=== PATIENT | male | born 1940 | race Caucasian/White ===

== ENCOUNTER 2018-01-14 08:00 | Outpatient (RCR) | payer MEDICARE, SELFPAY ==
--- NOTE | 2017-11-18 14:40 | HMH.PTOPEV ---
Rehab Outpatient Evaluation Rehab OP Evaluation Start: 11/18/17 14:00 Freq: Status: Active Protocol: Document 11/18/17 14:00 ELIABINH (Rec: 11/18/17 14:39 ELIABINH [id number]) Electronically Signed By Rico Payan PT 11/18/17 14:00 Outpatient Therapy Subjective History Subjective History This is the initial Physical Therapy evaluation for Alen Luna. Pt is a 77 y/o male referred to PT for c/o Bilateral shoulder pain and paresthesia and pain in BUE. Pt reports insiidous onset ~ 2 years ago of paresthesia. Pt reports R shoulder pain began ! 2 years ago as he was lifting a bucket out of his chicken picker truck, L shoulder pt reports he was pushing up to get out of bathtub. Pt reports L shoulder was improving but fell ~ 3 months ago and re-aggravated it. 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 Chief Complaint Pain Stiff Paresthesia Weakness Symptom Type Ache Throb Dull Numbness Tingling Symptoms Relieved By Rest/Positioning Symptoms Aggravated By Lifting Prior Functional Limitations None Current Functional Limitations Lifting Housework Dressing Driving Recreation Activity Symptom Description Intermittent Level of pain today (0-10) 0 Pain scale - at its best (0-10) 0 Pain scale - at its worst (0-10) 4 Cervical Eval Palpation Cervical/Thoracic Palpation Findings Muscle Guarding Posture Head/C-Spine Posture Sitting Position Flexed Head/C-Spine Posture Standing Position Flexed Passive Joint Mobility Cervical PIVM Dec: R C2/3 L C2/3 R C3/4 L C3/4 R C4/5 L C4/5
== END 2018-01-14 08:01 | disposition home or self-care (01) ==
LOC: PT 08:00
PROVIDERS: PCP Internal Medicine; Visit Provider Internal Medicine
DX: M54.2 Cervicalgia (principal); M25.511 Pain in right shoulder; M25.512 Pain in left shoulder
CPT/HCPCS: 97010; 97012; 97014; 97110; 97164; G0283

== ENCOUNTER → 2018-08-04 15:58 | Outpatient (POV) | payer MEDICARE, SELFPAY | DX: Z00.00 Encounter for general adult medical examination without abnormal findings (principal) ==

== ENCOUNTER → 2018-11-22 15:12 | Outpatient (CLI) | payer MEDICARE, SELFPAY ==
[2018-11-22 15:48] LABS: Basophils # 0.1 K/mm3 (0-0.2); Basophils % 1.6 % (0.1-2.0); Eosinophils # 0.3 K/mm3 (0.0-0.4); Eosinophils % 4.3 % (0.1-12.0); Hematocrit 42.1 % (42.0-52.0); Hemoglobin 14.2 g/dL (14.1-18.0); Lymphocytes # 2.1 K/mm3 (0.7-4.5); Lymphocytes % 30.9 % (10-50); Mean Corpuscular HGB Conc 33.7 g/dL (31.8-35.4); Mean Corpuscular Hemoglobin 28.6 pg (27.0-31.2); Mean Corpuscular Volume 84.8 fl (80-94); Mean Platelet Volume 9.5 fl (7.4-10.4); Monocytes # 0.4 K/mm3 (0.1-1.0); Monocytes % 5.8 % (1.7-9.3); Neutrophils % 57.4 % (37.0-80.0); Platelet Count 175 K/mm3 (142-424); Red Blood Count 4.97 M/mm3 (4.60-6.20); Red Cell Distribution Width 13.9 % (11.5-17.5); White Blood Count 6.9 K/mm3 (4.8-10.8)
[2018-11-22 17:27] LABS: Anion Gap 11.8 mEq/L (5-15); Blood Urea Nitrogen 25 mg/dL (7-18); Calcium 9.5 mg/dL (8.5-10.1); Carbon Dioxide 30 mmol/L (21.0-32.0); Chloride 101 mmol/L (98-107); Creatinine,Serum 1.31 mg/dL (0.70-1.30); Estimated Glomerular Filt Rate 53 ml/min (>60); GFR (African American) 64 ML/MIN (>60); Glucose 122 mg/dL (74-106); Sodium 139 mmol/L (136-145)
[2018-11-22 17:30] LABS: Potassium 3.8 mmoL/L (3.5-5.1)
== END ==
PROVIDERS: PCP Internal Medicine; Visit Provider Internal Medicine
DX: Z01.818 Encounter for other preprocedural examination (principal)
CPT/HCPCS: 36415; 80048; 85025; 93005

== ENCOUNTER → 2019-02-09 13:12 | Outpatient (POV) | payer MEDICARE, SELFPAY | DX: Z00.00 Encounter for general adult medical examination without abnormal findings (principal) ==

== ENCOUNTER → 2019-03-30 13:23 | Outpatient (POV) | payer MEDICARE, SELFPAY | DX: Z00.00 Encounter for general adult medical examination without abnormal findings (principal) ==

== ENCOUNTER → 2019-04-13 14:56 | Outpatient (POV) | payer MEDICARE, SELFPAY | DX: Z00.00 Encounter for general adult medical examination without abnormal findings (principal) ==

== ENCOUNTER → 2019-05-10 10:22 | Outpatient (CLI) | payer MEDICARE, SELFPAY ==
[2019-05-10 10:39] LABS: Basophils # 0.1 K/mm3 (0-0.2); Basophils % 0.7 % (0.1-2.0); Eosinophils # 0.4 K/mm3 (0.0-0.4); Eosinophils % 4.2 % (0.1-12.0); Hematocrit 41.8 % (42.0-52.0); Hemoglobin 13.8 g/dL (14.1-18.0); Lymphocytes # 1.8 K/mm3 (0.7-4.5); Lymphocytes % 19.3 % (10-50); Mean Corpuscular HGB Conc 33.1 g/dL (31.8-35.4); Mean Corpuscular Hemoglobin 27.9 pg (27.0-31.2); Mean Corpuscular Volume 84.3 fl (80-94); Monocytes # 0.7 K/mm3 (0.1-1.0); Monocytes % 7.5 % (1.7-9.3); Neutrophils # 6.4 K/mm3 (1.8-7.8); Neutrophils % 68.2 % (37.0-80.0); Platelet Count 189 K/mm3 (142-424); Red Blood Count 4.96 M/mm3 (4.60-6.20); Red Cell Distribution Width 14.6 % (11.5-17.5); White Blood Count 9.3 K/mm3 (4.8-10.8)
--- NOTE | 2019-05-10 13:14 | CT_ITS ---
Procedure: CT ABDOMEN PELVIS WO CON CLINICAL INDICATION: LOWER ABD PAIN,RLQ TENDERNESS ORAL ONLY Right lower quadrant tenderness and pain, lower abdominal pain COMPARISON: No exams were available for comparison TECHNIQUE: Axial images obtained with sagittal and coronal reformats. All CT scans at the facility use one or more dose reduction, viz: automated exposure control, ma/kV adjustment per patient size (including targeted exams where dose is matched to indication, i.e. head), or iterative reconstruction technique. FINDINGS: The lung bases are clear. There is mild fatty liver. No calcified gallstones are evident. The spleen, and adrenal glands have an unremarkable appearance. There is some small coarse calcifications in the uncinate process of the pancreas and could be related to chronic pancreatitis or small calcifications in a lymph node. No evidence of acute pancreatitis. No renal or ureteral calculi. No hydronephrosis. No intestinal obstruction or free air. Oral contrast was given with contrast noted within the large bowel. No evidence of appendicitis. There is diverticulosis of the sigmoid colon with moderate thickening of the sigmoid colon with mild infiltration of the pericolic fat consistent with mild diverticulitis. There is a fairly long segment of thickening of the sigmoid colon which could be related to muscular hypertrophy or associated colitis. No abscess or pneumoperitoneum. Artifact is present from bilateral hip prosthesis. 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 The cleft is incomplete. IMPRESSION: Diverticulitis of the sigmoid colon. There is long segment thickening of the sigmoid colon which may be due to superimposed colitis or muscular hypertrophy from the extensive diverticulosis. No abscess or pneumoperitoneum. Strongly encourage follow-up after treatment to assure resolution of the thickening as neoplasm would be included in the differential diagnosis. No evidence of appendicitis or obstructing ureteral calculus. Possible chronic pancreatitis in the head of the pancreas Dictated by: Dio Rodriguez MD 05/10/2019 13:53 Signed by: <Electronically signed by Dio Rodriguez MD in [place]> 05/10/2019 13:53
== END ==
LOC: LAB.DROPOF 10:23 → RAD 10:58
PROVIDERS: PCP Internal Medicine; Visit Provider Internal Medicine
DX: R10.31 Right lower quadrant pain (principal)
CPT/HCPCS: 74176; 85025

== ENCOUNTER → 2021-03-20 13:31 | Outpatient (POV) | payer MEDICARE, SELFPAY | DX: Z00.00 Encounter for general adult medical examination without abnormal findings (principal) ==

== ENCOUNTER → 2021-10-29 09:21 | Outpatient (CLI) | payer MEDICARE, SELFPAY ==
[2021-10-30 08:33] LABS: Covid-19 Nasal PCR Sendout Lex NOT DETECTED
== END ==
PROVIDERS: Visit Provider Nurse Practitioner
DX: Z20.822 Contact with and (suspected) exposure to COVID-19 (principal)
CPT/HCPCS: C9803; U0004; U0005

== ENCOUNTER → 2021-12-17 08:37 | Outpatient (CLI) | payer MEDICARE, SELFPAY ==
[2021-12-17 08:56] LABS: Basophils # 0.1 K/mm3 (0-0.2); Basophils % 2.1 % (0.1-2.0); Eosinophils # 0.4 K/mm3 (0.0-0.4); Eosinophils % 6.9 % (0.1-12.0); Hematocrit 44.5 % (42.0-52.0); Hemoglobin 14.3 g/dL (14.1-18.0); Lymphocytes % 32.9 % (10-50); Mean Corpuscular HGB Conc 32.2 g/dL (31.8-35.4); Mean Corpuscular Hemoglobin 28.2 pg (27.0-31.2); Mean Corpuscular Volume 87.6 fl (80-94); Monocytes # 0.4 K/mm3 (0.1-1.0); Monocytes % 6.2 % (1.7-9.3); Neutrophils # 3.1 K/mm3 (1.8-7.8); Platelet Count 177 K/mm3 (142-424); Red Blood Count 5.07 M/mm3 (4.60-6.20); Red Cell Distribution Width 14.7 % (11.5-17.5)
[2021-12-17 09:25] LABS: Alanine Aminotransferase 25 U/L (12-78); Albumin Level 4.4 g/dl (3.5-5.0); Albumin/Globulin Ratio 1.8 (1.1-1.8); Alkaline Phosphatase 31 U/L (38-126); Anion Gap 9.9 mEq/L (5-15); Aspartate Amino Transferase 26 U/L (17-59); Bilirubin,Total 0.5 mg/dl (0.2-1.3); Blood Urea Nitrogen 25 mg/dl (9-20); Calcium 9.4 mg/dl (8.4-10.2); Carbon Dioxide 26 mmol/L (22.0-30.0); Chloride 106 mmol/L (98-107); Chol/HDL Ratio 3.7 (1-3.5); Cholesterol 136 mg/dl (140-200); Estimated Glomerular Filt Rate 58 ml/min (>60); GFR (African American) 71 ML/MIN (>60); Globulin 2.5 g/dL (1.3-3.2); Glucose 120 mg/dl (74-100); HDL Cholesterol 37 mg/dl (40-60); Potassium 3.9 mmoL/L (3.5-5.1); Sodium 138 mmol/L (136-145); Total Protein,Serum 6.9 g/dl (6.3-8.2); Triglycerides 189 mg/dl (30-150); VLDL Cholesterol 38 mg/dL (0-40)
[2021-12-17 09:35] LABS: Direct LDL Cholesterol 67.96 mg/dL (100-129)
[2021-12-17 09:53] LABS: Prostate Specific Ag, Diagnost 1.64 ng/ml (0.0-4.0)
[2021-12-17 10:11] LABS: Vitamin B12 267 pg/mL (239-931)
== END ==
PROVIDERS: Visit Provider Internal Medicine
DX: I25.10 Atherosclerotic heart disease of native coronary artery without angina pectoris (principal); I25.2 Old myocardial infarction; I10 Essential (primary) hypertension; R73.01 Impaired fasting glucose; E78.5 Hyperlipidemia, unspecified; E53.8 Deficiency of other specified B group vitamins; M47.817 Spondylosis without myelopathy or radiculopathy, lumbosacral region; G60.9 Hereditary and idiopathic neuropathy, unspecified; N40.1 Benign prostatic hyperplasia with lower urinary tract symptoms; Z12.5 Encounter for screening for malignant neoplasm of prostate
CPT/HCPCS: 36415; 80053; 80061; 82607; 84153; 85025

== ENCOUNTER 2022-04-25 16:33 | Emergency (ER) | payer MEDICARE, SELFPAY ==
[2022-04-25 16:50] VITALS: BP 144/72; PULSE 88; RESP 19; TEMP 38.1; O2SAT 96; BMI 29.4
--- NOTE | 2022-04-25 17:20 | HMH.EDUTC ---
[facility] Disposition Clinical Impression: Viral syndrome Disposition: Home, Self-Care Condition on Discharge: Good Instructions: DI for COVID-19 (Suspected or Confirmed ), Preventing the Spread of Coronavirus Discharge Instructions Additional Instructions: *Monitor Temp, Over the counter Motrin or Tylenol as directed/as needed Tylenol every 4 hours and Motrin every 6 hours (as long as your family doctor has told you that you can take it) for fever or pain. and straight to ER if unable to lower temp less than 101.0 after medication given *Warm salt water gargles may help to soothe the throat *Throat Lozenges *Warm fluids like tea with honey may help to soothe the throat *Sleep elevated *Humidifier/Vaporizer Follow up IMMEDIATELY for new or worsening symptoms or no Noticeable improvement over the next 48-72 hours. 911 for difficulty breathing or swallowing You were tested for today for COVID19 your test result should be back in the next 24-48 hours, you may check your results on the [facility] My Health Portal Make sure to take your Vitamins Vit. C Vit D and Zinc if you can take them Referrals: Trae Lujan MD [Primary Care Provider] - As needed Time of Disposition: 17:25 Medical Decision Making - Carlos Inquiry Pt receiving controlled substance: No Carlos was queried for this patient: No Vital Signs: 04/25/22 16:50 Temperature 100.6 F H Temperature Source Oral Pulse Rate [Left Brachial] 88 Respiratory Rate 19 Blood Pressure [Left Arm] 144/72 H Blood Pressure Mean [Left Arm] 96 Blood Pressure Source [Left Arm] Automatic Cuff Blood Pressure Position [Left Arm] Sitting 02 Sat by Pulse Oximetry 96 Oxygen Delivery Method Room Air Orders (Tests/Meds): ORDERS Category Date Time Status Covid-19 Nasal PCR ([facility]) Routine Lab 04/25/22 16:48 Received [facility] HPI - General Stated complaint: covid test,body aches, SOA Time Seen by Provider: 04/25/22 17:20 Mode of Arrival: Ambulatory Source of Information: Patient Limitations: No Limitations Description of Symptoms (Recalled from Triage Doc. by RN): PATIENT C/O COUGH, RUNNY NOSE AND CONGESTION SINCE THIS AFTERNOON HEENT Symptoms (Recalled from RN notes): Yes Resp Symptoms (Recalled from RN notes): Yes Skin Symptoms (Recalled from RN notes): No MS Symptoms (Recalled from RN notes): No Functional Status (Recalled from RN notes): WNL - History of Present Illness Provider Complaint: Patient states that he started having fever, chills, body aches and nasal congestion today State that he talked to his family doctor and they wanted him to come in and get tested for COVID so he did - Related Data Allergies Allergy/AdvReac Type Severity Reaction Status Date / Time No Known Allergies Allergy Verified 04/25/22 17:02 - Worker's Comp Is this a Worker's Comp case?: No [facility] History - Hepatitis A Screen Attestation statement:: This patient has been screened for Hepatitis A risk factors. I have reviewed the patient's past medical history: Yes - Social History Alcohol Intake: never Occupational Status: other ROS Obtained: Yes All systems reviewed & no additional complaints, Yes Systems reviewed as appropriate & no additional complaints - Constitutional Constitutional: Reports system reviewed and no additional complaints, except as docu, Reports body ache, Reports chills, Reports fever(s) - ENT Ears, Nose, Mouth, and Throat: Reports system reviewed and no additional complaints, except as docu, Reports nasal congestion - Cardiovascular Cardiovascular: Reports system reviewed and no additional complaints, except as docu - Respiratory Respiratory: Reports system reviewed and no additional complaints, except as docu - Gastrointestinal Gastrointestingal: Reports: system reviewed and no additional complaints, except as docu Physical Exam - General General appearance: alert, in no apparent distress - Expanded ENT Exam Nose exam: Absent: sinus tenderne
[2022-04-25 17:25] VITALS: BP 144/72; PULSE 88; RESP 19; TEMP 38.1; O2SAT 96
== END 2022-04-25 17:29 | disposition home or self-care (01) ==
PROVIDERS: Emergency Provider Nurse Practitioner; PCP Internal Medicine
DX: B34.9 Viral infection, unspecified (principal)
CPT/HCPCS: 99212; C9803; G0463; U0003; U0005

== ENCOUNTER 2022-05-06 09:25 | Emergency (ER) | payer MEDICARE, SELFPAY ==
[2022-05-06 10:26] VITALS: BP 0/0; PULSE 0; RESP 0; TEMP -17.7; TEMP 0
== END 2022-05-06 10:27 | disposition left against medical advice (07) ==
LOC: UTC 09:28
PROVIDERS: Emergency Provider Nurse Practitioner; PCP Internal Medicine
DX: Z53.21 Procedure and treatment not carried out due to patient leaving prior to being seen by health care provider (principal)

== ENCOUNTER → 2022-07-11 13:57 | Outpatient (CLI) | payer MEDICARE, SELFPAY ==
--- NOTE | 2022-07-11 14:01 | US_ITS ---
FINAL REPORT CLINICAL HISTORY: CLAUDICATION,HTN,EX SMOKER,CAD,REST PAIN FINDINGS: ANKLE-BRACHIAL PRESSURE INDICES Pressure indices are as follows: RIGHT LOWER EXTREMITY: Ankle-brachial pressure index: 1.1 Comments: Normal LEFT LOWER EXTREMITY: Ankle-brachial pressure index: 1.1 Comments: Normal IMPRESSION: No evidence of significant obstructive peripheral vascular disease of the lower extremities Reviewed, Interpreted and Dictated by Rai Maldonado III, MD Transcribed by Saida Bailey Authenticated and [facility]
== END ==
PROVIDERS: PCP Internal Medicine; Visit Provider Internal Medicine
DX: I70.213 Atherosclerosis of native arteries of extremities with intermittent claudication, bilateral legs (principal)
CPT/HCPCS: 93923

== ENCOUNTER → 2022-09-26 11:57 | Outpatient (CLI) | payer MEDICARE, SELFPAY ==
[2022-09-26 12:34] LABS: Basophils # 0.1 K/mm3 (0-0.2); Basophils % 1.3 % (0.1-2.0); Eosinophils # 0.4 K/mm3 (0.0-0.4); Eosinophils % 5.9 % (0.1-12.0); Hematocrit 42.5 % (42.0-52.0); Hemoglobin 13.8 g/dL (14.1-18.0); Lymphocytes # 1.5 K/mm3 (0.7-4.5); Lymphocytes % 25.5 % (10-50); Mean Corpuscular HGB Conc 32.5 g/dL (31.8-35.4); Mean Corpuscular Hemoglobin 27.6 pg (27.0-31.2); Mean Corpuscular Volume 85.2 fl (80-94); Monocytes # 0.4 K/mm3 (0.1-1.0); Neutrophils # 3.6 K/mm3 (1.8-7.8); Neutrophils % 60.3 % (37.0-80.0); Platelet Count 170 K/mm3 (142-424); Red Blood Count 4.99 M/mm3 (4.60-6.20); Red Cell Distribution Width 14.2 % (11.5-17.5); White Blood Count 5.9 K/mm3 (4.8-10.8)
[2022-09-26 15:34] LABS: Erythrocyte Sedimentation Rate 15 mm/hr (0-20)
== END ==
PROVIDERS: PCP Internal Medicine; Visit Provider Internal Medicine
DX: I10 Essential (primary) hypertension (principal); I73.9 Peripheral vascular disease, unspecified; G60.9 Hereditary and idiopathic neuropathy, unspecified; M48.062 Spinal stenosis, lumbar region with neurogenic claudication; M15.0 Primary generalized (osteo)arthritis
CPT/HCPCS: 85025; 85651

== ENCOUNTER 2022-11-13 09:00 | Outpatient (RCR) | payer MEDICARE, SELFPAY | END 2022-11-13 09:05 | disposition home or self-care (01) | LOC: PT 09:00 | PROVIDERS: PCP Internal Medicine; Visit Provider Internal Medicine | DX: M54.2 Cervicalgia (principal) | CPT/HCPCS: 97010; 97014; 97110; 97163; G0283 ==

== ENCOUNTER 2023-02-08 19:28 | Observation (INO) | payer MEDICARE, SELFPAY ==
[2023-02-08] VITALS (17 sets, daily range): BP systolic 99–162; BP diastolic 48–89; PULSE 42–131; RESP 14–22; TEMP 36.7–37; O2SAT 94–98; BMI 25.7
--- NOTE | 2023-02-08 19:32 | ECG_ITS ---
APPROVED REPORT Exam: Resting ECG HR:135 bpm ECG Measurements Heart Rate 135 AXES QRSd 109 QRS 54 QT 302 T 16 QTc 381 Conclusion ATRIAL FIBRILLATION WITH RAPID VENTRICULAR RESPONSE WITH ABERRANT CONDUCTION OR VENTRICULAR PREMATURE COMPLEXES NONSPECIFIC ST & T-WAVE ABNORMALITY ABNORMAL RHYTHM ECG UNCONFIRMED REPORT Electronically signed by : Catrachito Montana MD 02/09/2023 20:22:11
--- NOTE | 2023-02-08 19:46 | XR_ITS ---
PROCEDURE INFORMATION: Exam: XR Chest Exam date and time: 02/08/2023 7:57 PM Age: 82 years old Clinical indication: Pain; Chest pressure; Additional info: Chest discomfort TECHNIQUE: Imaging protocol: Radiologic exam of the chest. Views: 2 views. COMPARISON: CT ABDOMEN PELVIS WO CON 05/10/2019 1:16 PM FINDINGS: Lungs: Lungs are hypoinflated. No focal consolidation Pleural spaces: No pleural effusion. No pneumothorax. Heart/Mediastinum: No cardiomegaly. Bones/joints: Multilevel degenerative type changes of the spine. No acute osseous abnormality. IMPRESSION: No acute cardiopulmonary abnormality.
[2023-02-08 19:50] LABS: Basophils # 0.1 K/mm3 (0-0.2); Chloride 100 mmol/L (98-107); Eosinophils # 0.5 K/mm3 (0.0-0.4); Eosinophils % 8.4 % (0.1-12.0); Hematocrit 39.6 % (42.0-52.0); Hemoglobin 13.1 g/dL (14.1-18.0); Lymphocytes # 1.3 K/mm3 (0.7-4.5); Lymphocytes % 22.7 % (10-50); Mean Corpuscular HGB Conc 33.1 g/dL (31.8-35.4); Mean Corpuscular Hemoglobin 28.1 pg (27.0-31.2); Mean Corpuscular Volume 84.9 fl (80-94); Mean Platelet Volume 8.9 fl (7.4-10.4); Monocytes # 0.3 K/mm3 (0.1-1.0); Monocytes % 5.1 % (1.7-9.3); Neutrophils # 3.6 K/mm3 (1.8-7.8); Neutrophils % 62.8 % (37.0-80.0); Platelet Count 160 K/mm3 (142-424); Red Blood Count 4.66 M/mm3 (4.60-6.20); Red Cell Distribution Width 14.9 % (11.5-17.5); Sodium 137 mmol/L (136-145); White Blood Count 5.7 K/mm3 (4.8-10.8)
[2023-02-08 19:51] LABS: Potassium 3.7 mmoL/L (3.5-5.1)
[2023-02-08 19:53] LABS: Alanine Aminotransferase 26 U/L (12-78); Albumin Level 4.2 g/dl (3.5-5.0); Albumin/Globulin Ratio 1.3 (1.1-1.8); Alkaline Phosphatase 38 U/L (38-126); Anion Gap 11.7 mEq/L (5-15); Aspartate Amino Transferase 30 U/L (17-59); Bilirubin,Total 0.3 mg/dl (0.2-1.3); Blood Urea Nitrogen 38 mg/dl (9-20); Carbon Dioxide 29 mmol/L (22.0-30.0); Creatinine Clearance Estimated 34 mL/min (50-200); Estimated Glomerular Filt Rate 29 ml/min (>60); GFR (African American) 35 ML/MIN (>60); Globulin 3.3 g/dL (1.3-3.2); Total Protein,Serum 7.5 g/dl (6.3-8.2)
[2023-02-08 19:54] LABS: Calcium 9.9 mg/dl (8.4-10.2); Glucose 131 mg/dl (74-100)
[2023-02-08 20:03] LABS: NT Pro Brain Natriuretic Pep. 2590 pg/mL (0-450)
--- NOTE | 2023-02-08 20:05 | PC.NURSE ---
PATIENT TO RADIOLOGY
[2023-02-08 20:07] LABS: Troponin I < 0.01 ng/ml (0.00-0.034)
[2023-02-08 20:22] LABS: Magnesium 1.9 mg/dl (1.6-2.3)
--- NOTE | 2023-02-08 20:29 | HMH.EDCP ---
Discharge Plan Disposition Patient Disposition: Admitted As Inpatient Referrals Follow up/Referrals: Trae Lujan MD [Primary Care Provider] - See instructions Clinical Impressions Clinical Impression: Chest pain, Atrial fibrillation with rapid ventricular response, CHF (congestive heart failure), Renal insufficiency Discharge ED Provider: Avis (ED),Clarence Barnes Chest Pain HPI General Chief Complaint: Chest Pain Stated Complaint: CP Time Seen by Provider: 02/08/23 20:00 Mode of Arrival: Family Vehicle Source of Information: Patient, Spouse and Medical Record Limitations: No Limitations Description of Symptoms (Recalled from ER Triage Doc. by RN): 82 yo male with previous medical history of GERD and hypertension, presents with CC of chest pain that didn't stop despite normal maneuvers. States normally he drinks milk or water and it usually abates, but this time it didn't and he got worried. Significant other states he has also been overly tired throughout the past week. Mentions he had an episode of food poisoning a couple of weeks ago and doesn't feel like he's recovered from that. History of Present Illness HPI narrative: pt with onset of new type of chest pain has hx of gerd and cad and htn - pt has no hx of a fib MD complaint: chest pain indicative of cardiac Onset (ago): hour(s) Activity at onset: during rest Pain location: left chest Severity: moderate Quality: aching Risk Factors for CAD: Hypertension and Family Hx of CAD Treatments prior to or on arrival for Cardiac Chest Pain: none MARGE Score for Non-Stemi Age of Patient: 80-89 years old Heart Rate: 90-109 bpm Systolic Blood Pressure: 120-139 mmhg Serum Creatinine: 2.00-3.99 mg/dl CHF Killip Class: II-Pulmonary Rales or Jug Other Risk Factors: None Non-Stemi Risk Score: 181 Risk Stratification: [id number] = High Risk Related Data Prior Cardiac Testing/Procedures: Stenting Allergies Allergy/AdvReac Type Severity Reaction Status Date / Time No Known Allergies Allergy Verified 04/25/22 17:02 [facility] Disclaimer: The information contained in this section may have been updated after the patient was seen, as this information can be updated by other users. Social History Smoking Status: Former smoker alcohol intake: never current occupational status: other Travel in the last 8 weeks: None ROS Obtained: Yes All systems reviewed & no additional complaints except as documented Physical Exam General General appearance: alert Head Head exam: normocephalic Eye Eye exam: Present PERRL and EOMI ENT ENT exam: Present mucous membranes moist Neck Neck exam: Present trachea midline Respiratory Respiratory exam: Present other (dec bs bilat ); Absent respiratory distress Cardiovascular Cardiovascular exam: Present irregular rhythm, systolic murmur and +S4 Abdominal Exam Abdominal exam: Present soft Extremities Exam Extremities exam: Present full ROM Neurological Exam Neurological exam: Present alert, oriented X3 and CN II-XII intact; Absent motor sensory deficit Psychiatric Psychiatric exam: Present normal affect Skin Skin exam: Absent rash Medical Decision Making Medical Records Medical records reviewed: Yes I reviewed the patient's medical records. Carlos Inquiry Pt receiving controlled substance: No Vital Signs: 02/08/23 19:35 02/08/23 20:24 Temperature 98.2 F 98.1 F Temperature Source Oral Oral Pulse Rate 42 L Pulse Rate [Right Brachial] 131 H Respiratory Rate 22 16 Blood Pressure 117/63 Blood Pressure [Right Arm] 162/89 H Blood Pressure Mean [Right Arm] 113 Blood Pressure Source Automatic Cuff Blood Pressure Source [Right Arm] Automatic Cuff Blood Pressure Position Sitting Blood Pressure Position [Right Arm] Sitting 02 Sat by Pulse Oximetry 97 Oxygen Delivery Method Room Air Room Air Lab Data Lab results reviewed: Yes I reviewed the patient's lab results. Lab Results 02/08/23 19:34: WBC 5.7, RBC 4.66, Hgb 1
--- NOTE | 2023-02-08 20:32 | PC.NURSE ---
Hospitalist paged for possible admission
[2023-02-08 20:41] LABS: T4 (Thyroxine) 8.1 ug/dl (5.53-11.0)
[2023-02-08 20:54] LABS: Thyroid Stimulating Hormone 2.19 uIU/mL (0.465-4.68)
--- NOTE | 2023-02-08 21:00 | ECG_ITS ---
APPROVED REPORT Exam: Resting ECG HR:53 bpm ECG Measurements Heart Rate 53 AXES QRSd 104 QRS 55 QT 299 T -22 QTc 281 Conclusion SUPRAVENTRICULAR BRADYCARDIA MODERATE T-WAVE ABNORMALITY, CONSIDER INFERIOR ISCHEMIA [-0.1+ mV T-WAVE IN II/aVF] ABNORMAL ECG UNCONFIRMED REPORT Electronically signed by : Catrachito Montana MD 02/09/2023 20:21:31
--- NOTE | 2023-02-08 21:04 | EXP.HP ---
History of Present Illness *Admission Date: 02/08/23 *Reason for visit:: Palpitations *History of present illness: This is a very pleasant 82-year-old male with a past medical history of telemetry monitoring coronary artery disease status post 1 stent hypertension, BPH, GERD who presents emergency department today with complaints of palpitations. He reports having discomfort in the center of his chest earlier today and attributed it to his chronic acid reflux. He attempted to take his home medications but symptoms persisted. He then recalls feeling and hearing his heartbeat rapidly. This complaint associated with some chest discomfort brought him to the emergency department for treatment. He denies fever, cough, congestion currently but states that he had a GI bug approximately 3 weeks ago for which he ran a 3-day fever. He did endorse some nausea at that time but that has since subsided. He denies any other cardiac history other than CAD and hypertension. No history of A-fib. 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 He was medicated with 20 mg of IV diltiazem with decrease in heart rate into the 70s. He was subsequently put on a Cardizem drip at 5 mg but had further decrease in heart rate into the 50s with conversion to normal sinus rhythm. At the time of admission, bradycardic in the 50s but patient is stable and without symptoms. Given new onset A-fib with RVR, he will be admitted to the hospital service for further evaluation management. Other labs of note at a time admission is a BNP of 2590. CASTILLO with a creatinine of 2.2 which is increased from baseline of 1.1. No formal echo information available but patient does not appear volume overloaded on exam. [facility] Disclaimer: The information contained in this section may have been updated after the patient was seen, as this information can be updated by other users. Medical History (Updated 02/08/23 @ 23:27 by Lexi Melendez RN) Cataract SDH (subdural hematoma) Surgical History Hip joint replacement status Stented coronary artery Family History No significant family history Social History (Updated 02/08/23 @ 23:25 by Lexi Melendez RN) Smoking Status: Former smoker alcohol intake: never current occupational status: other Travel in the last 8 weeks: None Review of Systems Review of Systems Review of systems:: pertinent systems reviewed and negative unless documented below Review of systems (narrative): see HPI Meds Home Medications and Allergies Home Medications Medication Instructions Recorded Confirmed Type famotidine 20 mg tablet 20 mg PO BID Acid reflux 02/08/23 02/08/23 History gabapentin 100 mg capsule 100 mg PO BID Pain 02/08/23 02/08/23 History metoprolol tartrate 25 mg tablet 25 mg PO BID Heart rate 02/08/23 02/08/23 History rosuvastatin 10 mg tablet 10 mg PO HS Cholesterol 02/08/23 02/09/23 History tamsulosin 0.4 mg capsule 0.4 mg PO BID Prostate 02/08/23 02/09/23 History amiodarone 400 mg tablet 400 mg PO BID 30 days #60 tabs 02/09/23 Rx fenofibric acid (choline) 135 mg 135 mg PO DAILY Cholesterol 02/09/23 02/09/23 History capsule,delayed release lisinopril 20 2 tab PO DAILY High blood pressure 02/09/23 02/09/23 Rx mg-hydrochlorothiazide 12.5 mg 30 days #0 tabs tablet New Prescriptions to Start Prescriptions: amiodarone Jayson Lemus Allergies Allergy/AdvReac Type Severity Reaction Status Date / Time No Known Allergies Allergy Verified 04/25/22 17:02 Exam Data for Last 24 hours Vital signs and Labs for Last 24 Hours: Temp Pulse Resp BP Pulse Ox 98.1 F 89 16 113/55 L 97 02/08/23 20:24
[2023-02-08 21:28] LABS: Coronavirus 19, PCR Not Detected (NotDetected); Influenza A, PCR Not Detected (NotDetected); Influenza B, PCR Not Detected (NotDetected)
--- NOTE | 2023-02-08 21:40 | PC.NURSE ---
Cardizem gtt stopped 15 mins ago d/t pt converting to NSR and verbal order from Margie,Hospitalist to stop gtt.
--- NOTE | 2023-02-08 21:52 | PC.NURSE ---
Attempted to call report, was advised per receiving nurse that she was unable to take report because they were giving another nurses meds. State it would be at least 20-30 mins.
--- NOTE | 2023-02-08 21:55 | PC.NURSE ---
Received call from charge phone-[phone], nurse Marika who stated that they would not be taking any patients for the time being till other nurse returned to floor. House was notified.
--- NOTE | 2023-02-08 23:04 | PC.NURSE ---
pt arrived to floor at this time
[2023-02-08 23:15] LABS: Troponin I 0.02 ng/ml (0.00-0.034)
[2023-02-09] VITALS (8 sets, daily range): BP systolic 133–159; BP diastolic 42–76; PULSE 56–69; RESP 18–20; TEMP 36.6–36.8; O2SAT 95–99; BMI 28.0
[2023-02-09 02:40] LABS: Troponin I 0.04 ng/ml (0.00-0.034)
[2023-02-09 06:12] LABS: Basophils # 0.1 K/mm3 (0-0.2); Basophils % 0.9 % (0.1-2.0); Mean Corpuscular Volume 85.5 fl (80-94)
[2023-02-09 06:14] LABS: Cholesterol 111 mg/dl (140-200); HDL Cholesterol 28 mg/dl (40-60); Triglycerides 175 mg/dl (30-150); VLDL Cholesterol 35 mg/dL (0-40)
[2023-02-09 06:17] LABS: Anion Gap 12.8 mEq/L (5-15); Blood Urea Nitrogen 31 mg/dl (9-20); Calcium 8.9 mg/dl (8.4-10.2); Carbon Dioxide 25 mmol/L (22.0-30.0); Chloride 104 mmol/L (98-107); Creatinine Clearance Estimated 46 mL/min (50-200); Estimated Glomerular Filt Rate 36 ml/min (>60); GFR (African American) 44 ML/MIN (>60); Glucose 110 mg/dl (74-100); Magnesium 1.9 mg/dl (1.6-2.3); Potassium 3.8 mmoL/L (3.5-5.1); Sodium 138 mmol/L (136-145)
[2023-02-09 06:25] LABS: Direct LDL Cholesterol 69.16 mg/dL (100-129)
[2023-02-09 06:27] LABS: Eosinophils # 0.4 K/mm3 (0.0-0.4); Eosinophils % 7.8 % (0.1-12.0); Hematocrit 35.2 % (42.0-52.0); Lymphocytes # 1.1 K/mm3 (0.7-4.5); Lymphocytes % 19.5 % (10-50); Mean Corpuscular HGB Conc 32.8 g/dL (31.8-35.4); Mean Corpuscular Hemoglobin 28.1 pg (27.0-31.2); Mean Platelet Volume 9.1 fl (7.4-10.4); Monocytes # 0.3 K/mm3 (0.1-1.0); Monocytes % 5.7 % (1.7-9.3); Neutrophils # 3.7 K/mm3 (1.8-7.8); Neutrophils % 66.2 % (37.0-80.0); Platelet Count 143 K/mm3 (142-424); Red Blood Count 4.12 M/mm3 (4.60-6.20); Red Cell Distribution Width 15.2 % (11.5-17.5); White Blood Count 5.6 K/mm3 (4.8-10.8)
[2023-02-09 06:28] LABS: Hemoglobin 11.6 g/dL (14.1-18.0)
--- NOTE | 2023-02-09 07:14 | HMH.PHAINT1 ---
Pharmacy Intervention Comments: HOME MEDICATION LIST VERIFIED THROUGH LIST FROM OUTSIDE PHARMACY.
[2023-02-09 07:16] LABS: Troponin I 0.03 ng/ml (0.00-0.034)
--- NOTE | 2023-02-09 10:51 | EXP.DC.SUM ---
General Admission date:: 02/08/23 Discharge date: 02/09/23 HPI HPI HPI: This is a very pleasant 82-year-old male with a past medical history of telemetry monitoring coronary artery disease status post 1 stent hypertension, BPH, GERD who presents emergency department today with complaints of palpitations. He reports having discomfort in the center of his chest earlier today and attributed it to his chronic acid reflux. He attempted to take his home medications but symptoms persisted. He then recalls feeling and hearing his heartbeat rapidly. This complaint associated with some chest discomfort brought him to the emergency department for treatment. He denies fever, cough, congestion currently but states that he had a GI bug approximately 3 weeks ago for which he ran a 3-day fever. He did endorse some nausea at that time but that has since subsided. He denies any other cardiac history other than CAD and hypertension. No history of A-fib. 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 He was medicated with 20 mg of IV diltiazem with decrease in heart rate into the 70s. He was subsequently put on a Cardizem drip at 5 mg but had further decrease in heart rate into the 50s with conversion to normal sinus rhythm. At the time of admission, bradycardic in the 50s but patient is stable and without symptoms. Given new onset A-fib with RVR, he will be admitted to the hospital service for further evaluation management. Other labs of note at a time admission is a BNP of 2590. CASTILLO with a creatinine of 2.2 which is increased from baseline of 1.1. No formal echo information available but patient does not appear volume overloaded on exam. Hospital Course Hospital Course Hospital Course: Admitted for A-fib. Stabilized overnight. Converted to sinus rhythm. Cardiology consulted. Problems addressed as follows: Atrial fibrillation with RVR Patient given single dose of diltiazem in the ER, heart rate converted overnight to normal sinus rhythm. We will continue home metoprolol. Cardiology was consulted. Recommended initiating on amiodarone for rhythm control. Will defer on anticoagulation at this time given patient's history of concerning subdural hematoma. Monitored on telemetry with normal sinus rhythm after conversion. Troponins remain negative. Stable for discharge home with close outpatient follow-up with cardiology. CASTILLO Likely secondary to prerenal given recent GI illness in addition to FREDDIE inhibitor usage. Held FREDDIE inhibitor's at this time. Creatinine improved from 2.2 on admission to 1.7 on discharge. Baseline is 1.2. Continue oral rehydration. Okay to resume FREDDIE inhibitor tomorrow at decreased dose. Recommend lisinopril HCTZ 2 tablets once daily instead of twice daily. Recommend repeat BMP in 1 week to monitor kidney function. Hypertension Normotensive at this time. Continue lisinopril HCTZ 2 tablets once daily instead of twice daily, initiate tomorrow morning. Continue oral metoprolol per home regimen. BPH Continue Flomax Stable for discharge home. Spent 40 minutes in discharge counseling and direct care with patient. Exam Data for Last 24 hours Vital signs and Labs for Last 24 Hours: Temp Pulse Resp BP Pulse Ox 97.8 F 56 L 20 140/74 95 02/09/23 08:00 02/09/23 10:00 02/09/23 10:00 02/09/23 10:00 02/09/23 10:00 Laboratory Results - last 24 hr 02/08/23 19:34: WBC 5.7, RBC 4.66, Hgb 13.1 L, Hct 39.6 L, MCV 84.9, MCH 28.1, MCHC 33.1, RDW 14.9, Plt Count 160, MPV 8.9, Neut % (Auto) 62.8, Lymph % (Auto) 22.7, Maverick % (Auto) 5.1, Eos % (Auto) 8.4, Baso % (Auto) 1.0, Neut # (Auto) 3.6, Lymph # (Auto) 1.3, Maverick # (Auto) 0.3, Eos # (Auto) 0.5 H, Baso # (Auto) 0.1 02/08/23 19:34: Sodium 137, Potassium 3.7, Chloride 100, Carbon Dioxide 29, Anion Gap 11
--- NOTE | 2023-02-09 11:29 | EXP.CARD.CON ---
History of Present Illness History of Present Illness Consult date: 02/09/23 Requesting physician: Jayson Lemus Consult reason: atrial fibrillation Chief complaint: palpitations History of present illness: This is an 82-year-old white gentleman who presented to the emergency department with palpitations. The patient has a history of coronary artery disease with stenting approximately 10 years ago, hypertension, BPH and GERD. The patient states that he had been having a discomfort in his chest earlier in the day prior to admission that he thought was his acid reflux. He states that he can usually drink water and this goes away but it continued to persist. He states that he just remembers his heart beating really fast and feeling like he had a rapid heartbeat. He states that this lasted for about 2 hours and then he decided to come into the emergency department. The patient was found to be in atrial fibrillation with RVR, heart rate in the 130s. The patient was treated with IV diltiazem and his heart rate dropped to the 70s. He was subsequently started on a diltiazem drip and he further decreased to heart rate in the 50s and converted to sinus rhythm. The diltiazem drip was then stopped. He was restarted on his home dose of metoprolol. This morning he denies any chest pain or pressure. He denies any shortness of breath or edema. He denies any fever, chills, nausea, vomiting, diarrhea, PND or orthopnea. The patient does report that he has not followed with cardiology in several years but has felt well until he had this episode with racing of the heart. The patient's BNP was elevated at 2590 and his creatinine was elevated at 2.2 with a baseline creatinine of 1.1. The patient denies any shortness of breath or lower extremity edema. He has no JVD on exam. [facility] Disclaimer: The information contained in this section may have been updated after the patient was seen, as this information can be updated by other users. Medical History (Updated 02/09/23 @ 11:33 by Lizzeth Gómez APRN) CASTILLO (acute kidney injury) BPH (benign prostatic hyperplasia) Cataract CHF (congestive heart failure) Coronary artery disease Hyperlipidemia Hypertension Paroxysmal atrial fibrillation SDH (subdural hematoma) Surgical History (Updated 02/09/23 @ 11:33 by Lizzeth Gómez APRN) Hip joint replacement status Stented coronary artery Family History Other No significant family history Social History (Updated 02/08/23 @ 23:25 by Lexi Melendez, ALEJANDRA) Smoking Status: Former smoker alcohol intake: never current occupational status: other Travel in the last 8 weeks: None Exam Data for Last 24 hours Vital signs and Labs for Last 24 Hours: Temp Pulse Resp BP Pulse Ox 97.8 F 56 L 20 140/74 95 02/09/23 08:00 02/09/23 10:00 02/09/23 10:00 02/09/23 10:00 02/09/23 10:00 Laboratory Results - last 24 hr 02/08/23 19:34: WBC 5.7, RBC 4.66, Hgb 13.1 L, Hct 39.6 L, MCV 84.9, MCH 28.1, MCHC 33.1, RDW 14.9, Plt Count 160, MPV 8.9, Neut % (Auto) 62.8, Lymph % (Auto) 22.7, Taliaferro % (Auto) 5.1, Eos % (Auto) 8.4, Baso % (Auto) 1.0, Neut # (Auto) 3.6, Lymph # (Auto) 1.3, Taliaferro # (Auto) 0.3, Eos # (Auto) 0.5 H, Baso # (Auto) 0.1 02/08/23 19:34: Sodium 137, Potassium 3.7, Chloride 100, Carbon Dioxide 29, Anion Gap 11.7, BUN 38 H, Creatinine 2.20 H, Estimated Creat Clear 34, Estimated GFR 29 L, Est GFR ( Amer) 35 L, Glucose 131 H, Calcium 9.9, Total Bilirubin 0.3, AST 30, ALT 26, Alkaline Phosphatase 38, Troponin I < 0.01, NT-Pro-B Natriuret Pep 2590 H, Total Protein 7.5, Albumin 4.2, Globulin 3.3 H, Albumin/Globulin Ratio 1.3 02/08/23 19:34: Magnesium 1.9, TSH 2.19, Thyroxine (T4) 8.1 02/08/23 20:24: SARS-CoV-2 (PCR) Not detected, Influenza A Untype (PCR) Not detected, Influenza Type B (PCR) Not detected 02/08/23 22:45: Troponin I 0.02 02/09/23 02:00: Troponin I 0.04 H 02/09/23 05:30: WBC 5.6
[2023-02-09 14:15] LABS: Chloride 103 mmol/L (98-107); Potassium 3.8 mmoL/L (3.5-5.1); Sodium 136 mmol/L (136-145)
[2023-02-09 14:18] LABS: Anion Gap 9.8 mEq/L (5-15); Blood Urea Nitrogen 27 mg/dl (9-20); Carbon Dioxide 27 mmol/L (22.0-30.0); Creatinine Clearance Estimated 48 mL/min (50-200); Estimated Glomerular Filt Rate 39 ml/min (>60); GFR (African American) 47 ML/MIN (>60); Glucose 112 mg/dl (74-100)
--- NOTE | 2023-02-09 14:39 | HMH.PHAINT1 ---
Pharmacy Intervention Comments: Discharge medication counseling completed. Spoke to patient and his . Patient was starting amiodarone. I told him to take 1 tab twice daily and to watch for serious side effects such as abnormal heartbeat, difficulty breathing, or vision changes and to notify his doctor right away if any of this occurs. Stressed that this med could have many potential serious side effects and regular follow up with his doctor is necessary. Warned of less serious side effects such as stomach upset and told patient he could take it with food if this happened. Urged him to take it the same way every day (i.e. either with food or without). The directions on the patient's lisinopril had changed as well. Told him that instead of taking 2 pills twice daily he was now to take two pills once daily. Patient acted as though this had already been discussed with him and verbalized understanding. He had no further questions.
--- NOTE | 2023-02-10 14:18 | CARE MANAGER ---
Spoke with patient related to hospital discharge. He states he is exhausted but he is okay. He follows up with PCP tomorrow and is aware of follow up appointment with cardiology. He is also aware of medication changes. Denies questions or concerns. ALEJANDRA Burnett
== END 2023-02-09 15:00 | disposition home or self-care (01) ==
LOC: ER 20:25 → 2ND 21:18
PROVIDERS: Family Medicine; Nurse Practitioner Acute Care; Admitting Provider Internal Medicine Adolescent Medicine; Emergency Provider Emergency Medicine; PCP Internal Medicine; Visit Provider Internal Medicine Adolescent Medicine
DX: I11.0 Hypertensive heart disease with heart failure; N17.9 Acute kidney failure, unspecified; N40.0 Benign prostatic hyperplasia without lower urinary tract symptoms; I48.0 Paroxysmal atrial fibrillation; Z95.5 Presence of coronary angioplasty implant and graft; I25.10 Atherosclerotic heart disease of native coronary artery without angina pectoris; I49.5 Sick sinus syndrome; Z79.899 Other long term (current) drug therapy; I50.9 Heart failure, unspecified; E78.5 Hyperlipidemia, unspecified; Z20.822 Contact with and (suspected) exposure to COVID-19
CPT/HCPCS: G0378; 36415; 71046; 80048; 80053; 80061; 83735; 83880; 84436; 84443; 84484; 85025; 87636; 93005; 93306; 99285; C9803; U0003; U0005

== ENCOUNTER → 2023-02-11 10:36 | Outpatient (CLI) | payer MEDICARE, SELFPAY ==
--- NOTE | 2023-02-11 10:58 | ECG_ITS ---
APPROVED REPORT Exam: Resting ECG HR:41 bpm ECG Measurements Heart Rate 41 AXES QRSd 109 QRS 72 QT 522 T 64 QTc 460 Conclusion JUNCTIONAL BRADYCARDIA ABNORMAL RHYTHM ECG Electronically signed by : Trae Lujan MD 02/23/2023 09:01:55
[2023-02-11 11:11] LABS: Anion Gap 19.3 mEq/L (5-15); Blood Urea Nitrogen 41 mg/dl (9-20); Calcium 9.3 mg/dl (8.4-10.2); Carbon Dioxide 26 mmol/L (22.0-30.0); Chloride 95 mmol/L (98-107); Creatine Kinase 88 U/L (55-170); Estimated Glomerular Filt Rate 23 ml/min (>60); GFR (African American) 28 ML/MIN (>60); Glucose 120 mg/dl (74-100); Potassium 4.3 mmoL/L (3.5-5.1); Sodium 136 mmol/L (136-145)
== END ==
PROVIDERS: PCP Internal Medicine; Visit Provider Internal Medicine
DX: I48.0 Paroxysmal atrial fibrillation (principal); R00.1 Bradycardia, unspecified; M79.10 Myalgia, unspecified site; N17.1 Acute kidney failure with acute cortical necrosis
CPT/HCPCS: 36415; 80048; 82550; 93005

== ENCOUNTER 2023-02-16 12:07 | Emergency (ER) | payer MEDICARE, SELFPAY ==
--- NOTE | 2023-02-16 12:04 | ECG_ITS ---
APPROVED REPORT Exam: Resting ECG HR:69 bpm ECG Measurements Heart Rate 69 AXES OK 219 P 66 QRSd 113 QRS 52 QT 441 T 44 QTc 460 Conclusion SINUS RHYTHM WITH FIRST DEGREE AV BLOCK MODERATE INTRAVENTRICULAR CONDUCTION DELAY [110+ ms QRS DURATION] NONSPECIFIC T-WAVE ABNORMALITY ABNORMAL ECG UNCONFIRMED REPORT Electronically signed by : Catrachito Montana MD 02/17/2023 17:30:57
[2023-02-16 12:07] VITALS: BP 196/80; PULSE 78; RESP 17; TEMP 36.6; O2SAT 96; BMI 28.5
--- NOTE | 2023-02-16 12:56 | HMH.EDGENADL ---
Discharge Plan Disposition Patient Disposition: Home, Self-Care Condition: Good Prescriptions Prescriptions: No Action famotidine 20 mg tablet 20 mg PO BID Label Comments: TAKE ONE TABLET BY MOUTH TWICE DAILY tamsulosin 0.4 mg capsule 0.4 mg PO BID Label Comments: TAKE ONE CAPSULE BY MOUTH TWICE DAILY gabapentin 100 mg capsule 100 mg PO BID Label Comments: TAKE ONE CAPSULE BY MOUTH TWICE DAILY MAY CAUSE DROWSINESS rosuvastatin 10 mg tablet 10 mg PO HS Label Comments: TAKE ONE TABLET BY MOUTH EVERY DAY AT BEDTIME fenofibric acid (choline) 135 mg capsule,delayed release(DR/EC) 135 mg PO DAILY Label Comments: TAKE ONE CAPSULE BY MOUTH EVERY DAY amiodarone 200 mg tablet 200 mg PO DAILY Referrals Follow up/Referrals: Trae Lujan MD [Primary Care Provider] - See instructions Activity Restrictions/Add. Instructions Additional Instructions/Restrictions: Continue the amiodarone as prescribed 200 g once daily follow-up tomorrow with your sand cutter as scheduled. Clinical Impressions Clinical Impression: Hypertension Discharge ED Provider: Darius Chaney General Adult HPI General Stated complaint: hypertension Time Seen by Provider: 02/16/23 12:51 History of Present Illness HPI narrative: Patient presents with elevated blood pressure. He is otherwise asymptomatic and denies headache chest pain or neurological symptoms. He recently had one of his blood pressure medications discontinued because it was making his heart rate dropped too low. Now his only medication for blood pressure and atrial fibrillation his amiodarone at 2 mg once daily. He checked his pressure earlier that morning and found systolic to be in excess of 200 which is probably what prompted his ED visit today. Related Data Home Medications Medication Instructions Recorded Confirmed famotidine 20 mg tablet 20 mg PO BID Acid reflux 02/08/23 02/16/23 gabapentin 100 mg capsule 100 mg PO BID Pain 02/08/23 02/16/23 rosuvastatin 10 mg tablet 10 mg PO HS Cholesterol 02/08/23 02/16/23 tamsulosin 0.4 mg capsule 0.4 mg PO BID Prostate 02/08/23 02/16/23 fenofibric acid (choline) 135 mg 135 mg PO DAILY Cholesterol 02/09/23 02/16/23 capsule,delayed release amiodarone 200 mg tablet 200 mg PO DAILY afib 02/16/23 02/16/23 Allergies Allergy/AdvReac Type Severity Reaction Status Date / Time No Known Allergies Allergy Verified 02/13/23 13:30 [facility] Disclaimer: The information contained in this section may have been updated after the patient was seen, as this information can be updated by other users. Medical History Abnormal electrocardiogram [ECG] [EKG] CASTILLO (acute kidney injury) BPH (benign prostatic hyperplasia) Cataract CHF (congestive heart failure) Coronary artery disease Hyperlipidemia Hypertension Paroxysmal atrial fibrillation SDH (subdural hematoma) Surgical History Hip joint replacement status Stented coronary artery Family History Other No significant family history Social History Smoking Status: Former smoker alcohol intake: never current occupational status: other Travel in the last 8 weeks: None ROS Obtained: Yes All systems reviewed & no additional complaints except as documented Physical Exam General General appearance: alert and in no apparent distress Head Head exam: atraumatic, normocephalic and normal inspection Eye Eye exam: Present normal appearance, PERRL and EOMI ENT ENT exam: Present normal exam, normal oropharynx, mucous membranes moist, TM's normal bilaterally and normal external ear exam Neck Neck exam: Present normal inspection, full ROM and trachea midline; Absent meningismus or lymphadenopathy Chest Chest inspection: P
[2023-02-16 13:01] VITALS: BP 152/62; PULSE 68; O2SAT 98
--- NOTE | 2023-02-16 13:11 | PC.NURSE ---
AYDEN MAHER at
[2023-02-16 13:25] VITALS: BP 152/62; PULSE 62; RESP 17; TEMP 36.6; O2SAT 97
--- NOTE | 2023-02-16 14:09 | HMH.EDGENADL ---
Discharge Plan Disposition Patient Disposition: Home, Self-Care Condition: Good Prescriptions Prescriptions: No Action famotidine 20 mg tablet 20 mg PO BID Label Comments: TAKE ONE TABLET BY MOUTH TWICE DAILY tamsulosin 0.4 mg capsule 0.4 mg PO BID Label Comments: TAKE ONE CAPSULE BY MOUTH TWICE DAILY gabapentin 100 mg capsule 100 mg PO BID Label Comments: TAKE ONE CAPSULE BY MOUTH TWICE DAILY MAY CAUSE DROWSINESS rosuvastatin 10 mg tablet 10 mg PO HS Label Comments: TAKE ONE TABLET BY MOUTH EVERY DAY AT BEDTIME fenofibric acid (choline) 135 mg capsule,delayed release(DR/EC) 135 mg PO DAILY Label Comments: TAKE ONE CAPSULE BY MOUTH EVERY DAY amiodarone 200 mg tablet 200 mg PO DAILY Referrals Follow up/Referrals: Trae Lujan MD [Primary Care Provider] - See instructions Activity Restrictions/Add. Instructions Additional Instructions/Restrictions: Continue the amiodarone as prescribed 200 g once daily follow-up tomorrow with your electrician master as scheduled. Clinical Impressions Clinical Impression: Hypertension Discharge ED Provider: Darius Chaney General Adult HPI General Chief complaint: Recheck/Abnormal Lab/Rx Stated complaint: hypertension Time Seen by Provider: 02/16/23 12:51 Mode of Arrival: Ambulatory Source of Information: Patient Limitations: No Limitations Description of Symptoms (Recalled from ER Triage Doc. by RN): pt to the ED after an episode of hypertentionat home. pt reports he was recently taken off his BP medication due to a low heart rate in the office. pt denies any symptoms at this time. pt has an appointment with cardiology tomorrow History of Present Illness HPI narrative: Patient presents with elevated blood pressure. He checked his pressure earlier today and noted to be elevated. He denies any chest pain or shortness of breath. He denies any neurological symptoms. He does take amiodarone for his pressure as well as A-fib. Related Data Home Medications Medication Instructions Recorded Confirmed famotidine 20 mg tablet 20 mg PO BID Acid reflux 02/08/23 02/16/23 gabapentin 100 mg capsule 100 mg PO BID Pain 02/08/23 02/16/23 rosuvastatin 10 mg tablet 10 mg PO HS Cholesterol 02/08/23 02/16/23 tamsulosin 0.4 mg capsule 0.4 mg PO BID Prostate 02/08/23 02/16/23 fenofibric acid (choline) 135 mg 135 mg PO DAILY Cholesterol 02/09/23 02/16/23 capsule,delayed release amiodarone 200 mg tablet 200 mg PO DAILY afib 02/16/23 02/16/23 Allergies Allergy/AdvReac Type Severity Reaction Status Date / Time No Known Allergies Allergy Verified 02/13/23 13:30 [facility] Disclaimer: The information contained in this section may have been updated after the patient was seen, as this information can be updated by other users. Medical History Abnormal electrocardiogram [ECG] [EKG] CASTILLO (acute kidney injury) BPH (benign prostatic hyperplasia) Cataract CHF (congestive heart failure) Coronary artery disease Hyperlipidemia Hypertension Paroxysmal atrial fibrillation SDH (subdural hematoma) Surgical History Hip joint replacement status Stented coronary artery Family History Other No significant family history Social History Smoking Status: Never smoker alcohol intake: never current occupational status: other Travel in the last 8 weeks: None ROS Obtained: Yes All systems reviewed & no additional complaints except as documented Physical Exam General General appearance: alert and in no apparent distress Head Head exam: atraumatic, normocephalic and normal inspection Eye Eye exam: Present normal appearance, PERRL and EOMI ENT ENT exam: Present normal exam, normal oropharynx, mucous membranes moist, TM's n
== END 2023-02-16 13:30 | disposition home or self-care (01) ==
PROVIDERS: Emergency Provider Emergency Medicine; PCP Internal Medicine
DX: I11.0 Hypertensive heart disease with heart failure (principal); I50.9 Heart failure, unspecified; I25.10 Atherosclerotic heart disease of native coronary artery without angina pectoris
CPT/HCPCS: 93005; 99283; 99284

== ENCOUNTER 2023-02-17 12:48 | Day surgery (SDC) | payer MEDICARE, SELFPAY ==
[2023-02-17] VITALS (10 sets, daily range): BP systolic 90–149; BP diastolic 39–78; PULSE 80–89; RESP 15–18; O2SAT 97–99; BMI 27.4
--- NOTE | 2023-02-17 | IR_ITS ---
APPROVED REPORT Patient Location: Outpatient Diamond Saw Operator: LIZZY Alvarez RT (R) PROCEDURES 1. Pocket formation for Permanent Pacemaker Placement. 2. Placement of an atrial sensing and pacing coil into the right atrial appendage. 3. Placement of a ventricular sensing and pacing coil in the right ventricular apex. 4. Permanent Pacemaker Placement. INDICATION Paroxysmal Atrial Fibrilation, Tachy-Gen Syndrome, Sick Sinus Syndrome Informed consent was obtained prior to the procedure. COMPLICATIONS None Estimated Blood Loss: Less than 10 ml TECHNIQUE 1% Lidocaine with epinephrine used to anesthetized the left anterior aspect of the chest. Scalpel was used to make the initial cutaneous incision while electrocautery was used to dissect down tinto the fascia. The fascia was lifted off the pectoralis muscle and digitally manipulated creating a pocket for the pacemaker. The patient was then placed in Trendelenburg position and the subclavian vein was accessed twice via the Selinger technique, there are two wires in the vein. A 6 Scottish sheath was placed under fluoroscopic guidance into the subclavian vein over one of the wires while keeping the other wire in place within the subclavian vein. The dilator was removed from the sheath. Using fluoroscopic guidance, the ventricular lead was placed into the right ventricular apex, screwed and secured into place. Electronic interrogation proved acceptable thresholds and voltage within the lead. Using 3-0 silk, the ventricular lead was then secured into place. Lead was secured to the facia using the 3-0 silk. Following this, the sheath was pealed away. An additional 6 Scottish fresh sheath and dilator was placed over the existing wire. Using fluoroscopic guidance, the atrial lead was the placed into the right atrial appendage and screwed and secured in place. Electrical interrogation demonstrated acceptable thresholds and voltage number. The atrial lead was then secured into place using 3-0 silk. 1 gram of Ancef was used to flush the pocket. Following the pacemaker generator being secured to the fascia and in place, Monocryl was used to close the subcutaneous layers while mony were used to close the cutaneous layer. A pressure dressing was placed and the patient was transferred to the postop holding area in stable condition for postoperative care. INTERROGATION Generator Model number: [id number], Assurity Generator Serial number: [id number] Atrial lead model number: 2088TC/52, St neftali Atrial lead serial number: [id number] P-wave: A-FIB Impedence: 440 ohms Threshold: 1.0V@0.4ms Right Ventricular lead model number: 2088TC/58, St neftali Right Ventricular lead serial number: [id number] R-wave: 12.0mV Impedence: 690 ohms Threshold: 1.0V@0.4ms Pacing Parameters: Mode: DDDR Base/Max Track: 80 ppm / 130 ppm No diaphragmatic stimulation at 10 volts. IMPRESSION 1. Successful pocket formation for Permanent Pacemaker Placement. 2. Successful placement of an atrial sensing and pacing coil into the right atrial appendage. 3. Successful placement of a ventricular sensing and pacing coil in the right ventricular apex. 4. Successful permanent Pacemaker Placement. PLAN 1. Post Op Wound Care Electronically signed by : Ulysses Barcenas MD 02/18/2023 10:03:47
[2023-02-17 13:18] LABS: Basophils # 0.1 K/mm3 (0-0.2); Basophils % 0.7 % (0.1-2.0); Eosinophils # 0.2 K/mm3 (0.0-0.4); Hematocrit 39.7 % (42.0-52.0); Lymphocytes % 12.8 % (10-50); Mean Corpuscular HGB Conc 32.7 g/dL (31.8-35.4); Mean Corpuscular Hemoglobin 27.3 pg (27.0-31.2); Mean Corpuscular Volume 83.4 fl (80-94); Mean Platelet Volume 8.2 fl (7.4-10.4); Monocytes # 0.4 K/mm3 (0.1-1.0); Monocytes % 4.7 % (1.7-9.3); Neutrophils # 6.3 K/mm3 (1.8-7.8); Neutrophils % 78.8 % (37.0-80.0); Platelet Count 208 K/mm3 (142-424); Red Blood Count 4.76 M/mm3 (4.60-6.20); Red Cell Distribution Width 15.1 % (11.5-17.5)
[2023-02-17 13:26] LABS: Chloride 102 mmol/L (98-107)
[2023-02-17 13:27] LABS: Potassium 4.5 mmoL/L (3.5-5.1); Sodium 137 mmol/L (136-145)
[2023-02-17 13:29] LABS: Blood Urea Nitrogen 14 mg/dl (9-20); Creatinine Clearance Estimated 54 mL/min (50-200); Estimated Glomerular Filt Rate 45 ml/min (>60); GFR (African American) 54 ML/MIN (>60)
[2023-02-17 13:30] LABS: Anion Gap 14.5 mEq/L (5-15); Calcium 9.5 mg/dl (8.4-10.2); Carbon Dioxide 25 mmol/L (22.0-30.0); Glucose 106 mg/dl (74-100)
--- NOTE | 2023-02-17 14:37 | XR_ITS ---
FINAL REPORT CLINICAL HISTORY: PACEMAKER COMPARISON: 02/08/2023 FINDINGS: SINGLE-VIEW CHEST The heart size is normal. The mediastinum is normal. New left subclavian pacer is in proper position. Overlying skin mony are present. There are mild chronic changes in both lungs. There is no pneumothorax. IMPRESSION: New subclavian pacer in proper position. Reviewed, Interpreted and Dictated by Donald Wang MD Transcribed by Valeria Kerr Authenticated and [facility]
--- NOTE | 2023-02-17 14:53 | P.PN_ITS ---
[facility] Disclaimer: The information contained in this section may have been updated after the patient was seen, as this information can be updated by other users. Medical History Abnormal electrocardiogram [ECG] [EKG] CASTILLO (acute kidney injury) BPH (benign prostatic hyperplasia) Cataract CHF (congestive heart failure) Coronary artery disease Hyperlipidemia Hypertension Paroxysmal atrial fibrillation SDH (subdural hematoma) Sick sinus syndrome Tachy-kirit syndrome Surgical History Hip joint replacement status Stented coronary artery Family History Other No significant family history Social History (Updated 02/17/23 @ 13:15 by Tammi Del Castillo RN) Smoking Status: Never smoker alcohol intake: never substance use type: denies use current occupational status: other Travel in the last 8 weeks: None [facility] Anesthesia Checklist Patient Identification Patient Identification: Arm Band Structural Data Admitted From: Home Planned Operative Procedure/s: Dual Chamber Pacemaker/Cardioversion Consent for Planned Operative Procedure(s) Verified: Yes Verified Documents: Surgical Consent and History and Physical NPO Status Verified Time NPO: 00:00 Additional verifications Anesthesia Reactions: No Airway Assessment C-Spine Mobility Assessed: Yes TMJ Mobility Assessed: Yes Dentition: Good Dentition Neurological Assessment Level of Consciousness: Awake and Alert Anesthesia Plan Anesthesia Risk discussed: Yes Anesthesia Plan: Verified ASA Class: III Anesthesia Type: MAC
== END 2023-02-17 16:00 | disposition home or self-care (01) ==
PROVIDERS: PCP Internal Medicine; Visit Provider Internal Medicine
DX: I49.5 Sick sinus syndrome (principal); Z79.899 Other long term (current) drug therapy; I48.0 Paroxysmal atrial fibrillation; I25.10 Atherosclerotic heart disease of native coronary artery without angina pectoris; I11.0 Hypertensive heart disease with heart failure; I50.9 Heart failure, unspecified; Z95.5 Presence of coronary angioplasty implant and graft; E78.5 Hyperlipidemia, unspecified
CPT/HCPCS: 33208; 71045; 80048; 85025; C1785; C1898; J0282

== ENCOUNTER → 2023-02-24 06:54 | Outpatient (CLI) | payer MEDICARE, SELFPAY ==
--- NOTE | 2023-02-24 06:54 | NM_ITS ---
APPROVED REPORT Exam: Nuclear Stress Test Indication: CAD, SOB, Abnormal EKG, HTN, High cholesterol Patient Location: Outpatient Stress Tech: Tana Forbes [place] Tech:Anali Bynum, ARRT, RT (R)(N) Ht: 6 ft 2 in Wt: 210 lbs HR: 80 bpm BP: 170/93 mmHg BSA: 2.22 m2 Rhythm: NSR TID: 1.03 BMI: 26.9 History: CAD, SOB, Abnormal EKG, HTN, High cholesterol Procedure: Patient received 0.4 mg of intravenous Lexiscan, resting heart rate 80 bpm, resting blood pressure 170/93 mmHg, with Lexiscan maximum heart rate achieved was 80 bpm which is 57 % of the maximum predicted heart rate and blood pressure was 170/93 mmHg. With Lexiscan, patient denied any complaint of chest pain. The patient developed shortness of air during stress testing. No chest pain. Patient unable to lay in the prone position for those images. Prone stress imaging was not performed. Cardiac Stress and Resting SPECT Images: Cardiac Stress and Resting SPECT images were obtained using technetium 99m Myoview 32.1 mCi stress and 9.73 mCi at rest. This study is limited by inavailability of prone stress imaging. This may limit the study's diagnostic capacity. Resting and stress imaging in supine position demonstrate a large-sized, sever, fixed perfusion defect involving the entire inferior and inferoapical LV region. Gated imaging demonstrates mild global reduction in LV systolic function. There is near-akinesis of the inferior and inferoapical LV hoffman. LVEF is calculated at 43%. Conclusion: This study is limited by inavailability of prone stress imaging. This may limit the study's diagnostic capacity. Large-sized, sever, fixed perfusion defect involving the entire inferior and inferoapical LV region. No evidence of reversible ischemia. Gated imaging demonstrates mild global reduction in LV systolic function. There is near-akinesis of the inferior and inferoapical LV hoffman. LVEF is calculated at 43%. Electronically signed by : Sherie Jj, 02/25/2023 17:24:53
--- NOTE | 2023-02-24 08:36 | HMH.ITSHM ---
Current Home Medications as stated by this patient Alen Luna or customer care representative. []AMIODARONE METOPROLOL FAMOTIDINE ASA FENOFIBRIC GABAPENTIN TAMSULOSIN LISINOPRIL ROSUVASTATIN
--- NOTE | 2023-02-24 09:13 | CA_ITS ---
APPROVED REPORT Exam: Pharmacologic Technologist: Tana Forbes Ht: 6 ft 0 in Wt: 215 lbs BSA: 2.20 m2 HR: 80 bpm BP: 170/93 mmHg Rhythm: Atrial paced rhythm Medical History Medications: Amiodarone,,,,, Gabapentin,,,,, TAMSULOSIN,,,,, Famotidine,,,,, RoSUVASTATIN,,,,, CHOLine,,,,, Stress Test Details Test: LEXISCAN HR Resting HR: 80 bpm Max Heart Rate (APMHR): 140 bpm Max HR Achieved: 80 bpm Target HR (85% APMHR): 119 bpm % of APMHR: 57 Recovery HR: 80 bpm BP Resting BP: 170.0/93.0 mmHg Max BP: 170.0/93.0 mmHg Recovery BP: 153.0/82.0 mmHg ECG Resting ECG: Atrial paced rhythm, inferior and lateral ST-T abnormalities. Stress ECG: No change Arrhythmia: None Recovery ECG: No change Recovery Arrhythmia: None Clinical Exercise duration: 04:00 min Highest Stage Achieved: Exercise capacity: n/a METs Stress ECG Conclusion Symptoms; Shorntess of air. No chest pain. Arrhythmias/Ectopy: None ST-T Changes: No significant changes. Conclusion: Non-diagnostic Lexiscan stress due to baseline abnormalities. Myoview images reported separately. Test Summary REST . . . . . . . Resting REST 07:09 . . 80 . 170/ 93 . . Stage 1 01:00 . . 80 . . . . Stage 2 01:00 . . 80 . 141/ 66 . . Stage 3 01:00 . . 80 . 154/ 75 . . Stage 4 01:00 . . 80 . 152/ 76 . Stop exercise at 04:00 RECOVERY 01:00 . . 80 . . . . RECOVERY 02:00 . . 80 . . . . RECOVERY 03:00 . . 80 . 153/ 82 . . RECOVERY 04:00 . . 80 . 153/ 82 . . RECOVERY 04:03 . . 80 . 153/ 82 . . Electronically signed by : Sherie Jj, 02/25/2023 17:16:49
== END ==
PROVIDERS: PCP Internal Medicine; Visit Provider Nurse Practitioner Family
DX: E78.2 Mixed hyperlipidemia (principal); I25.10 Atherosclerotic heart disease of native coronary artery without angina pectoris; I48.0 Paroxysmal atrial fibrillation; I50.9 Heart failure, unspecified; N28.9 Disorder of kidney and ureter, unspecified; R94.31 Abnormal electrocardiogram [ECG] [EKG]; Z95.5 Presence of coronary angioplasty implant and graft; I11.0 Hypertensive heart disease with heart failure
CPT/HCPCS: 78452; 93017; A9502; J2785

== ENCOUNTER → 2023-03-04 14:47 | Outpatient (CLI) | payer MEDICARE, SELFPAY ==
[2023-03-04 15:31] LABS: Hematocrit 40.3 % (42.0-52.0)
[2023-03-04 15:46] LABS: Chloride 98 mmol/L (98-107); Potassium 4.5 mmoL/L (3.5-5.1); Sodium 137 mmol/L (136-145)
[2023-03-04 15:49] LABS: Anion Gap 15.5 mEq/L (5-15); Blood Urea Nitrogen 31 mg/dl (9-20); Carbon Dioxide 28 mmol/L (22.0-30.0); Estimated Glomerular Filt Rate 29 ml/min (>60); GFR (African American) 35 ML/MIN (>60)
[2023-03-04 15:50] LABS: Calcium 9.4 mg/dl (8.4-10.2); Glucose 85 mg/dl (74-100)
== END ==
PROVIDERS: PCP Internal Medicine; Visit Provider Internal Medicine
DX: I25.10 Atherosclerotic heart disease of native coronary artery without angina pectoris (principal); I10 Essential (primary) hypertension; I49.5 Sick sinus syndrome; I48.0 Paroxysmal atrial fibrillation; Z95.0 Presence of cardiac pacemaker
CPT/HCPCS: 80048; 85014

== ENCOUNTER → 2023-04-01 12:06 | Outpatient (CLI) | payer MEDICARE, SELFPAY ==
[2023-04-01 12:49] LABS: Basophils # 0.1 K/mm3 (0-0.2); Basophils % 0.9 % (0.1-2.0); Eosinophils # 0.3 K/mm3 (0.0-0.4); Eosinophils % 5.9 % (0.1-12.0); Hemoglobin 12.7 g/dL (14.1-18.0); Lymphocytes # 1.4 K/mm3 (0.7-4.5); Mean Corpuscular HGB Conc 32.5 g/dL (31.8-35.4); Mean Corpuscular Hemoglobin 27.5 pg (27.0-31.2); Mean Corpuscular Volume 84.8 fl (80-94); Mean Platelet Volume 9.1 fl (7.4-10.4); Monocytes # 0.4 K/mm3 (0.1-1.0); Monocytes % 7.6 % (1.7-9.3); Neutrophils # 3.5 K/mm3 (1.8-7.8); Neutrophils % 61.6 % (37.0-80.0); Platelet Count 178 K/mm3 (142-424); Red Cell Distribution Width 15.2 % (11.5-17.5); White Blood Count 5.7 K/mm3 (4.8-10.8)
[2023-04-01 13:23] LABS: Alanine Aminotransferase 23 U/L (12-78); Albumin Level 4.3 g/dl (3.5-5.0); Albumin/Globulin Ratio 1.7 (1.1-1.8); Alkaline Phosphatase 31 U/L (38-126); Anion Gap 13.3 mEq/L (5-15); Aspartate Amino Transferase 27 U/L (17-59); Bilirubin,Total 0.4 mg/dl (0.2-1.3); Blood Urea Nitrogen 31 mg/dl (9-20); Calcium 9.3 mg/dl (8.4-10.2); Carbon Dioxide 26 mmol/L (22.0-30.0); Chloride 103 mmol/L (98-107); Cholesterol 143 mg/dl (140-200); Estimated Glomerular Filt Rate 27 ml/min (>60); GFR (African American) 33 ML/MIN (>60); Globulin 2.6 g/dL (1.3-3.2); Glucose 91 mg/dl (74-100); HDL Cholesterol 48 mg/dl (40-60); Potassium 4.3 mmoL/L (3.5-5.1); Sodium 138 mmol/L (136-145); Total Protein,Serum 6.9 g/dl (6.3-8.2); Triglycerides 163 mg/dl (30-150); VLDL Cholesterol 33 mg/dL (0-40)
[2023-04-01 13:31] LABS: Erythrocyte Sedimentation Rate 14 mm/hr (0-20)
== END ==
PROVIDERS: PCP Internal Medicine; Visit Provider Internal Medicine
DX: I95.1 Orthostatic hypotension (principal); I25.10 Atherosclerotic heart disease of native coronary artery without angina pectoris; I48.91 Unspecified atrial fibrillation; E78.5 Hyperlipidemia, unspecified; G60.9 Hereditary and idiopathic neuropathy, unspecified; N17.1 Acute kidney failure with acute cortical necrosis
CPT/HCPCS: 80053; 80061; 85025; 85651

== ENCOUNTER → 2023-04-13 07:43 | Outpatient (CLI) | payer MEDICARE, SELFPAY ==
--- NOTE | 2023-04-13 07:49 | US_ITS ---
FINAL REPORT CLINICAL HISTORY: ELEVATED KIDNEY FUNCTION COMPARISON: None FINDINGS: RENAL ULTRASOUND Ultrasound images of the kidneys were obtained. There is incidental note made of fatty infiltration of the liver. The right kidney measures 12.3 cm in length. There is no hydronephrosis, cortical thinning, or mass. The left kidney measures 12.7 cm in length. There is no hydronephrosis, cortical thinning, or mass. IMPRESSION: Normal renal ultrasound. Fatty liver. Reviewed, Interpreted and Dictated by Juan C Gamez MD Transcribed by Billie Spann Authenticated and [facility]
--- NOTE | 2023-04-13 07:49 | US_ITS ---
FINAL REPORT CLINICAL HISTORY: ELEVATED KIDNEY FUNCTION COMPARISON: None FINDINGS: ULTRASOUND BLADDER WITH POST VOID RESIDUAL Bladder volumes were estimated based on 3 dimensional measurements, pre- and postvoid. Prevoid imaging demonstrates minimal distention. There is borderline elevation of postvoid residual of 30 mL. Lobulation indenting the bladder base is likely due to enlarged prostate. IMPRESSION: Borderline elevation postvoid residual. Enlarged prostate. Reviewed, Interpreted and Dictated by Juan C Gamez MD Transcribed by Billie Spann Authenticated and [facility]
== END ==
PROVIDERS: PCP Internal Medicine; Visit Provider Internal Medicine
DX: R94.4 Abnormal results of kidney function studies (principal)
CPT/HCPCS: 76770; 76857

== ENCOUNTER 2023-11-03 11:51 | Outpatient (POV) | payer MEDICARE, SELFPAY | END 2023-11-03 23:59 | disposition home or self-care (01) | LOC: SC 11:52 | PROVIDERS: PCP Internal Medicine; Visit Provider Dermatology | DX: Z00.00 Encounter for general adult medical examination without abnormal findings (principal) ==

== ENCOUNTER 2023-12-02 10:31 | Outpatient (CLI) | payer MEDICARE, SELFPAY ==
--- NOTE | 2023-12-02 10:48 | XR_ITS ---
FINAL REPORT CLINICAL HISTORY: on amio COMPARISON: 02/17/2023 FINDINGS: Two views of the chest were obtained. A left subclavian pacer is once again identified. The heart size and pulmonary vascularity are within normal limits. The mediastinum is normal. There is mild right base atelectasis versus scar. There is no pneumothorax. The bony thorax is intact. IMPRESSION: Mild right base atelectasis versus scar, otherwise no active chest disease. Reviewed, Interpreted and Dictated by Rai Maldonado III, MD Transcribed by Stephanie Munoz Authenticated and [facility]
[2023-12-02 10:54] LABS: Basophils # 0.1 K/mm3 (0-0.2); Basophils % 1.5 % (0.1-2.0); Eosinophils # 0.2 K/mm3 (0.0-0.4); Eosinophils % 3.5 % (0.1-12.0); Hemoglobin 10.1 g/dL (14.1-18.0); Lymphocytes # 1.2 K/mm3 (0.7-4.5); Lymphocytes % 22.6 % (10-50); Mean Corpuscular HGB Conc 31.5 g/dL (31.8-35.4); Mean Corpuscular Hemoglobin 25.8 pg (27.0-31.2); Mean Corpuscular Volume 81.8 fl (80-94); Mean Platelet Volume 9.4 fl (7.4-10.4); Monocytes # 0.5 K/mm3 (0.1-1.0); Monocytes % 8.5 % (1.7-9.3); Neutrophils # 3.4 K/mm3 (1.8-7.8); Neutrophils % 63.9 % (37.0-80.0); Platelet Count 214 K/mm3 (142-424); Red Blood Count 3.92 M/mm3 (4.60-6.20); Red Cell Distribution Width 15.7 % (11.5-17.5); White Blood Count 5.4 K/mm3 (4.8-10.8)
[2023-12-02 11:23] LABS: Chloride 106 mmol/L (98-107); Sodium 138 mmol/L (136-145)
[2023-12-02 11:25] LABS: Blood Urea Nitrogen 23 mg/dl (9-20); Estimated Glomerular Filt Rate 39 ml/min (>60); GFR (African American) 47 ML/MIN (>60)
[2023-12-02 11:26] LABS: Alanine Aminotransferase 35 U/L (12-78); Albumin Level 3.9 g/dl (3.5-5.0); Alkaline Phosphatase 42 U/L (38-126); Aspartate Amino Transferase 46 U/L (17-59); Bilirubin,Direct 0.4 mg/dl (0.0-0.4); Bilirubin,Total 0.4 mg/dl (0.2-1.3); Calcium 8.7 mg/dl (8.4-10.2); Carbon Dioxide 26 mmol/L (22.0-30.0); Cholesterol 150 mg/dl (140-200); Glucose 108 mg/dl (74-100); Total Protein,Serum 6.4 g/dl (6.3-8.2); Triglycerides 120 mg/dl (30-150); VLDL Cholesterol 24 mg/dL (0-40)
[2023-12-02 11:27] LABS: Chol/HDL Ratio 3.1 (1-3.5); HDL Cholesterol 48 mg/dl (40-60)
[2023-12-02 11:37] LABS: Direct LDL Cholesterol 77.47 mg/dL (100-129)
[2023-12-02 11:47] LABS: Triiodothryronine (T3) Uptake 36 % (23.5-40.5)
[2023-12-02 11:48] LABS: Free Thyroxine Index 3.5 ug/dL (5.93-13.13); T4 (Thyroxine) 9.6 ug/dl (5.53-11.0)
[2023-12-02 12:02] LABS: Thyroid Stimulating Hormone 1.75 uIU/mL (0.465-4.68)
== END 2023-12-02 23:59 ==
LOC: LAB 10:32
PROVIDERS: PCP Internal Medicine; Visit Provider Nurse Practitioner Family
DX: I50.9 Heart failure, unspecified; Z95.5 Presence of coronary angioplasty implant and graft; I25.10 Atherosclerotic heart disease of native coronary artery without angina pectoris; I48.0 Paroxysmal atrial fibrillation; Z79.899 Other long term (current) drug therapy; R94.31 Abnormal electrocardiogram [ECG] [EKG]
CPT/HCPCS: 36415; 71046; 80048; 80061; 80076; 84436; 84443; 84479; 85025

== ENCOUNTER 2023-12-28 12:23 | Outpatient (CLI) | payer MEDICARE, SELFPAY ==
[2023-12-28 13:45] LABS: Basophils # 0.1 K/mm3 (0-0.2); Basophils % 1.3 % (0.1-2.0); Eosinophils # 0.3 K/mm3 (0.0-0.4); Eosinophils % 5.1 % (0.1-12.0); Hemoglobin 7.6 g/dL (14.1-18.0); Lymphocytes # 1.1 K/mm3 (0.7-4.5); Mean Corpuscular HGB Conc 29.9 g/dL (31.8-35.4); Mean Corpuscular Hemoglobin 23.5 pg (27.0-31.2); Mean Corpuscular Volume 78.5 fl (80-94); Mean Platelet Volume 9.3 fl (7.4-10.4); Monocytes # 0.3 K/mm3 (0.1-1.0); Neutrophils # 3.7 K/mm3 (1.8-7.8); Neutrophils % 67.5 % (37.0-80.0); Platelet Count 222 K/mm3 (142-424); Red Blood Count 3.25 M/mm3 (4.60-6.20); White Blood Count 5.4 K/mm3 (4.8-10.8)
[2023-12-28 13:58] LABS: Hematocrit 25.6 % (42.0-52.0)
[2023-12-28 14:21] LABS: Anion Gap 10.9 mEq/L (5-15); Blood Urea Nitrogen 20 mg/dl (9-20); Calcium 8.8 mg/dl (8.4-10.2); Carbon Dioxide 25 mmol/L (22.0-30.0); Chloride 107 mmol/L (98-107); Estimated Glomerular Filt Rate 36 ml/min (>60); GFR (African American) 44 ML/MIN (>60); Glucose 97 mg/dl (74-100); Potassium 3.9 mmoL/L (3.5-5.1); Sodium 139 mmol/L (136-145)
[2023-12-28 14:37] LABS: Free T4 (Free Thyroxine) 1.62 ng/dl (0.78-2.19)
[2023-12-28 14:51] LABS: Thyroid Stimulating Hormone 1.67 uIU/mL (0.465-4.68)
[2023-12-28 17:29] LABS: Iron 29 ug/dL (49-181)
[2023-12-28 17:38] LABS: Total Iron Binding Capacity 457 ug/dL (261-462)
[2023-12-28 18:05] LABS: Ferritin 6.37 ng/ml (17.9-464)
== END 2023-12-28 23:59 ==
PROVIDERS: PCP Internal Medicine; Visit Provider Nurse Practitioner
DX: R53.83 Other fatigue (principal); D64.9 Anemia, unspecified
CPT/HCPCS: 36415; 80048; 82728; 83540; 83550; 84439; 84443; 85025

== ENCOUNTER 2023-12-28 15:38 | Observation (INO) | payer MEDICARE, SELFPAY ==
[2023-12-28 15:40] VITALS: BP 146/66; PULSE 73; RESP 18; TEMP 36.7; O2SAT 99; BMI 27.6
--- NOTE | 2023-12-28 15:51 | ECG_ITS ---
APPROVED REPORT Exam: Resting ECG HR:72 bpm ECG Measurements Heart Rate 72 AXES WV 255 P 162 QRSd 151 QRS 69 QT 500 T 42 QTc 524 Conclusion ELECTRONIC ATRIAL PACEMAKER RIGHT BUNDLE BRANCH BLOCK [120+ ms QRS DURATION, UPRIGHT V1, 40+ ms S IN I/aVL/V4/V5/V6] ABNORMAL ECG UNCONFIRMED REPORT Electronically signed by : Jayson Lambert, 12/28/2023 22:35:15
--- NOTE | 2023-12-28 15:54 | PC.NURSE ---
DR SEGURA AT BEDSIDE
--- NOTE | 2023-12-28 16:05 | XR_ITS ---
FINAL REPORT CLINICAL HISTORY: dyspnea COMPARISON: 12/02/2023 FINDINGS: A single portable view of the chest was obtained. There is cardiomegaly. A left subclavian pacemaker is present. There are worsening bibasilar opacities which may represent atelectasis or pneumonia. There is no pneumothorax. IMPRESSION: Worsening bibasilar opacities may represent atelectasis or pneumonia. Reviewed, Interpreted and Dictated by Rai Maldonado III, MD Transcribed by Lucila Diana Authenticated and [facility]
--- NOTE | 2023-12-28 16:08 | ED_ITS ---
Discharge Plan Disposition Patient Disposition: Admitted Clinical Impressions Clinical Impression: Acute anemia, GI bleed Discharge ED Provider: Jazlyn Lambert General Adult HPI General Chief complaint: Recheck/Abnormal Lab/Rx Stated complaint: arsen sent for blood work Time Seen by Provider: 12/28/23 15:42 Mode of Arrival: Ambulatory Source of Information: Patient Limitations: No Limitations Description of Symptoms (Recalled from ER Triage Doc. by RN): Patient states he is just following orders and came to the ER. States he was being seen in cardiology for increased shortness of air for 2-3 weeks now. No complaints at this time. Per cardiology they checked labs and he had a low h&h. History of Present Illness HPI narrative: Patient is an 83-year-old male presenting today with acute anemia. States that he has had dyspnea for several weeks is on Eliquis for atrial fibrillation and had outpatient labs today performed which showed low H&H with a hemoglobin of 7.6. This is significantly lower than his baseline. States he did have some dark-colored stool several weeks ago but has not had any melena definitively especially over the last several weeks. Denies any currently. Denies any pain in any location. No chest pain is asymptomatic at rest. No lower extremity swelling no history of heart failure or MIs. Denies any fevers night sweats weight loss etc. No history of ulcers or GI bleeds. Related Data Home Medications Medication Instructions Recorded Confirmed famotidine 20 mg tablet 20 mg PO BID Acid reflux 02/08/23 12/28/23 gabapentin 100 mg capsule 100 mg PO BID Pain 02/08/23 12/28/23 rosuvastatin 10 mg tablet 10 mg PO HS Cholesterol 02/08/23 12/28/23 tamsulosin 0.4 mg capsule 0.4 mg PO BID Prostate 02/08/23 12/28/23 fenofibric acid (choline) 135 mg 135 mg PO DAILY Cholesterol 02/09/23 12/28/23 capsule,delayed release apixaban 5 mg tablet (Eliquis) 5 mg PO BID 12/28/23 12/28/23 Previous Rx's Medication Instructions Recorded lisinopril 20 1 tab PO DAILY #90 tabs 08/26/23 mg-hydrochlorothiazide 12.5 mg tablet metoprolol succinate 100 mg 100 mg PO HS #90 tabs 09/08/23 tablet,extended release 24 hr amiodarone 200 mg tablet 200 mg PO DAILY #30 tabs 12/01/23 Allergies Allergy/AdvReac Type Severity Reaction Status Date / Time No Known Allergies Allergy Verified 12/28/23 11:41 [facility] Disclaimer: The information contained in this section may have been updated after the patient was seen, as this information can be updated by other users. Medical History Anemia Tinnitus Hearing loss Sick sinus syndrome Tachy-kirit syndrome Abnormal electrocardiogram [ECG] [EKG] Hyperlipidemia Coronary artery disease Paroxysmal atrial fibrillation SDH (subdural hematoma) Cataract BPH (benign prostatic hyperplasia) Hypertension [place]O (acute kidney injury) CHF (congestive heart failure) Surgical History Hip joint replacement status Stented coronary artery Family History Other No significant family history Social History Smoking Status: Unknown if ever smoked alcohol intake: never substance use type: denies use current occupational status: retired and other Travel in the last 8 weeks: None ROS Obtained: Yes All systems reviewed & no additional complaints except as documented Physical Exam General General appearance: alert and in no apparent distress Respiratory Respiratory exam: Present normal lung sounds bilaterally; Absent respiratory distress Cardiovascular Cardiovascular exam: Present regular rate and normal rhythm Abdominal Exam Abdominal exam: Present soft; Absent distention or tenderness Rectal Exam Rectal exam: Present other (Brown stool sent to be developed to the lab for heme no definitive melena) Extremities Exam Extremities exam: Present normal inspection and full ROM Neurological Exam Neurological exam: Present alert and oriented X3 Medical Decision Making Carlos Inquiry Pt receiving controlled substance: No Vital Signs: 12/28/23 15:40 Temperature 98.0 F Temperature Source Oral Pulse Rate [Radial] 73 Respiratory Rate 18 Blood Pressure [Right Arm] 146/66 H Blood Pressure Mean [Right Arm] 92 Blood Pressure Source [Right Arm] Automatic Cuff Blood Pressure Position [Right Arm] Sitting 02 Sat by Pulse Oximetry 99 Oxygen Delivery Method Room Air Lab Data Lab results reviewed: Yes I reviewed the patient's lab results. Lab Results 12/28/23 15:45: WBC 6.6, RBC 3.22 L, Hgb 7.8 L, Hct 25.0 L, MCV 77.6 L, MCH 24.2 L, MCHC 31.2 L, RDW 15.9, Plt Count 230, MPV 9.5, Neut % (Auto) 64.8, Lymph % (Auto) 21.7, [place] % (Auto) 7.1, Eos % (Auto) 5.5, Baso % (Auto) 0.8, Neut # (Auto) 4.3, Lymph # (Auto) 1.4, [place] # (Auto) 0.5, Eos # (Auto) 0.4, Baso # (Auto) 0.1, PT 12.0, INR 1.12 H, APTT 25.1, D-Dimer 0.30, Sodium 139, Potassium 3.7, Chloride 107, Carbon Dioxide 26, Anion Gap 9.7, BUN 20, Creatinine 2.00 H, Estimated Creat Clear 40, Estimated GFR 32 L, Est GFR ( Amer) 39 L, G lucose 122 H D, Calcium 8.8, Total Bilirubin 0.4, AST 39, ALT 29, Alkaline Phosphatase 43, Troponin I < 0.01, NT-Pro-B Natriuret Pep 1880 H, Total Protein 6.6, Albumin 4.1, Globulin 2.5, Albumin/Globulin Ratio 1.6 12/28/23 15:55: Stool Occult Blood Positive A 12/28/23 15:45 12/28/23 15:45 Orders (Tests/Meds): ORDERS Category Date Time Status Type and Screen Stat BBK 12/28/23 16:08 Received CXR --portable [XR chest portable] Stat Exams 12/28/23 16:05 Taken BNP [NT Pro Brain Natriuretic Pep.] Stat Lab 12/28/23 15:45 Completed CBC w/Auto Diff [Complete Blood Count Auto Diff] Stat Lab 12/28/23 15:45 Completed CMP [Comprehensive Metabolic Panel] Stat Lab 12/28/23 15:45 Completed D-Dimer Stat Lab 12/28/23 15:45 Completed Occult Blood,Stool Stat Lab 12/28/23 15:55 Completed PT/PTT Stat Lab 12/28/23 15:45 Completed Trop I [Troponin I] Stat Lab 12/28/23 15:45 Completed Troponin I Q3H Lab 12/28/23 19:15 Ordered Troponin I Q3H Lab 12/28/23 22:15 Ordered ECG Data Tracing #1: I reviewed this ECG and interpreted as documented below: Ventricular rate of 72 electronic atrial pacemaker there is a right bundle branch block no acute ischemic changes noted no ventricular pacing normal axis Medical Decision Narrative: 83-year-old male presenting today with acute anemia. Rectal exam demonstrated brown stool was sent for heme development. Sounds as if it is possible that he had a recent GI bleed several weeks ago. He is on Eliquis for atrial fibrillation. Differential is broad in the setting of acute anemia. He has no other signs or symptoms of blood loss. Will reassess after his initial workup is complete. Reassessment 454 patient remains very stable his heme from his stool was in fact positive. This suggest that this is a gastrointestinal source. He did have dark stool but never had melena and certainly does not have any melena at this point so this is most likely an upper gastrointestinal bleed but cannot rule out an insidious lower gastrointestinal bleed such as in the case of malignancy. Given the fact that this has happened relatively quickly over the last several weeks I favor slow bleeding upper gastrointestinal bleed. No emergent indication for intervention at this exact moment but given the fact that he is on Eliquis and has a significant drop in his hemoglobin we will keep him for evaluation and consultation tomorrow with her surgeon. I spoke with Dr. Peterson he is agreeable to this plan patient was admitted in stable condition. His hemoglobin is above 7 will not transfuse at the moment. Type and screen has been sent however. Critical Care Critical Care Time Critical Care Time: Yes Attestation: On 12/28/23, the high probability of a clinically significant, sudden or life threatening deterioration of the following system(s) required my full and direct attention, intervention and personal management. The time I documented below is in addition to time spent performing reported procedures but includes the following listed in this critical care notation. Total Time Total Critical Care Time: 35
[2023-12-28 16:17] LABS: Basophils # 0.1 K/mm3 (0-0.2); Basophils % 0.8 % (0.1-2.0); Eosinophils # 0.4 K/mm3 (0.0-0.4); Eosinophils % 5.5 % (0.1-12.0); Hemoglobin 7.8 g/dL (14.1-18.0); Lymphocytes # 1.4 K/mm3 (0.7-4.5); Lymphocytes % 21.7 % (10-50); Mean Corpuscular HGB Conc 31.2 g/dL (31.8-35.4); Mean Corpuscular Hemoglobin 24.2 pg (27.0-31.2); Mean Corpuscular Volume 77.6 fl (80-94); Mean Platelet Volume 9.5 fl (7.4-10.4); Monocytes # 0.5 K/mm3 (0.1-1.0); Monocytes % 7.1 % (1.7-9.3); Neutrophils # 4.3 K/mm3 (1.8-7.8); Neutrophils % 64.8 % (37.0-80.0); Platelet Count 230 K/mm3 (142-424); Red Blood Count 3.22 M/mm3 (4.60-6.20); Red Cell Distribution Width 15.9 % (11.5-17.5); White Blood Count 6.6 K/mm3 (4.8-10.8)
[2023-12-28 16:18] LABS: Occult Blood,Stool Positive (Negative)
[2023-12-28 16:22] LABS: Chloride 107 mmol/L (98-107); Sodium 139 mmol/L (136-145)
[2023-12-28 16:23] LABS: Potassium 3.7 mmoL/L (3.5-5.1)
[2023-12-28 16:24] LABS: Activated Partial Thrombo Time 25.1 seconds (22.8-30.6); INR 1.12 (0.9-1.1)
[2023-12-28 16:25] LABS: Alanine Aminotransferase 29 U/L (12-78); Albumin Level 4.1 g/dl (3.5-5.0); Alkaline Phosphatase 43 U/L (38-126); Anion Gap 9.7 mEq/L (5-15); Aspartate Amino Transferase 39 U/L (17-59); Bilirubin,Total 0.4 mg/dl (0.2-1.3); Blood Urea Nitrogen 20 mg/dl (9-20); Carbon Dioxide 26 mmol/L (22.0-30.0); Creatinine Clearance Estimated 40 mL/min (50-200); Estimated Glomerular Filt Rate 32 ml/min (>60); GFR (African American) 39 ML/MIN (>60)
[2023-12-28 16:26] LABS: Albumin/Globulin Ratio 1.6 (1.1-1.8); Calcium 8.8 mg/dl (8.4-10.2); Globulin 2.5 g/dL (1.3-3.2); Glucose 122 mg/dl (74-100); Total Protein,Serum 6.6 g/dl (6.3-8.2)
[2023-12-28 16:36] LABS: NT Pro Brain Natriuretic Pep. 1880 pg/mL (0-450)
[2023-12-28 16:41] LABS: Troponin I < 0.01 ng/ml (0.00-0.034)
--- NOTE | 2023-12-28 16:43 | PC.NURSE ---
DR SEGURA SPEAKING WITH HOSPITALIST
--- NOTE | 2023-12-28 16:46 | PC.NURSE ---
P[facility]ER NOTIFIED OF ADMISSION
--- NOTE | 2023-12-28 16:46 | PC.NURSE ---
called for admission, assigned to room 202.
--- NOTE | 2023-12-28 16:56 | PC.NURSE ---
REPORT CALLED TO ALEJANDRA DESAI
[2023-12-28 17:03] VITALS: BP 146/66; PULSE 73; RESP 18; TEMP 36.7; O2SAT 99
--- NOTE | 2023-12-28 17:05 | PC.NURSE ---
arrived by w/c from ED
[2023-12-28 17:20] VITALS: BP 160/79; PULSE 72; RESP 20; TEMP 36.8; O2SAT 96; BMI 27.5
--- NOTE | 2023-12-28 17:26 | EXP.SURG.CON ---
History of Present Illness *Admission Date: 12/28/23 *Reason for visit:: Anemia *History of present illness: Patient is an 83-year-old male with history of hypertension, renal insufficiency, sick sinus syndrome, pacemaker placement, congestive heart failure, coronary artery disease with stenting, history of paroxysmal atrial fibrillation. He was recently placed on Eliquis by cardiology in [place]. Patient has recently been diagnosed with anemia and has a pending consultation with Dr. Contreras. He was being seen in cardiology clinic today for progressive shortness of air. He states that this has been ongoing for at least weeks if not months. Underwent blood work which revealed a hemoglobin of 7.6. He was sent to the emergency department. Patient states that several weeks ago he had some dark stools but has not had any symptoms consistent with hematochezia or melena recently. Patient was evaluated in the emergency department and plan was for admission with surgical consultation tomorrow. Surgical consultation was ordered for this evening. [facility] Disclaimer: The information contained in this section may have been updated after the patient was seen, as this information can be updated by other users. Medical History (Updated 12/28/23 @ 17:04 by Sue Murillo RN) GERD (gastroesophageal reflux disease) Anemia Tinnitus Hearing loss Sick sinus syndrome Tachy-kirit syndrome Abnormal electrocardiogram [ECG] [EKG] Hyperlipidemia Coronary artery disease Paroxysmal atrial fibrillation SDH (subdural hematoma) Cataract BPH (benign prostatic hyperplasia) Hypertension [place] (acute kidney injury) CHF (congestive heart failure) Surgical History Hip joint replacement status Stented coronary artery Family History Other No significant family history Social History (Updated 12/28/23 @ 16:55 by Katerina Quevedo RN) Smoking Status: Unknown if ever smoked alcohol intake: never substance use type: denies use current occupational status: retired and other Travel in the last 8 weeks: None Meds Home Medications and Allergies Home Medications Medication Instructions Recorded Confirmed Type famotidine 20 mg tablet 20 mg PO BID Acid reflux 02/08/23 12/28/23 History gabapentin 100 mg capsule 100 mg PO BID Pain 02/08/23 12/28/23 History rosuvastatin 10 mg tablet 10 mg PO HS Cholesterol 02/08/23 12/28/23 History tamsulosin 0.4 mg capsule 0.4 mg PO BID Prostate 02/08/23 12/28/23 History fenofibric acid (choline) 135 mg 135 mg PO DAILY Cholesterol 02/09/23 12/28/23 History capsule,delayed release amiodarone 200 mg tablet 200 mg PO DAILY #30 tabs 12/01/23 12/28/23 Rx apixaban 5 mg tablet (Eliquis) 5 mg PO BID 12/28/23 12/28/23 History lisinopril 20 0.5 tab PO DAILY bp 12/28/23 12/28/23 History mg-hydrochlorothiazide 12.5 mg tablet metoprolol succinate 100 mg 100 mg PO HS hr 12/28/23 12/28/23 History tablet,extended release 24 hr New Prescriptions to Start Prescriptions: Allergies Allergy/AdvReac Type Severity Reaction Status Date / Time No Known Allergies Allergy Verified 12/28/23 11:41 Exam (Inpt) Vital signs and Labs for Last 24 Hours: Temp Pulse Resp BP Pulse Ox O2 Del Method 98.2 F 72 20 160/79 H 96 Room Air 12/28/23 17:20 12/28/23 17:20 12/28/23 17:20 12/28/23 17:20 12/28/23 17:20 12/28/23 17:20 Laboratory Results - last 24 hr 12/28/23 15:45: WBC 6.6, RBC 3.22 L, Hgb 7.8 L, Hct 25.0 L, MCV 77.6 L, MCH 24.2 L, MCHC 31.2 L, RDW 15.9, Plt Count 230, MPV 9.5, Neut % (Auto) 64.8, Lymph % (Auto) 21.7, [place] % (Auto) 7.1, Eos % (Auto) 5.5, Baso % (Auto) 0.8, Neut # (Auto) 4.3, Lymph # (Auto) 1.4, [place] # (Auto) 0.5, Eos # (Auto) 0.4, Baso # (Auto) 0.1, PT 12.0, INR 1.12 H, APTT 25.1, D-Dimer 0.30, Sodium 139, Potassium 3.7, Chloride 107, Carbon Dioxide 26, Anion Gap 9.7, BUN 20, Creatinine 2.00 H, Estimated Creat Clear 40, Estimated GFR 32 L, Est GFR ( Amer) 39 L, Glucose 122 H D, Calcium 8.8, Total Bilirubin 0.4, AST 39, ALT 29, Alkaline Phosphatase 43, Troponin I < 0.01, NT-Pro-B Natriuret Pep 1880 H, Total Protein 6.6, Albumin 4.1, Globulin 2.5, Albumin/Globulin Ratio 1.6 12/28/23 15:55: Stool Occult Blood Positive A 12/28/23 16:08: Blood Type A Positive, Antibody Screen Negative I & O for Labs for Last 24 Hours: Intake & Output 12/26/23 12/27/23 12/28/23 12/29/23 11:59 11:59 11:59 11:59 Weight 214 lb 5 oz Constitutional: no acute distress Head: Present normocephalic Respiratory: Present CTA bilaterally Results Labs 12/28/23 15:45 12/28/23 15:45 Labs: Laboratory Results - last 24 hr 12/28/23 15:45: WBC 6.6, RBC 3.22 L, Hgb 7.8 L, Hct 25.0 L, MCV 77.6 L, MCH 24.2 L, MCHC 31.2 L, RDW 15.9, Plt Count 230, MPV 9.5, Neut % (Auto) 64.8, Lymph % (Auto) 21.7, [place] % (Auto) 7.1, Eos % (Auto) 5.5, Baso % (Auto) 0.8, Neut # (Auto) 4.3, Lymph # (Auto) 1.4, [place] # (Auto) 0.5, Eos # (Auto) 0.4, Baso # (Auto) 0.1, PT 12.0, INR 1.12 H, APTT 25.1, D-Dimer 0.30, Sodium 139, Potassium 3.7, Chloride 107, Carbon Dioxide 26, Anion Gap 9.7, BUN 20, Creatinine 2.00 H, Estimated Creat Clear 40, Estimated GFR 32 L, Est GFR ( Amer) 39 L, Glucose 122 H D, Calcium 8.8, Total Bilirubin 0.4, AST 39, ALT 29, Alkaline Phosphatase 43, Troponin I < 0.01, NT-Pro-B Natriuret Pep 1880 H, Total Protein 6.6, Albumin 4.1, Globulin 2.5, Albumin/Globulin Ratio 1.6 12/28/23 15:55: Stool Occult Blood Positive A 12/28/23 16:08: Blood Type A Positive, Antibody Screen Negative Assessment and Plan *Assessment and plan (1) Acute anemia: Status: Acute Category: Medical Code(s): D64.9 - Anemia, unspecified Plan Possible EGD tomorrow
[2023-12-28] MEDS: LACTATED RINGERS 1000ML 1,000 ML 50 ML IV (17:38)
--- NOTE | 2023-12-28 17:50 | P.HP_ITS ---
History of Present Illness *Admission Date: 12/28/23 *Reason for visit:: GIB *History of present illness: Patient is a 83-year-old male with past medical history of paroxysmal atrial fibrillation on Eliquis, CAD, CHF, hyperlipidemia, hypertension, CKD stage IV, iron deficiency who presents to the hospital due to abnormal blood work performed by PCP. According the patient he has been feeling fatigued tired having exertional shortness of breath. Patient mentions he has noticed black ta rry stools for past few days, he has been on Eliquis for his atrial fibrillation. Patient was sent to the hospital for further evaluation. Patient denied bright bleeding per rectum. Patient denied chest pain shortness of breath nausea vomiting diarrhea constipation dysuria fevers and chills. [facility] Disclaimer: The information contained in this section may have been updated after the patient was seen, as this information can be updated by other users. Medical History (Updated 12/28/23 @ 17:04 by Sue Murillo RN) GERD (gastroesophageal reflux disease) Anemia Tinnitus Hearing loss Sick sinus syndrome Tachy-kirit syndrome Abnormal electrocardiogram [ECG] [EKG] Hyperlipidemia Coronary artery disease Paroxysmal atrial fibrillation SDH (subdural hematoma) Cataract BPH (benign prostatic hyperplasia) Hypertension [place] (acute kidney injury) CHF (congestive heart failure) Surgical History Hip joint replacement status Stented coronary artery Family History Other No significant family history Social History (Updated 12/28/23 @ 16:55 by Katerina Quevedo RN) Smoking Status: Unknown if ever smoked alcohol intake: never substance use type: denies use current occupational status: retired and other Travel in the last 8 weeks: None Review of Systems Review of Systems Review of systems:: pertinent systems reviewed and negative unless documented below Meds Home Medications and Allergies Home Medications Medication Instructions Recorded Confirmed Type famotidine 20 mg tablet 20 mg PO BID Acid reflux 02/08/23 12/28/23 History gabapentin 100 mg capsule 100 mg PO BID Pain 02/08/23 12/28/23 History rosuvastatin 10 mg tablet 10 mg PO HS Cholesterol 02/08/23 12/28/23 History tamsulosin 0.4 mg capsule 0.4 mg PO BID Prostate 02/08/23 12/28/23 History fenofibric acid (choline) 135 mg 135 mg PO DAILY Cholesterol 02/09/23 12/28/23 History capsule,delayed release amiodarone 200 mg tablet 200 mg PO DAILY #30 tabs 12/01/23 12/28/23 Rx apixaban 5 mg tablet (Eliquis) 5 mg PO BID 12/28/23 12/28/23 History lisinopril 20 0.5 tab PO DAILY bp 12/28/23 12/28/23 History mg-hydrochlorothiazide 12.5 mg tablet metoprolol succinate 100 mg 100 mg PO HS hr 12/28/23 12/28/23 History tablet,extended release 24 hr New Prescriptions to Start Prescriptions: Allergies Allergy/AdvReac Type Severity Reaction Status Date / Time No Known Allergies Allergy Verified 12/28/23 11:41 Exam Data for Last 24 hours Vital signs and Labs for Last 24 Hours: Temp Pulse Resp BP Pulse Ox O2 Del Method 98.2 F 72 20 160/79 H 96 Room Air 12/28/23 17:20 12/28/23 17:20 12/28/23 17:20 12/28/23 17:20 12/28/23 17:20 12/28/23 17:20 Laboratory Results - last 24 hr 12/28/23 15:45: WBC 6.6, RBC 3.22 L, Hgb 7.8 L, Hct 25.0 L, MCV 77.6 L, MCH 24.2 L, MCHC 31.2 L, RDW 15.9, Plt Count 230, MPV 9.5, Neut % (Auto) 64.8, Lymph % (Auto) 21.7, [place] % (Auto) 7.1, Eos % (Auto) 5.5, Baso % (Auto) 0.8, Neut # (Auto) 4.3, Lymph # (Auto) 1.4, [place] # (Auto) 0.5, Eos # (Auto) 0.4, Baso # (Auto) 0.1, PT 12.0, INR 1.12 H, APTT 25.1, D-Dimer 0.30, Sodium 139, Potassium 3.7, Chloride 107, Carbon Dioxide 26, Anion Gap 9.7, BUN 20, Creatinine 2.00 H, Estimated Creat Clear 40, Estimated GFR 32 L, Est GFR ( Amer) 39 L, Glucose 122 H D, Calcium 8.8, Total Bilirubin 0.4, AST 39, ALT 29, Alkaline Phosphatase 43, Troponin I < 0.01, NT-Pro-B Natriuret Pep 1880 H, Total Protein 6.6, Albumin 4.1, Globulin 2.5, Albumin/Globulin Ratio 1.6 12/28/23 15:55: Stool Occult Blood Positive A 12/28/23 16:08: Blood Type A Positive, Antibody Screen Negative I & O for Last 24 hours: Intake & Output 12/25/23 12/26/23 12/27/23 12/28/23 23:59 23:59 23:59 23:59 Weight 97.211 kg Constitutional Constitutional: no acute distress *Routine HEENT Exam Head: Present normocephalic Eye: Present EOMI and PERRL ENT: Present mucous membranes moist *Routine Neck Exam Neck: Present supple; Absent lymphadenopathy *Routine Respiratory Exam Respiratory: Present CTA bilaterally *Routine Cardiovascular Exam Cardiovascular: Present RRR *Routine Abdominal Exam Abdominal: Present soft and normoactive bowel sounds; Absent tenderness *Routine Rectal Exam Rectal:: deferred *Routine Genitalia Exam Genitalia:: deferred *Routine Extremities Exam Extremities: Absent cyanosis, clubbing or edema *Routine Skin Exam Skin: Present warm; Absent rash *Routine Neurological Exam Neurological: Present alert and oriented X3 Assessment and Plan *Assessment and plan (1) GI bleed: Status: Acute Category: Medical Code(s): K92.2 - Gastrointestinal hemorrhage, unspecified (2) Acute anemia: Status: Acute Category: Medical Code(s): D64.9 - Anemia, unspecified (3) Hypertension: Status: Acute Qualifiers: Hypertension type: unspecified Qualified Code(s): I10 - Essential (prim trish) hypertension Category: Medical Code(s): I10 - Essential (primary) hypertension (4) Renal insufficiency: Status: Acute Category: Medical Code(s): N28.9 - Disorder of kidney and ureter, unspecified (5) Anemia: Status: Acute Category: Medical Code(s): D64.9 - Anemia, unspecified (6) CHF (congestive heart failure): Status: Acute Qualifiers: Heart failure chronicity: unspecified Heart failure type: unspecified Qualified Code(s): I50.9 - Heart failure, unspecified Category: Medical Code(s): I50.9 - Heart failure, unspecified (7) Hypertension: Status: Acute Qualifiers: Hypertension type: primary hypertension Qualified Code(s): I10 - E ssential (primary) hypertension Category: Medical Code(s): I10 - Essential (primary) hypertension (8) Coronary artery disease: Status: Acute Qualifiers: Associated angina: without angina Coronary Disease-Associated Artery/Lesion type: [place] artery [place] vs. transplanted heart: [place] heart Qualified Code(s): I25.10 - Atherosclerotic heart disease of [place] coronary artery without angina pectoris Category: Medical Code(s): I25.10 - Atherosclerotic heart disease of [place] coronary artery without angina pectoris (9) Paroxysmal atrial fibrillation: Status: Acute Category: Medical Code(s): I48.0 - Paroxysmal atrial fibrillation Plan Patient is a 83-year-old male with past medical history of paroxysmal atrial fibrillation on Eliquis, CAD, CHF, hyperlipidemia, hypertension, CKD stage IV, iron deficiency who presents to the hospital due to abnormal blood work performed by PCP. According the patient he has been feeling fatigued tired having exertional shortness of breath. Patient mentions he has noticed black tarry stools for past few days, he has been on Eliquis for his atrial fibrillation. Patient was sent to the hospital for further evaluation. Patient denied bright bleeding per rectum. Patient denied chest pain shortness of breath nausea vomiting diarrhea constipation dysuria fevers and chills. Assessment and plan Acute anemia likely anemia of blood loss Iron deficiency anemia Melena, stool occult positive-suspect upper GI bleed Start IV Protonix Monitor H&H Consult general surgery Clear liquid diet for now n.p.o., Gentle IV fluid therapy Monitor and replace hemoglobin low iron and iron saturation - will order venofer Baseline hemoglobin greater than 10, hemoglobin on arrival 7.8 Chronic medical conditions Hypertension Hyperlipidemia History of sick sinus syndrome s/p pacemaker implantation Paroxysmal atrial fibrillation CAD CKD Resume home amiodarone 200 Mg daily, Neurontin 100 twice daily, HCTZ, lisinopril, metoprolol, rosuvastatin, ex, Pepcid Hold antiplatelets anticoagulants including Eliquis DVT prophylaxis-SCDs only, holding Eliquis
[2023-12-28 20:00] VITALS: BP 178/85; PULSE 70; RESP 16; TEMP 36.5; O2SAT 98
[2023-12-28 20:20] LABS: Troponin I < 0.01 ng/ml (0.00-0.034)
[2023-12-28] MEDS: TAMSULOSIN 0.4MG CAPSULE 0.400000000000000022 MG PO (20:50)
[2023-12-28] MEDS: METOPROLOL SUCCINATE XL 100MG TABLET 100 MG PO (20:50)
[2023-12-28] MEDS: GABAPENTIN 100MG CAPSULE 100 MG PO (20:50)
[2023-12-28] MEDS: FAMOTIDINE 20MG TABLET 20 MG PO (20:51)
[2023-12-28] MEDS: PANTOPRAZOLE 40MG VIAL 40 MG IV (20:51)
[2023-12-28 21:25] LABS: Hematocrit 25.4 % (42.0-52.0); Hemoglobin 7.8 g/dL (14.1-18.0)
[2023-12-28 23:13] LABS: Troponin I < 0.01 ng/ml (0.00-0.034)
[2023-12-29] VITALS (18 sets, daily range): BP systolic 107–165; BP diastolic 53–81; PULSE 70–76; RESP 16–18; TEMP 36.4–36.7; O2SAT 93–99; BMI 27.1
[2023-12-29 06:30] LABS: Chloride 107 mmol/L (98-107); Sodium 137 mmol/L (136-145)
[2023-12-29 06:31] LABS: Potassium 3.6 mmoL/L (3.5-5.1)
[2023-12-29 06:33] LABS: Blood Urea Nitrogen 20 mg/dl (9-20); Creatinine Clearance Estimated 49 mL/min (50-200); Estimated Glomerular Filt Rate 42 ml/min (>60); GFR (African American) 50 ML/MIN (>60)
[2023-12-29 06:34] LABS: Anion Gap 4.6 mEq/L (5-15); Calcium 8.3 mg/dl (8.4-10.2); Carbon Dioxide 29 mmol/L (22.0-30.0); Glucose 98 mg/dl (74-100)
[2023-12-29 06:40] LABS: Basophils # 0.1 K/mm3 (0-0.2); Basophils % 1.1 % (0.1-2.0); Eosinophils # 0.3 K/mm3 (0.0-0.4); Eosinophils % 6.7 % (0.1-12.0); Hematocrit 23.4 % (42.0-52.0); Hemoglobin 7.1 g/dL (14.1-18.0); Lymphocytes # 1.3 K/mm3 (0.7-4.5); Lymphocytes % 26.3 % (10-50); Mean Corpuscular HGB Conc 30.2 g/dL (31.8-35.4); Mean Corpuscular Hemoglobin 23.3 pg (27.0-31.2); Mean Corpuscular Volume 77.1 fl (80-94); Mean Platelet Volume 9.2 fl (7.4-10.4); Monocytes # 0.3 K/mm3 (0.1-1.0); Monocytes % 6.4 % (1.7-9.3); Neutrophils # 2.9 K/mm3 (1.8-7.8); Neutrophils % 59.6 % (37.0-80.0); Platelet Count 197 K/mm3 (142-424); Red Blood Count 3.03 M/mm3 (4.60-6.20); Red Cell Distribution Width 15.8 % (11.5-17.5); White Blood Count 4.9 K/mm3 (4.8-10.8)
--- NOTE | 2023-12-29 07:33 | EXP.ACUTE.PN ---
Subjective *Date: 12/29/23 *Time: 17:48 Interval history: Patient feeling better this morning. No active signs of bleeding. Hemodynamically stable. On room air. N.p.o. pending scope. Denies any chest pain or shortness of breath. No nausea or vomiting. Medical Exam Vital signs and Labs for Last 24 Hours: Vital Signs Temp Pulse Pulse Resp BP BP Pulse Ox 12/29/23 07:25 12/29/23 06:56 12/29/23 05:00 12/29/23 04:00 98.1 F 70 16 150/76 H 98 12/29/23 03:00 12/29/23 01:00 12/28/23 23:00 12/28/23 21:00 12/28/23 20:00 12/28/23 20:00 97.7 F 70 16 178/85 H 98 12/28/23 18:37 12/28/23 18:00 12/28/23 17:20 98.2 F 72 20 160/79 H 96 12/28/23 17:03 98.0 F 73 18 146/66 H 12/28/23 15:40 98.0 F 73 18 146/66 H 99 O2 Del Method 12/29/23 07:25 Room Air 12/29/23 06:56 Room Air 12/29/23 05:00 Room Air 12/29/23 04:00 Room Air 12/29/23 03:00 Room Air 12/29/23 01:00 Room Air 12/28/23 23:00 Room Air 12/28/23 21:00 Room Air 12/28/23 20:00 Room Air 12/28/23 20:00 Room Air 12/28/23 18:37 Room Air 12/28/23 18:00 Room Air 12/28/23 17:20 Room Air 12/28/23 17:03 Room Air 12/28/23 15:40 Room Air Intake and Output 12/28/23 12/28/23 12/29/23 15:59 23:59 07:59 Output Total 0 / 0 0 / 0 Balance 0 / 0 0 / 0 Output: Output, Urine Amount 0 / 0 0 / 0 Other: Number of Unmeasured Voids 1 1 Weight 97.522 kg 97.211 kg 95.935 kg Patient Weight 12/29/23 23:59 Weight 95.935 kg Laboratory Results - last 24 hr 12/28/23 15:45: WBC 6.6, RBC 3.22 L, Hgb 7.8 L, Hct 25.0 L, MCV 77.6 L, MCH 24.2 L, MCHC 31.2 L, RDW 15.9, Plt Count 230, MPV 9.5, Neut % (Auto) 64.8, Lymph % (Auto) 21.7, [place] % (Auto) 7.1, Eos % (Auto) 5.5, Baso % (Auto) 0.8, Neut # (Auto) 4.3, Lymph # (Auto) 1.4, [place] # (Auto) 0.5, Eos # (Auto) 0.4, Baso # (Auto) 0.1, PT 12.0, INR 1.12 H, APTT 25.1, D-Dimer 0.30, Sodium 139, Potassium 3.7, Chloride 107, Carbon Dioxide 26, Anion Gap 9.7, BUN 20, Creatinine 2.00 H, Estimated Creat Clear 40, Estimated GFR 32 L, Est GFR ( Amer) 39 L, Glucose 122 H D, Calcium 8.8, Total Bilirubin 0.4, AST 39, ALT 29, Alkaline Phosphatase 43, Troponin I < 0.01, NT-Pro-B Natriuret Pep 1880 H, Total Protein 6.6, Albumin 4.1, Globulin 2.5, Albumin/Globulin Ratio 1.6 12/28/23 15:55: Stool Occult Blood Positive A 12/28/23 16:08: Blood Type A Positive, Antibody Screen Negative 12/28/23 19:22: Troponin I < 0.01 12/28/23 21:10: Hgb 7.8 L, Hct 25.4 L 12/28/23 22:22: Troponin I < 0.01 12/29/23 06:08: WBC 4.9 D, RBC 3.03 L, Hgb 7.1 L, Hct 23.4 L, MCV 77.1 L, MCH 23.3 L, MCHC 30.2 L, RDW 15.8, Plt Count 197, MPV 9.2, Neut % (Auto) 59.6, Lymph % (Auto) 26.3, [place] % (Auto) 6.4, Eos % (Auto) 6.7, Baso % (Auto) 1.1, Neut # (Auto) 2.9, Lymph # (Auto) 1.3, [place] # (Auto) 0.3, Eos # (Auto) 0.3, Baso # (Auto) 0.1, Sodium 137, Potassium 3.6, Chloride 107, Carbon Dioxide 29, Anion Gap 4.6 L, BUN 20, Creatinine 1.60 H, Estimated Creat Clear 49, Estimated GFR 42 L, Est GFR ( Amer) 50 L D, Glucose 98, Calcium 8.3 L I & O for Labs for Last 24 Hours: Intake & Output 12/26/23 12/27/23 12/28/23 12/29/23 23:59 23:59 23:59 23:59 Output Total 0 / 0 0 / 0 Balance 0 / 0 0 / 0 Weight 97.211 kg 95.935 kg Constitutional: Present no acute distress, average body habitus and cooperative Head: Present atraumatic and normocephalic ENT: Present normal exam Neck: Present normal inspection Respiratory: Present normal respiratory effort; Absent rhonchi, wheezes or crackles Cardiac: Present Reg Rate and Rhythm GI: Present soft and normal bowel sounds; Absent distention or tenderness Rectal (male): Present deferred Extremities: Present normal inspection and full ROM Skin: Present intact; Absent erythema Neuro: Present Grossly Intact, alert, awake, oriented x 3 and moves all extremities Assessment and Plan *Assessment and plan (1) GI bleed: Status: Acute Qualifiers: GI bleed type/associated pathology: unspecified gastrointestinal hemorrhage type Qualified Code(s): K92.2 - Gastrointestinal hemorrhage, unspecified Category: Medical Code(s): K92.2 - Gastrointestinal hemorrhage, unspecified (2) Acute anemia: Status: Acute Category: Medical Code(s): D64.9 - Anemia, unspecified (3) Hypertension: Status: Acute Qualifiers: Hypertension type: unspecified Qualified Code(s): I10 - Essential (primary) hypertension Category: Medical Code(s): I10 - Essential (primary) hypertension (4) Pacemaker: Status: Acute Category: Medical Code(s): Z95.0 - Presence of cardiac pacemaker (5) On amiodarone therapy: Status: Acute Category: Medical Code(s): Z79.899 - Other [facility] (current) drug therapy (6) Sick sinus syndrome: Status: Acute Category: Medical Code(s): I49.5 - Sick sinus syndrome (7) Coronary artery disease: Status: Acute Qualifiers: Associated angina: without angina Coronary Disease-Associated Artery/Lesion type: [place] artery [place] vs. transplanted heart: [place] heart Qualified Code(s): I25.10 - Atherosclerotic heart disease of [place] coronary artery without angina pectoris Category: Medical Code(s): I25.10 - Atherosclerotic heart disease of [place] coronary artery without angina pectoris (8) Paroxysmal atrial fibrillation: Status: Acute Category: Medical Code(s): I48.0 - Paroxysmal atrial fibrillation (9) CHF (congestive heart failure): Status: Acute Qualifiers: Heart failure chronicity: unspecified Heart failure type: unspecified Qualified Code(s): I50.9 - Heart failure, unspecified Category: Medical Code(s): I50.9 - Heart failure, unspecified (10) Chronic Kidney Disease: Status: Chronic Qualifiers: Chronic kidney disease stage: stage 4 (severe) Qualified Code(s): N18.4 - Chronic kidney disease, stage 4 (severe) Category: Medical Code(s): N18.9 - Chronic kidney disease, unspecified (11) Hyperlipidemia: Status: Acute Qualifiers: Hyperlipidemia type: mixed hyperlipidemia Qualified Code(s): E78.2 - Mixed hyperlipidemia Category: Medical Code(s): E78.5 - Hyperlipidemia, unspecified Plan Patient is a 83-year-old male with past medical history of paroxysmal atrial fibrillation on Eliquis, CAD, CHF, hyperlipidemia, hypertension, CKD stage IV, iron deficiency who presents to the hospital due to abnormal blood work performed by PCP. According the patient he has been feeling fatigued tired having exertional shortness of breath. Patient mentions he has noticed black tarry stools for past few days, he has been on Eliquis for his paroxysmal atrial fibrillation. Patient was sent to the hospital for further evaluation. Patient denied bright bleeding per rectum. Patient denied chest pain shortness of breath nausea vomiting diarrhea constipation dysuria fevers and chills. Overall feeling well this morning. Still weak. Hemoglobin 7.1 on morning labs. Going for EGD with surgery. Given his questionable need for anticoagulation, cardiology consulted to assist with medication management and further recommendations. Problems addressed as follows: Acute anemia likely anemia of blood loss Iron deficiency anemia GI bleed - Hemoglobin 7.1 this morning, repeat H/H this afternoon -Hemoglobin transfusion threshold of less than 7. -Taken for scope this morning, no active signs of bleeding. Identified mild nonerosive gastritis. Discussed surgery can been continuing PPI therapy. Continue to hold anticoagulation. Will advance diet today. -If hemoglobin stable tomorrow, anticipate discharge tomorrow with pantoprazole 40 mg twice daily for 2 weeks followed by 40 daily thereafter. -Status post 1 dose of Venofer 200 mg. Iron studies show significant deficiency. Iron level of 29, ferritin 6, iron saturation 6.9. Consistent with iron deficiency anemia. -Holding Eliquis Hypertension Hyperlipidemia History of sick sinus syndrome s/p pacemaker implantation Paroxysmal atrial fibrillation CAD -Continue home amiodarone 200 mg daily, gabapentin 100 mg twice daily. Resume home HCTZ, lisinopril, metoprolol, Crestor. -Discussed case with cardiology, recommend holding Eliquis at this time. Interrogation of patient's pacemaker shows 0% A. tach or A-fib burden. No episodes of A-fib on current regimen. Would recommend consideration for Watchman device as an outpatient once he has recovered from his anemia. -Obtaining echocardiogram to evaluate heart failure given history of heart failure preserved ejection fraction. CKD: Creatinine 1.6 today. This appears to be his baseline. Improved from 2.0 at admission. Repeat CBC, CMP, magnesium ordered for the morning. Full code Regular diet DVT prophylaxis-SCDs only, holding Eliquis
--- NOTE | 2023-12-29 07:43 | HMH.PHAINT1 ---
Pharmacy Intervention Comments: HOME MEDICATION LIST VERIFIED VIA OUTSIDE PHARMACY AND PATIENT
--- NOTE | 2023-12-29 08:12 | P.PN_ITS ---
Subjective Patient reports: no new complaints Exam Data for Last 24 hours Vital signs and Labs for Last 24 Hours: Temp Pulse Resp BP Pulse Ox O2 Del Method 97.9 F 70 17 165/80 H 99 Room Air 12/29/23 07:55 12/29/23 07:55 12/29/23 07:55 12/29/23 07:55 12/29/23 07:55 12/29/23 07:55 Laboratory Results - last 24 hr 12/28/23 15:45: WBC 6.6, RBC 3.22 L, Hgb 7.8 L, Hct 25.0 L, MCV 77.6 L, MCH 24.2 L, MCHC 31.2 L, RDW 15.9, Plt Count 230, MPV 9.5, Neut % (Auto) 64.8, Lymph % (Auto) 21.7, [place] % (Auto) 7.1, Eos % (Auto) 5.5, Baso % (Auto) 0.8, Neut # (Auto) 4.3, Lymph # (Auto) 1.4, [place] # (Auto) 0.5, Eos # (Auto) 0.4, Baso # (Auto) 0.1, PT 12.0, INR 1.12 H, APTT 25.1, D-Dimer 0.30, Sodium 139, Potassium 3.7, Chloride 107, Carbon Dioxide 26, Anion Gap 9.7, BUN 20, Creatinine 2.00 H, Estimated Creat Clear 40, Estimated GFR 32 L, Est GFR ( Amer) 39 L, Glucose 122 H D, Calcium 8.8, Total Bilirubin 0.4, AST 39, ALT 29, Alkaline Phosphatase 43, Troponin I < 0.01, NT-Pro-B Natriuret Pep 1880 H, Total Protein 6.6, Albumin 4.1, Globulin 2.5, Albumin/Globulin Ratio 1.6 12/28/23 15:55: Stool Occult Blood Positive A 12/28/23 16:08: Blood Type A Positive, Antibody Screen Negative 12/28/23 19:22: Troponin I < 0.01 12/28/23 21:10: Hgb 7.8 L, Hct 25.4 L 12/28/23 22:22: Troponin I < 0.01 12/29/23 06:08: WBC 4.9 D, RBC 3.03 L, Hgb 7.1 L, Hct 23.4 L, MCV 77.1 L, MCH 23.3 L, MCHC 30.2 L, RDW 15.8, Plt Count 197, MPV 9.2, Neut % (Auto) 59.6, Lymph % (Auto) 26.3, [place] % (Auto) 6.4, Eos % (Auto) 6.7, Baso % (Auto) 1.1, Neut # (Auto) 2.9, Lymph # (Auto) 1.3, [place] # (Auto) 0.3, Eos # (Auto) 0.3, Baso # (Auto) 0.1, Sodium 137, Potassium 3.6, Chloride 107, Carbon Dioxide 29, Anion Gap 4.6 L, BUN 20, Creatinine 1.60 H, Estimated Creat Clear 49, Estimated GFR 42 L, Est GFR ( Amer) 50 L D, Glucose 98, Calcium 8.3 L I & O for Last 24 hours: Intake & Output 12/26/23 12/27/23 12/28/23 12/29/23 11:59 11:59 11:59 11:59 Output Total 0 / 0 Balance 0 / 0 Weight 211 lb 8 oz Constitutional Constitutional: no acute distress Progress Note: A&P Assessment and plan (1) GI bleed: Status: Acute Assessment and plan: EGD today to investigate potential GI source of anemia (2) Acute anemia: Status: Acute (3) Hypertension: Status: Acute (4) Renal insufficiency: Status: Acute (5) Anemia: Status: Acute (6) CHF (congestive heart failure): Status: Acute (7) Coronary artery disease: Status: Acute (8) Paroxysmal atrial fibrillation: Status: Acute
[2023-12-29] MEDS: IRON SUCROSE COMPLEX 200 MG in 0.9 % SODIUM CHLORIDE 100 ML 220 MG IV (08:18)
[2023-12-29] MEDS: LISINOPRIL/HCTZ 10-12.5MG TABLET 1 EACH PO (08:19)
[2023-12-29] MEDS: PANTOPRAZOLE 40MG VIAL 40 MG IV ×2 (08:19→20:29)
[2023-12-29] MEDS: SODIUM CHLORIDE 0.9% 10ML VIAL 10 ML IV (08:19)
[2023-12-29] MEDS: TAMSULOSIN 0.4MG CAPSULE 0.400000000000000022 MG PO ×2 (08:20→20:29)
[2023-12-29] MEDS: AMIODARONE 200MG TABLET 200 MG PO (08:20)
[2023-12-29] MEDS: GABAPENTIN 100MG CAPSULE 100 MG PO ×2 (08:20→20:29)
[2023-12-29] MEDS: FAMOTIDINE 20MG TABLET 20 MG PO (08:20)
[2023-12-29 09:11] LABS: Hematocrit 23.1 % (42.0-52.0); Hemoglobin 7.2 g/dL (14.1-18.0)
--- NOTE | 2023-12-29 11:07 | EXP.CARD.CON ---
History of Present Illness History of Present Illness Consult date: 12/29/23 Requesting physician: Jayson Lemus Consult reason: atrial fibrillation and known to you Chief complaint: SOA, fatigue History of present illness: This is an 83-year-old white gentleman who presented to the emergency department with complaints of shortness of breath, fatigue and a GI bleed. The patient was seen in cardiology clinic yesterday and stated that he was profoundly short of breath. He states that this had significantly worsened within the last several weeks but he has noticed quite a bit of shortness of breath since September. He states that now he is unable to walk from the bed to the door without having to stop due to profound shortness of breath which is associated with fatigue. He denies any chest pain or pressure. He denies any lower extremity edema. The patient states that he is normally very active and over the last several weeks his shortness of breath has significantly limited him. He came in the cardiology clinic yesterday he had some blood work obtained and he had a hemoglobin of 7.6. The patient was then sent to the emergency department for further evaluation of his significant anemia. The patient did report in the emergency department that he did have some black tarry stools. He states that approximately 7 to 10 days ago he had 2 days of black tarry stools. He states that he really did not think much about this and did not report having the stools. The patient went to see a Dr. Hrarell who is a surgical services assistant in [facility]. He states that his family decided that he needed to see this surgical services assistant therefore a second opinion. He reports that the surgical services assistant there started him on Eliquis due to his history of paroxysmal atrial fibrillation on October 07, 2023. He states since that time he has noted that he has been more progressively short of breath. Although the patient does have a history of paroxysmal atrial fibrillation, he had not been started on anticoagulation before then due to his history of a spontaneous subdural bleed. He states that his family forced him to see this surgical services assistant for second opinion but he had decided that he was going to continue his cardiology care here at [facility]. The patient denies any chest pain or pressure. He denies any lower extremity edema. He denies any fever, chills, nausea, vomiting, diarrhea, PND or orthopnea. [facility] Disclaimer: The information contained in this section may have been updated after the patient was seen, as this information can be updated by other users. Medical History (Updated 12/29/23 @ 11:13 by Lizzeth Gómez APRN) Chronic Kidney Disease GERD (gastroesophageal reflux disease) Anemia Tinnitus Hearing loss Sick sinus syndrome Tachy-kirit syndrome Abnormal electrocardiogram [ECG] [EKG] Hyperlipidemia Coronary artery disease Paroxysmal atrial fibrillation SDH (subdural hematoma) Cataract BPH (benign prostatic hyperplasia) Hypertension CAST[place]O (acute kidney injury) CHF (congestive heart failure) Surgical History Hip joint replacement status Stented coronary artery Family History Other No significant family history Social History (Updated 12/28/23 @ 16:55 by Katerina Quevedo, RN) Smoking Status: Unknown if ever smoked alcohol intake: never substance use type: denies use current occupational status: retired and other Travel in the last 8 weeks: None Review of Systems Review of Systems Review of systems:: pertinent systems reviewed and negative unless documented below Constitutional Constitutional: Reports system reviewed and no additional complaints, except as documented, Reports fatigue, Reports lethargy and Reports weakness Eyes Eyes: Reports system reviewed and no additional complaints, except as documented ENT Ears, Nose, Mouth, and Throat: Reports system reviewed and no additional complaints, except as documented *Cardiovascular Cardiovascular: Reports system reviewed and no additional complaints, except as documented, Denies chest pain, Reports dyspnea and Reports dyspnea on exertion *Respiratory Respiratory: Reports system reviewed and no additional complaints, except as documented, Denies cough, Reports dyspnea and Reports dyspnea on exertion *Gastrointestinal Gastrointestinal: Reports system reviewed and no additional complaints, except as documented *Genitourinary Genitourinary: Reports system reviewed and no additional complaints, except as documented *Musculoskeletal Musculoskeletal: Reports system reviewed and no additional complaints, except as documented Integumentary/Breasts Skin/Breast: Reports system reviewed and no additional complaints, except as documented *Neurologic Neurologic: Reports system reviewed and no additional complaints, except as documented and Reports weakness Psychiatric Psychiatric: Reports system reviewed and no additional complaints, except as documented Endocrine Endocrine: Reports system reviewed and no additional complaints, except as documented and Reports fatigue Hematologic/Lymphatic Hematologic/Lymphatic: Reports system reviewed and no additional complaints, except as documented Allergic/Immunologic Allergic/Immunologic: Reports system reviewed and no additional complaints, except as documented Exam Data for Last 24 hours Vital signs and Labs for Last 24 Hours: Temp Pulse Resp BP Pulse Ox O2 Del Method 97.9 F 70 17 165/80 H 99 Room Air 12/29/23 07:55 12/29/23 07:55 12/29/23 07:55 12/29/23 07:55 12/29/23 07:55 12/29/23 10:50 Laboratory Results - last 24 hr 12/28/23 15:45: WBC 6.6, RBC 3.22 L, Hgb 7.8 L, Hct 25.0 L, MCV 77.6 L, MCH 24.2 L, MCHC 31.2 L, RDW 15.9, Plt Count 230, MPV 9.5, Neut % (Auto) 64.8, Lymph % (Auto) 21.7, Republic % (Auto) 7.1, Eos % (Auto) 5.5, Baso % (Auto) 0.8, Neut # (Auto) 4.3, Lymph # (Auto) 1.4, Republic # (Auto) 0.5, Eos # (Auto) 0.4, Baso # (Auto) 0.1, PT 12.0, INR 1.12 H, APTT 25.1, D-Dimer 0.30, Sodium 139, Potassium 3.7, Chloride 107, Carbon Dioxide 26, Anion Gap 9.7, BUN 20, Creatinine 2.00 H, Estimated Creat Clear 40, Estimated GFR 32 L, Est GFR ( Amer) 39 L, Glucose 122 H D, Calcium 8.8, Total Bilirubin 0.4, AST 39, ALT 29, Alkaline Phosphatase 43, Troponin I < 0.01, NT-Pro-B Natriuret Pep 1880 H, Total Protein 6.6, Albumin 4.1, Globulin 2.5, Albumin/Globulin Ratio 1.6 12/28/23 15:55: Stool Occult Blood Positive A 12/28/23 16:08: Blood Type A Positive, Antibody Screen Negative 12/28/23 19:22: Troponin I < 0.01 12/28/23 21:10: Hgb 7.8 L, Hct 25.4 L 12/28/23 22:22: Troponin I < 0.01 12/29/23 06:08: WBC 4.9 D, RBC 3.03 L, Hgb 7.1 L, Hct 23.4 L, MCV 77.1 L, MCH 23.3 L, MCHC 30.2 L, RDW 15.8, Plt Count 197, MPV 9.2, Neut % (Auto) 59.6, Lymph % (Auto) 26.3, Republic % (Auto) 6.4, Eos % (Auto) 6.7, Baso % (Auto) 1.1, Neut # (Auto) 2.9, Lymph # (Auto) 1.3, Republic # (Auto) 0.3, Eos # (Auto) 0.3, Baso # (Auto) 0.1, Sodium 137, Potassium 3.6, Chloride 107, Carbon Dioxide 29, Anion Gap 4.6 L, BUN 20, Creatinine 1.60 H, Estimated Creat Clear 49, Estimated GFR 42 L, Est GFR ( Amer) 50 L D, Glucose 98, Calcium 8.3 L 12/29/23 09:03: Hgb 7.2 L, Hct 23.1 L I & O for Last 24 hours: Intake & Output 12/26/23 12/27/23 12/28/23 12/29/23 23:59 23:59 23:59 23:59 Output Total 0 / 0 0 / 0 Balance 0 / 0 0 / 0 Weight 214 lb 5 oz 211 lb 8 oz Constitutional Constitutional: no acute distress and average body habitus *Routine HEENT Exam Head: Present normocephalic and atraumatic ENT: Present mucous membranes moist *Routine Neck Exam Neck: Present supple, full ROM and normal carotid upstroke; Absent JVD, carotid bruit or lymphadenopathy *Routine Respiratory Exam Respiratory: Present CTA bilaterally, normal respiratory effort, able to speak in complete sentences and symmetric chest movement *Routine Cardiovascular Exam Cardiovascular: Present RRR, Normal S1 and Normal S2; Absent murmur or gallop *Routine Abdominal Exam Abdominal: Present soft and normoactive bowel sounds; Absent tenderness, distended or organomegaly *Routine Extremities Exam Extremities: Present full ROM, pulses intact and normal capillary refill; Absent cyanosis, clubbing or edema *Routine Skin Exam Skin: Present intact and warm; Absent erythema *Routine Neurological Exam Neurological: Present alert, oriented X3 and CN II-XII intact; Absent sensory deficit or motor deficit Routine Psychiatric Exam Psychiatric: Present normal affect Meds Home Medications and Allergies Home Medications Medication Instructions Recorded Confirmed Type famotidine 20 mg tablet 20 mg PO BID 02/08/23 12/28/23 History gabapentin 100 mg capsule 100 mg PO BID 02/08/23 12/28/23 History rosuvastatin 10 mg tablet 10 mg PO HS 02/08/23 12/28/23 History tamsulosin 0.4 mg capsule 0.4 mg PO BID 02/08/23 12/28/23 History fenofibric acid (choline) 135 mg 135 mg PO DAILY 02/09/23 12/28/23 History capsule,delayed release amiodarone 200 mg tablet 200 mg PO DAILY #30 tabs 12/01/23 12/29/23 Rx apixaban 5 mg tablet (Eliquis) 5 mg PO BID 12/28/23 12/28/23 History lisinopril 20 0.5 tab PO DAILY 12/28/23 12/29/23 History mg-hydrochlorothiazide 12.5 mg tablet metoprolol succinate 100 mg 100 mg PO HS 12/28/23 12/28/23 History tablet,extended release 24 hr New Prescriptions to Start Prescriptions: Allergies Allergy/AdvReac Type Severity Reaction Status Date / Time No Known Allergies Allergy Verified 12/28/23 11:41 Assessment and Plan *Assessment and plan (1) GI bleed: Status: Acute Qualifiers: GI bleed type/associated pathology: unspecified gastrointestinal hemorrhage type Qualified Code(s): K92.2 - Gastrointestinal hemorrhage, unspecified Category: Medical Code(s): K92.2 - Gastrointestinal hemorrhage, unspecified (2) Acute anemia: Status: Acute Category: Medical Code(s): D64.9 - Anemia, unspecified (3) Dyspnea: Status: Acute Qualifiers: Dyspnea type: shortness of breath Qualified Code(s): R06.02 - Shortness of breath Category: Medical Code(s): R06.00 - Dyspnea, unspecified (4) Pacemaker: Status: Acute Category: Medical Code(s): Z95.0 - Presence of cardiac pacemaker (5) On amiodarone therapy: Status: Acute Category: Medical Code(s): Z79.899 - Other alf (current) drug therapy (6) Hypertension: Status: Acute Qualifiers: Hypertension type: unspecified Qualified Code(s): I10 - Essential (primary) hypertension Category: Medical Code(s): I10 - Essential (primary) hypertension (7) Sick sinus syndrome: Status: Acute Category: Medical Code(s): I49.5 - Sick sinus syndrome (8) Coronary artery disease: Status: Acute Qualifiers: Associated angina: without angina Coronary Disease-Associated Artery/Lesion type: beaver artery [place] vs. transplanted heart: beaver heart Qualified Code(s): I25.10 - Atherosclerotic heart disease of beaver coronary artery without angina pectoris Category: Medical Code(s): I25.10 - Atherosclerotic heart disease of beaver coronary artery without angina pectoris (9) Paroxysmal atrial fibrillation: Status: Acute Category: Medical Code(s): I48.0 - Paroxysmal atrial fibrillation (10) Hypertension: Status: Acute Qualifiers: Hypertension type: primary hypertension Qualified Code(s): I10 - Essential (primary) hypertension Category: Medical Code(s): I10 - Essential (primary) hypertension (11) CHF (congestive heart failure): Status: Acute Qualifiers: Heart failure chronicity: unspecified Heart failure type: unspecified Qualified Code(s): I50.9 - Heart failure, unspecified Category: Medical Code(s): I50.9 - Heart failure, unspecified (12) Chronic Kidney Disease: Status: Acute Qualifiers: Chronic kidney disease stage: stage 4 (severe) Qualified Code(s): N18.4 - Chronic kidney disease, stage 4 (severe) Category: Medical Code(s): N18.9 - Chronic kidney disease, unspecified (13) Hyperlipidemia: Status: Acute Qualifiers: Hyperlipidemia type: mixed hyperlipidemia Qualified Code(s): E78.2 - Mixed hyperlipidemia Category: Medical Code(s): E78.5 - Hyperlipidemia, unspecified Plan Plan: 1. The patient was admitted to the hospital due to acute anemia and a GI bleed. The patient has been consulted by surgery and is scheduled to undergo EGD today. 2. The patient was recently started on Eliquis by Dr. James in [facility]. The patient reports that he went to see this doctor for a second opinion due to his family wanting him to be seen by this doctor. He started him on the Eliquis due to a history of paroxysmal atrial fibrillation and since that time he has had progressively worsening shortness of breath and fatigue. Stop Eliquis at this time. 3. The patient does have a history of paroxysmal atrial fibrillation. I have went back and reviewed his most recent pacemaker interrogations which show 0% AT/AF burden. He is currently not had any episodes of atrial fibrillation and remains on amiodarone for atrial fibrillation suppression. We will hold his Eliquis at this time due to his GI bleed. 4. Will refer the patient for consideration of a watchman's device on an outpatient basis once he has recovered from his anemia since he is not going to be able to take anticoagulation due to a GI bleed on it. He also has a history of a spontaneous subdural bleed so that is why he has historically not been on oral anticoagulation. 5. Coronary artery disease is present. He denies any chest pain or pressure. No plans for invasive left cardiac catheterization at this time. 6. His blood pressure is acceptable. 7. His LDL goal is less than 55. His LDL is 77. He is on a statin. 8. The patient is status post permanent pacemaker placement secondary to sick sinus syndrome. 9. Will obtain an echocardiogram to evaluate his LV function. The patient does have a history of HFpEF. 10. The patient's chronic kidney disease is stable. His creatinine is 1.6 today 11. Further recommendations will be made pending the patient's response to treatment and the results of his EGD and echocardiogram today. Thank you for the opportunity to help participate in the care of this patient. All recommendations and orders are per Dr. Jj.
--- NOTE | 2023-12-29 11:42 | P.PCN_ITS ---
Procedure: Date: 12/29/23 Patient Date of :: 1940 Procedure Performed:: Esophagogastroduodenoscopy Indications:: Patient is an 83-year-old male with history of hypertension, renal insufficiency, sick sinus syndrome, pacemaker placement, congestive heart failure, coronary artery disease with stenting, history of paroxysmal atrial fibrillation. He was recently placed on Eliquis by cardiology in [place]. Subsequently the patient has developed some shortness of air. Patient has recently been diagnosed with anemia and has a pending consultation with Dr. Contreras. He was being seen in cardiology clinic yesterday for progressive shortness of air. He states that this has been ongoing for at least weeks if not months. Underwent blood work which revealed a hemoglobin of 7.6. He has a baseline hemoglobin of approximately 13. He was sent to the emergency department. Patient states that several weeks ago he had some dark stools but has not had any symptoms consistent with hematochezia or melena recently. Patient was evaluated in the emergency department and plan was for admission with surgical consultation. Surgical consultation was ordered for the evening of 12/28/2023. He had no issues overnight. His hemoglobin decreased to 7.1 but he had no clinical bleeding. Plan was made to proceed with upper endoscopy. Performing Provider:: Rai Dai MD Referring Provider:: Trae Lujan MD Sedation:: MAC sedation Procedure:: Patient history was obtained and appropriate physical examination was performed. Patient's medications and allergies were reviewed. Informed consent was obtained after explaining the benefits, alternatives, and risks of the procedure including, but not limited to, bleeding, perforation, missed lesions, and adverse reaction to anesthesia medications. Patient was transported to endoscopy procedure room. Patient was connected to monitoring devices. Throughout the procedure the patient's blood pressure, pulse, and oxygen saturations were monitored continuously. Patient identification and planned procedure were verified by the staff. Patient was positioned in lateral decubitus position. Olympus endoscope was inserted via the oropharynx. Esophagus was cannulated. There was some minor tortuosity to the esophagus consistent with mild esophageal dysmotility. Gastroesophageal junction was encountered at 45 cm. Stomach was cannulated and insufflated. Retroflexion revealed no evidence of any appreciable hiatal hernia. There was moderate nonerosive patchy antral gastritis. There was no evidence of any erosions or ulcerations. No evidence of any recent bleeding. Pylorus was traversed. Careful inspection was carried out of the duodenal bulb which appeared relatively unremarkable. Duodenal sweep was unremarkable. Endoscope was withdrawn. . Findings:: Mild esophageal dysmotility Gastroesophageal junction at 45 cm Moderate nonerosive antral gastritis Recommendations:: No evidence of any source of acute blood loss on upper endoscopy. Possible patient had more significant blood loss weeks ago and this has now shown improvement and resolution. Would recommend holding anticoagulants possible and monitor hemoglobin for stability and transfuse if needed. May need colonoscopy for completeness in the early outpatient setting Complications:: None immediately apparent Estimated blood obtained (mL): 0 Colonoscopy Component Colonoscopy Component Was a colonoscopy performed during today's procedure?: No
[2023-12-29 13:31] LABS: Hematocrit 23.1 % (42.0-52.0); Hemoglobin 7.3 g/dL (14.1-18.0)
--- NOTE | 2023-12-29 17:25 | PC.NURSE ---
PT IS RESTING IN BED. ALERT AND ORIENTED X4. EATING AND DRINKING WELL. PT HAS BEEN AMBULATING TO THE BATHROOM. NO COMPLAINTS OF CP OR SOA. LUNG SOUNDS CLEAR. ABDOMEN SOFT/NON TENDER WITH ACTIVE BOWEL SOUNDS. NO SWELLING NOTED TO BLE. WILL CONTINUE TO MONITOR.
[2023-12-29] MEDS: METOPROLOL SUCCINATE XL 100MG TABLET 100 MG PO (20:29)
[2023-12-29] MEDS: ATORVASTATIN 40MG TABLET 40 MG PO (20:29)
--- NOTE | 2023-12-29 22:11 | PC.NURSE ---
PATIENT DENIES PAIN. REPORTS BM EARLIER TODAY, DENIES BLACK OR RED STOOLS. VITALS STABLE. AFEBRILE. PLEASANT AND COOPERATIVE. PERFORMS 2500 ML ON INCENTIVE SPIROMETER. POSSIBLE HOME TOMORROW IF H&H STABLE.
[2023-12-30] VITALS: BP 110/70; PULSE 70; RESP 16; TEMP 36.6; O2SAT 94
[2023-12-30 04:00] VITALS: BP 163/80; PULSE 73; RESP 16; TEMP 36.6; O2SAT 98; BMI 27.1
[2023-12-30 06:06] LABS: Chloride 108 mmol/L (98-107); Potassium 3.3 mmoL/L (3.5-5.1); Sodium 138 mmol/L (136-145)
[2023-12-30 06:09] LABS: Anion Gap 4.3 mEq/L (5-15); Blood Urea Nitrogen 17 mg/dl (9-20); Calcium 8.7 mg/dl (8.4-10.2); Carbon Dioxide 29 mmol/L (22.0-30.0); Creatinine Clearance Estimated 44 mL/min (50-200); Estimated Glomerular Filt Rate 36 ml/min (>60); GFR (African American) 44 ML/MIN (>60); Glucose 110 mg/dl (74-100)
[2023-12-30 06:55] LABS: Basophils # 0.1 K/mm3 (0-0.2); Basophils % 1.2 % (0.1-2.0); Eosinophils # 0.3 K/mm3 (0.0-0.4); Eosinophils % 5.1 % (0.1-12.0); Hematocrit 26.2 % (42.0-52.0); Hemoglobin 7.9 g/dL (14.1-18.0); Lymphocytes # 1.2 K/mm3 (0.7-4.5); Lymphocytes % 22.4 % (10-50); Mean Corpuscular HGB Conc 30.2 g/dL (31.8-35.4); Mean Corpuscular Hemoglobin 23.5 pg (27.0-31.2); Mean Corpuscular Volume 77.7 fl (80-94); Mean Platelet Volume 9.9 fl (7.4-10.4); Monocytes # 0.4 K/mm3 (0.1-1.0); Monocytes % 7.7 % (1.7-9.3); Neutrophils # 3.5 K/mm3 (1.8-7.8); Neutrophils % 63.6 % (37.0-80.0); Platelet Count 220 K/mm3 (142-424); Red Blood Count 3.37 M/mm3 (4.60-6.20); Red Cell Distribution Width 16.4 % (11.5-17.5); White Blood Count 5.5 K/mm3 (4.8-10.8)
--- NOTE | 2023-12-30 06:56 | EXP.SURG.PN ---
Subjective Narrative: The patient is currently resting. No issues overnight per nursing. Exam Data for Last 24 hours Vital signs and Labs for Last 24 Hours: Temp Pulse Resp BP Pulse Ox O2 Del Method O2 Flow Rate 97.9 F 73 16 163/80 H 98 Room Air 5 12/30/23 04:00 12/30/23 04:00 12/30/23 04:00 12/30/23 04:00 12/30/23 04:00 12/30/23 06:26 12/29/23 11:28 Laboratory Results - last 24 hr 12/29/23 09:03: Hgb 7.2 L, Hct 23.1 L 12/29/23 12:55: Hgb 7.3 L, Hct 23.1 L 12/30/23 05:47: WBC 5.5, RBC 3.37 L, Hgb 7.9 L, Hct 26.2 L, MCV 77.7 L, MCH 23.5 L, MCHC 30.2 L, RDW 16.4, Plt Count 220, MPV 9.9, Neut % (Auto) 63.6, Lymph % (Auto) 22.4, Roberts % (Auto) 7.7, Eos % (Auto) 5.1, Baso % (Auto) 1.2, Neut # (Auto) 3.5, Lymph # (Auto) 1.2, Roberts # (Auto) 0.4, Eos # (Auto) 0.3, Baso # (Auto) 0.1, Sodium 138, Potassium 3.3 L, Chloride 108 H, Carbon Dioxide 29, Anion Gap 4.3 L, BUN 17, Creatinine 1.80 H, Estimated Creat Clear 44, Estimated GFR 36 L, Est GFR ( Amer) 44 L, Glucose 110 H, Calcium 8.7 I & O for Last 24 hours: Intake & Output 12/27/23 12/28/23 12/29/23 12/30/23 11:59 11:59 11:59 11:59 Intake Total 1340 / 1340 Output Total 0 / 0 Balance 0 / 0 1339 / 1339 Weight 211 lb 8 oz 211 lb 9.6 oz Constitutional Constitutional: no acute distress *Routine Respiratory Exam Respiratory: Absent respiratory distress Progress Note: A&P Assessment and plan (1) Acute anemia: Status: Acute Assessment and plan: Hemoglobin up to 7.9 today (2) GI bleed: Status: Acute Assessment and plan: No definitive evidence of ongoing gastrointestinal hemorrhage (3) Gastritis: Status: Acute Assessment and plan: Equivocal in terms of causative etiology for anemia. Continue proton pump inhibition Assessment and Plan Assessment and Plan for All Diagnoses:: Forwarded from Dr. Dai's recommendations status post EGD: No evidence of any source of acute blood loss on upper endoscopy. Possible patient had more significant blood loss weeks ago and this has now shown improvement and resolution. Would recommend holding anticoagulants possible and monitor hemoglobin for stability and transfuse if needed. May need colonoscopy for completeness in the early outpatient setting
[2023-12-30 07:24] VITALS: BP 112/62; PULSE 79; RESP 18; TEMP 36.4; O2SAT 95
--- NOTE | 2023-12-30 07:42 | EXP.DC.SUM ---
General Admission date:: 12/28/23 Discharge date: 12/30/23 HPI HPI HPI: Patient is a 83-year-old male with past medical history of paroxysmal atrial fibrillation on Eliquis, CAD, CHF, hyperlipidemia, hypertension, CKD stage IV, iron deficiency who presents to the hospital due to abnormal blood work performed by PCP. According the patient he has been feeling fatigued tired having exertional shortness of breath. Patient mentions he has noticed black tarry stools for past few days, he has been on Eliquis for his atrial fibrillation. Patient was sent to the hospital for further evaluation. Patient denied bright bleeding per rectum. Patient denied chest pain shortness of breath nausea vomiting diarrhea constipation dysuria fevers and chills. Hospital Course Hospital Course Hospital Course: Patient is a 83-year-old male with past medical history of paroxysmal atrial fibrillation on Eliquis, CAD, CHF, hyperlipidemia, hypertension, CKD stage IV, iron deficiency who presents to the hospital due to abnormal blood work performed by PCP. According the patient he has been feeling fatigued tired having exertional shortness of breath. Patient mentions he has noticed black tarry stools for past few days, he has been on Eliquis for his paroxysmal atrial fibrillation. Patient was sent to the hospital for further evaluation. Patient denied bright bleeding per rectum. Patient denied chest pain shortness of breath nausea vomiting diarrhea constipation dysuria fevers and chills. Patient has been clinically stable during admission. Hemoglobin improved from below 7.1-7.9 by day of discharge without transfusion. Stable to discharge home with further medical management as an outpatient. Problems addressed as follows: Acute anemia likely anemia of blood loss Iron deficiency anemia GI bleed -Hemoglobin 7.7 on admission, dropped to 7.1 but improved to 7.9 by morning of discharge. Did not receive any blood transfusion during admission. Did receive 1 dose of Venofer 200 mg IV iron. Will continue IV iron as an outpatient with 4 more doses. Order sent to infusion for further treatment. Iron levels during admission low at 29, ferritin 6, saturation 6.9%. Findings consistent with iron deficiency anemia. Will discontinue his Eliquis at this time as it is likely the culprit for slow GI loss. Holding on aspirin as well until he is outside of the acute phase of his illness. Surgery was consulted, he was taken for a scope on 12/28. No active signs of bleeding. Identified mild nonerosive gastritis. Discussed surgery can been continuing PPI therapy. Will continue pantoprazole 40 mg p.o. twice daily for 2 weeks and decrease to once daily thereafter. Follow-up with surgery in the coming weeks for reevaluation. Hypertension Hyperlipidemia History of sick sinus syndrome s/p pacemaker implantation Paroxysmal atrial fibrillation CAD -Continue home amiodarone 200 mg daily, gabapentin 100 mg twice daily. Resume home HCTZ, lisinopril, metoprolol, Crestor. -Discussed case with cardiology, recommend holding Eliquis at this time. Interrogation of patient's pacemaker shows 0% A. tach or A-fib burden. No episodes of A-fib on current regimen. Would recommend consideration for Watchman device as an outpatient once he has recovered from his anemia. -Obtaining echocardiogram to evaluate heart failure given history of heart failure preserved ejection fraction. Pending formal read at discharge. CKD: Creatinine 1.6-1.8 during admission. This appears to be his baseline. Improved from 2.0 at admission. Exam Data for Last 24 hours Vital signs and Labs for Last 24 Hours: Temp Pulse Resp BP Pulse Ox O2 Del Method O2 Flow Rate 97.6 F 79 18 112/62 95 Room Air 5 12/30/23 07:24 12/30/23 07:24 12/30/23 07:24 12/30/23 07:24 12/30/23 07:24 12/30/23 07:24 12/29/23 11:28 Laboratory Results - last 24 hr 12/29/23 09:03: Hgb 7.2 L, Hct 23.1 L 12/29/23 12:55: Hgb 7.3 L, Hct 23.1 L 12/30/23 05:47: WBC 5.5, RBC 3.37 L, Hgb 7.9 L, Hct 26.2 L, MCV 77.7 L, MCH 23.5 L, MCHC 30.2 L, RDW 16.4, Plt Count 220, MPV 9.9, Neut % (Auto) 63.6, Lymph % (Auto) 22.4, [place] % (Auto) 7.7, Eos % (Auto) 5.1, Baso % (Auto) 1.2, Neut # (Auto) 3.5, Lymph # (Auto) 1.2, [place] # (Auto) 0.4, Eos # (Auto) 0.3, Baso # (Auto) 0.1, Sodium 138, Potassium 3.3 L, Chloride 108 H, Carbon Dioxide 29, Anion Gap 4.3 L, BUN 17, Creatinine 1.80 H, Estimated Creat Clear 44, Estimated GFR 36 L, Est GFR ( Amer) 44 L, Glucose 110 H, Calcium 8.7 I & O for Last 24 hours: Intake & Output 12/27/23 12/28/23 12/29/23 12/30/23 23:59 23:59 23:59 23:59 Intake Total 1100 / 1100 460 / 460 Output Total 0 / 0 0 / 0 Balance 0 / 0 1100 / 1100 459 / 459 Weight 97.211 kg 95.935 kg 95.98 kg Constitutional Constitutional: no acute distress, average body habitus and cooperative *Routine HEENT Exam Head: Present normocephalic Eye: Present EOMI and PERRL ENT: Present mucous membranes moist *Routine Neck Exam Neck: Present supple; Absent lymphadenopathy *Routine Respiratory Exam Respiratory: Present CTA bilaterally; Absent rhonchi, wheezes or crackles *Routine Cardiovascular Exam Cardiovascular: Present RRR *Routine Abdominal Exam Abdominal: Present soft and normoactive bowel sounds; Absent tenderness *Routine Rectal Exam Patient deferred: visual exam *Routine Exam Patient deferred: penile exam *Routine Extremities Exam Extremities: Absent cyanosis, clubbing or edema *Routine Skin Exam Skin: Present warm; Absent rash *Routine Neurological Exam Neurological: Present alert, oriented X3 and moving all extremities; Absent altered mental status Results Data Completed and Pending Labs on day of discharge: Labs from last 24 hours 12/30/23 12/29/23 12/29/23 05:47 12:55 09:03 WBC 5.5 RBC 3.37 L Hgb 7.9 L 7.3 L 7.2 L Hct 26.2 L 23.1 L 23.1 L MCV 77.7 L MCH 23.5 L MCHC 30.2 L RDW 16.4 Plt Count 220 MPV 9.9 Neut % (Auto) 63.6 Lymph % (Auto) 22.4 [place] % (Auto) 7.7 Eos % (Auto) 5.1 Baso % (Auto) 1.2 Neut # (Auto) 3.5 Lymph # (Auto) 1.2 [place] # (Auto) 0.4 Eos # (Auto) 0.3 Baso # (Auto) 0.1 Sodium 138 Potassium 3.3 L Chloride 108 H Carbon Dioxide 29 Anion Gap 4.3 L BUN 17 Creatinine 1.80 H Estimated Creat Clear 44 Estimated GFR 36 L Est GFR ( Amer) 44 L Glucose 110 H Calcium 8.7 DS: Diagnosis Discharge Diagnosis (1) Acute anemia: Status: Acute Code(s): D64.9 - Anemia, unspecified (2) GI bleed: Status: Acute Code(s): K92.2 - Gastrointestinal hemorrhage, unspecified Qualifiers: GI bleed type/associated pathology: unspecified gastrointestinal hemorrhage type Qualified Code(s): K92.2 - Gastrointestinal hemorrhage, unspecified (3) Gastritis: Status: Acute Code(s): K29.70 - Gastritis, unspecified, without bleeding Meds Home Medications and Allergies Home Medications Medication Instructions Recorded Confirmed Type famotidine 20 mg tablet 20 mg PO BID 02/08/23 12/28/23 History gabapentin 100 mg capsule 100 mg PO BID 02/08/23 12/28/23 History rosuvastatin 10 mg tablet 10 mg PO HS 02/08/23 12/28/23 History tamsulosin 0.4 mg capsule 0.4 mg PO BID 02/08/23 12/28/23 History fenofibric acid (choline) 135 mg 135 mg PO DAILY 02/09/23 12/28/23 History capsule,delayed release amiodarone 200 mg tablet 200 mg PO DAILY #30 tabs 12/01/23 12/29/23 Rx lisinopril 20 0.5 tab PO DAILY 12/28/23 12/29/23 History mg-hydrochlorothiazide 12.5 mg tablet metoprolol succinate 100 mg 100 mg PO HS 12/28/23 12/28/23 History tablet,extended release 24 hr pantoprazole 40 mg tablet,delayed See Rx Instructions .Route 12/30/23 Rx release .COMPLEX #45 tabs New Prescriptions to Start Prescriptions: pantoprazole Jayson Lemus Allergies Allergy/AdvReac Type Severity Reaction Status Date / Time No Known Allergies Allergy Verified 12/28/23 11:41 Discharge Plan Disposition Patient Disposition: Home, Self-Care Condition: Good Follow up Plan Follow up with: Rai Dai MD [Staff Physician] - 01/12/24 9:15 am Trae Lujan MD [Staff Physician] - 01/06/24 10:30 am Oral Jj MD [Staff Physician] - 01/07/24 1:00 pm Prescriptions/Medication Reconciliation: New pantoprazole 40 mg tablet,delayed release (DR/EC) See Rx Instructions .ROUTE .COMPLEX Qty: 45 0RF Rx Instructions: 40 mg orally twice daily for 2 weeks followed by once daily thereafter. Continued amiodarone 200 mg tablet 200 mg PO DAILY Qty: 30 3RF famotidine 20 mg tablet 20 mg PO BID Patient Comments: TAKE ONE TABLET BY MOUTH TWICE DAILY tamsulosin 0.4 mg capsule 0.4 mg PO BID Patient Comments: TAKE ONE CAPSULE BY MOUTH TWICE DAILY gabapentin 100 mg capsule 100 mg PO BID Patient Comments: TAKE ONE CAPSULE BY MOUTH TWICE DAILY MAY CAUSE DROWSINESS rosuvastatin 10 mg tablet 10 mg PO HS Patient Comments: TAKE ONE TABLET BY MOUTH EVERY DAY AT BEDTIME fenofibric acid (choline) 135 mg capsule,delayed release(DR/EC) 135 mg PO DAILY Patient Comments: TAKE ONE CAPSULE BY MOUTH EVERY DAY lisinopril-hydrochlorothiazide 20-12.5 mg tablet 0.5 tab PO DAILY metoprolol succinate 100 mg tablet extended release 24 hr 100 mg PO HS Discontinued Eliquis 5 mg tablet 5 mg PO BID Problem Reconciliation Problems Reviewed?: Yes Patient Discharge Instructions ACTIVITY: Continue current activity DIET: continue same diet Patient Instructions: Anemia, Gastrointestinal Bleeding Providers Primary Care Provider: Provider,Referral Admit Provider: Lee Peterson Attending Provider: Lee Peterson
[2023-12-30 07:48] VITALS: O2SAT 95
[2023-12-30] MEDS: GABAPENTIN 100MG CAPSULE 100 MG PO (08:38)
[2023-12-30] MEDS: FAMOTIDINE 20MG TABLET 20 MG PO (08:38)
[2023-12-30] MEDS: AMIODARONE 200MG TABLET 200 MG PO (08:38)
[2023-12-30] MEDS: LISINOPRIL/HCTZ 10-12.5MG TABLET 1 EACH PO (08:38)
[2023-12-30] MEDS: TAMSULOSIN 0.4MG CAPSULE 0.400000000000000022 MG PO (08:38)
[2023-12-30] MEDS: PANTOPRAZOLE 40MG VIAL 40 MG IV (08:39)
[2023-12-30] MEDS: SODIUM CHLORIDE 0.9% 10ML VIAL 10 ML IV (08:39)
--- NOTE | 2023-12-30 09:08 | HMH.PHAINT1 ---
Pharmacy Intervention Comments: DISCHARGE MEDICATION COUNSELING WAS PROVIDED TO PATIENT FOR PANTOPRAZOLE ON INDICATION, DOSE, AND POSSIBLE SIDE EFFECTS; WELL STOPPING THE ELIQUIS. THE PRESCRIPTION IS BEING FILL AT CLINIC PHARMACY. THE PATIENT VERBALIZED UNDERSTANDING AND HAD NO FURTHER QUESTIONS.
--- NOTE | 2023-12-30 10:55 | EXP.CARD.PN ---
Subjective Subjective Date: 12/30/23 Time: 08:30 Principal diagnosis: acute anemia, GIB Interval history: The patient states that he is feeling better this morning. He states that he has not really done much to be too short of breath at all. He states that his fatigue has improved significantly. He denies any chest pain or pressure. He denies any fever, chills, nausea, vomiting, diarrhea, PND or orthopnea. The patient did undergo EGD yesterday which showed no source of bleeding. They will consider proceeding with a colonoscopy at his follow-up. The patient's anticoagulation with Eliquis has been stopped. Will also hold off on aspirin at this time as well. Exam Data for Last 24 hours Vital signs and Labs for Last 24 Hours: Temp Pulse Resp BP Pulse Ox O2 Del Method O2 Flow Rate 97.6 F 79 18 112/62 95 Room Air 5 12/30/23 07:24 12/30/23 07:24 12/30/23 07:24 12/30/23 07:24 12/30/23 07:48 12/30/23 09:00 12/29/23 11:28 Laboratory Results - last 24 hr 12/29/23 12:55: Hgb 7.3 L, Hct 23.1 L 12/30/23 05:47: WBC 5.5, RBC 3.37 L, Hgb 7.9 L, Hct 26.2 L, MCV 77.7 L, MCH 23.5 L, MCHC 30.2 L, RDW 16.4, Plt Count 220, MPV 9.9, Neut % (Auto) 63.6, Lymph % (Auto) 22.4, [place] % (Auto) 7.7, Eos % (Auto) 5.1, Baso % (Auto) 1.2, Neut # (Auto) 3.5, Lymph # (Auto) 1.2, [place] # (Auto) 0.4, Eos # (Auto) 0.3, Baso # (Auto) 0.1, Sodium 138, Potassium 3.3 L, Chloride 108 H, Carbon Dioxide 29, Anion Gap 4.3 L, BUN 17, Creatinine 1.80 H, Estimated Creat Clear 44, Estimated GFR 36 L, Est GFR ( Amer) 44 L, Glucose 110 H, Calcium 8.7 I & O for Last 24 hours: Intake & Output 12/27/23 12/28/23 12/29/23 12/30/23 23:59 23:59 23:59 23:59 Intake Total 1100 / 1100 460 / 460 Output Total 0 / 0 0 / 0 Balance 0 / 0 1099 1100 459 / 459 Weight 214 lb 5 oz 211 lb 8 oz 211 lb 9.6 oz Constitutional Constitutional: no acute distress and average body habitus *Routine HEENT Exam Head: Present normocephalic and atraumatic ENT: Present mucous membranes moist *Routine Neck Exam Neck: Present supple, full ROM and normal carotid upstroke; Absent JVD, carotid bruit or lymphadenopathy *Routine Respiratory Exam Respiratory: Present CTA bilaterally, normal respiratory effort, able to speak in complete sentences and symmetric chest movement *Routine Cardiovascular Exam Cardiovascular: Present RRR, Normal S1 and Normal S2; Absent murmur or gallop *Routine Abdominal Exam Abdominal: Present soft and normoactive bowel sounds; Absent tenderness, distended or organomegaly *Routine Extremities Exam Extremities: Present full ROM, pulses intact and normal capillary refill; Absent cyanosis, clubbing or edema *Routine Skin Exam Skin: Present intact and warm; Absent erythema *Routine Neurological Exam Neurological: Present alert, oriented X3 and CN II-XII intact; Absent sensory deficit or motor deficit Routine Psychiatric Exam Psychiatric: Present normal affect Progress Note: A&P Assessment and plan (1) Acute anemia: Status: Acute (2) GI bleed: Status: Acute (3) Gastritis: Status: Acute (4) Chronic Kidney Disease: Status: Chronic (5) Pacemaker: Status: Acute (6) On amiodarone therapy: Status: Acute (7) Hypertension: Status: Acute (8) Sick sinus syndrome: Status: Acute (9) Hyperlipidemia: Status: Acute (10) CHF (congestive heart failure): Status: Acute (11) Stented coronary artery: Status: Acute (12) Coronary artery disease: Status: Acute (13) Paroxysmal atrial fibrillation: Status: Acute Assessment and Plan Assessment and Plan for All Diagnoses:: Plan: 1. The patient was admitted to the hospital due to acute anemia and a GI bleed. Patient underwent EGD yesterday. No active signs of bleeding noted. He does have gastritis. They will consider a colonoscopy on an outpatient basis once he is discharged from the hospital. Will defer. 2. The patient does have paroxysmal atrial fibrillation. He has had no evidence of atrial fibrillation on his last several pacemaker interrogations. Will continue to hold Eliquis at this time due to his recent GI bleed. 3. We will also continue to hold aspirin at this time due to his acute bleed. Once he has recovered from his acute bleed and his anemia has improved then we can restart aspirin 81 mg daily at that time which she has tolerated well in the past. 4. The patient does have a history of paroxysmal atrial fibrillation. Continue amiodarone for atrial fibrillation suppression at this time. 5. Will refer the patient for consideration of a watchman's device on an outpatient basis once he has recovered from his anemia since he is not going to be able to take anticoagulation due to a GI bleed on it. He also has a history of a spontaneous subdural bleed so that is why he has historically not been on oral anticoagulation. 6. Coronary artery disease is present. He denies any chest pain or pressure. No plans for invasive left cardiac catheterization at this time. 7. His blood pressure is acceptable. 8. His LDL goal is less than 55. His LDL is 77. He is on a statin. 9. The patient is status post permanent pacemaker placement secondary to sick sinus syndrome. 10. The patient's chronic kidney disease is stable. His creatinine is 1.6 today 11. No further recommendations at this time from a cardiac standpoint. The patient is stable for discharge home today from a cardiac standpoint. The patient will need to follow-up in 1 week on an outpatient basis in cardiology clinic. Thank you for the opportunity to help participate in the care of this patient. All recommendations and orders are per Dr. Jj.
--- NOTE | 2023-12-31 14:11 | CARE MANAGER ---
Called and spoke with patient regarding recent discharge. Patient stated that he is doing well, has made changes to medications prescribed at discharge, and aware of scheduled f/u appts.
== END 2023-12-30 10:35 | disposition home or self-care (01) ==
LOC: ER 16:13 → 2ND 16:50
PROVIDERS: Surgery; Admitting Provider Internal Medicine; Emergency Provider Student in an Organized Health Care Education/Training Program; Visit Provider Internal Medicine
PROC: 0DJ08ZZ Inspection of Upper Intestinal Tract, Via Natural or Artificial Opening Endoscopic (ICD-10-PCS; CPT 43235; principal; 2023-12-29 11:30)
DX: D50.8 Other iron deficiency anemias (principal); K92.2 Gastrointestinal hemorrhage, unspecified; N28.9 Disorder of kidney and ureter, unspecified; I50.9 Heart failure, unspecified; I25.10 Atherosclerotic heart disease of native coronary artery without angina pectoris; I48.0 Paroxysmal atrial fibrillation; Z95.0 Presence of cardiac pacemaker; Z79.899 Other long term (current) drug therapy; I49.5 Sick sinus syndrome; N18.4 Chronic kidney disease, stage 4 (severe); E78.2 Mixed hyperlipidemia; R06.02 Shortness of breath; K29.70 Gastritis, unspecified, without bleeding; Z95.5 Presence of coronary angioplasty implant and graft; I13.0 Hypertensive heart and chronic kidney disease with heart failure and stage 1 through stage 4 chronic kidney disease, or unspecified chronic kidney disease; K22.4 Dyskinesia of esophagus; K29.50 Unspecified chronic gastritis without bleeding; K92.1 Melena
CPT/HCPCS: 43235; 36415; 71045; 80048; 80053; 82272; 82728; 83540; 83550; 83880; 84439; 84443; 84484; 85014; 85018; 85025; 85378; 85610; 85730; 86850; 93005; 99291; G0328; G0378; J1756

== ENCOUNTER 2024-01-06 10:56 | Outpatient (CLI) | payer MEDICARE, SELFPAY ==
[2024-01-06 11:10] VITALS: BP 119/68; PULSE 72; RESP 18; O2SAT 96
[2024-01-06] MEDS: IRON SUCROSE COMPLEX 200 MG in 0.9 % SODIUM CHLORIDE 100 ML 220 MG IV (11:10)
[2024-01-06] MEDS: SODIUM CHLORIDE 0.9% 10ML FLUSH SYRINGE 10 ML IV (11:10)
[2024-01-06] MEDS: SODIUM CHLORIDE 0.9% 50ML BAG 50 ML IV (11:10)
[2024-01-06 11:40] VITALS: BP 121/72; PULSE 69; O2SAT 98
== END 2024-01-06 11:45 | disposition home or self-care (01) ==
LOC: INF 10:57
PROVIDERS: PCP Internal Medicine; Visit Provider Internal Medicine Medical Oncology
DX: D50.9 Iron deficiency anemia, unspecified (principal)
CPT/HCPCS: 96365; J1756

== ENCOUNTER 2024-01-07 13:54 | Outpatient (CLI) | payer MEDICARE, SELFPAY ==
[2024-01-07 14:56] LABS: Basophils # 0.1 K/mm3 (0-0.2); Basophils % 1.1 % (0.1-2.0); Eosinophils # 0.2 K/mm3 (0.0-0.4); Eosinophils % 3.7 % (0.1-12.0); Hemoglobin 8.4 g/dL (14.1-18.0); Lymphocytes # 1.3 K/mm3 (0.7-4.5); Lymphocytes % 21.9 % (10-50); Mean Corpuscular HGB Conc 31.2 g/dL (31.8-35.4); Mean Corpuscular Hemoglobin 24.1 pg (27.0-31.2); Mean Corpuscular Volume 77.5 fl (80-94); Mean Platelet Volume 9.8 fl (7.4-10.4); Monocytes # 0.5 K/mm3 (0.1-1.0); Monocytes % 8.5 % (1.7-9.3); Neutrophils # 3.8 K/mm3 (1.8-7.8); Neutrophils % 64.8 % (37.0-80.0); Platelet Count 220 K/mm3 (142-424); Red Blood Count 3.48 M/mm3 (4.60-6.20); Red Cell Distribution Width 17.5 % (11.5-17.5); White Blood Count 5.8 K/mm3 (4.8-10.8)
[2024-01-07 15:05] LABS: Chloride 106 mmol/L (98-107); Potassium 3.6 mmoL/L (3.5-5.1); Sodium 139 mmol/L (136-145)
[2024-01-07 15:08] LABS: Anion Gap 9.6 mEq/L (5-15); Blood Urea Nitrogen 23 mg/dl (9-20); Calcium 8.9 mg/dl (8.4-10.2); Carbon Dioxide 27 mmol/L (22.0-30.0); Estimated Glomerular Filt Rate 26 ml/min (>60); GFR (African American) 32 ML/MIN (>60); Glucose 109 mg/dl (74-100)
== END 2024-01-07 23:59 | disposition home or self-care (01) ==
LOC: LAB 13:55
PROVIDERS: PCP Internal Medicine; Visit Provider Internal Medicine
DX: K92.2 Gastrointestinal hemorrhage, unspecified (principal); D64.9 Anemia, unspecified; K21.9 Gastro-esophageal reflux disease without esophagitis
CPT/HCPCS: 36415; 80048; 85025

== ENCOUNTER 2024-01-12 10:22 | Outpatient (CLI) | payer MEDICARE, SELFPAY ==
[2024-01-12 10:50] VITALS: BP 151/80; PULSE 71; RESP 16; TEMP 36.8; O2SAT 100
[2024-01-12] MEDS: IRON SUCROSE COMPLEX 200 MG in 0.9 % SODIUM CHLORIDE 100 ML 220 MG IV (10:50)
[2024-01-12] MEDS: SODIUM CHLORIDE 0.9% 10ML FLUSH SYRINGE 10 ML IV (10:50)
[2024-01-12] MEDS: SODIUM CHLORIDE 0.9% 50ML BAG 50 ML IV (10:50)
[2024-01-12 11:35] VITALS: BP 163/77; PULSE 71; RESP 16; TEMP 36.8; O2SAT 99
== END 2024-01-12 11:40 | disposition home or self-care (01) ==
PROVIDERS: PCP Internal Medicine; Visit Provider Internal Medicine Medical Oncology
DX: D50.0 Iron deficiency anemia secondary to blood loss (chronic) (principal)
CPT/HCPCS: 96365; J1756

== ENCOUNTER 2024-01-19 10:03 | Outpatient (CLI) | payer MEDICARE, SELFPAY ==
[2024-01-19] MEDS: IRON SUCROSE COMPLEX 200 MG in 0.9 % SODIUM CHLORIDE 100 ML 220 MG IV (10:23)
[2024-01-19] MEDS: SODIUM CHLORIDE 0.9% 50ML BAG 50 ML IV (10:23)
[2024-01-19] MEDS: SODIUM CHLORIDE 0.9% 10ML FLUSH SYRINGE 10 ML IV (10:24)
[2024-01-19 10:30] VITALS: BP 120/64; PULSE 72; RESP 18; TEMP 36.8; O2SAT 99
[2024-01-19 11:10] VITALS: BP 115/60; PULSE 71; RESP 18; O2SAT 99
== END 2024-01-19 11:15 | disposition home or self-care (01) ==
LOC: INF 10:03
PROVIDERS: PCP Internal Medicine; Visit Provider Internal Medicine Medical Oncology
DX: D50.0 Iron deficiency anemia secondary to blood loss (chronic) (principal)
CPT/HCPCS: 96365; J1756

== ENCOUNTER 2024-01-26 10:11 | Outpatient (CLI) | payer MEDICARE, SELFPAY ==
[2024-01-26 10:33] VITALS: BP 122/64; PULSE 72; RESP 18; O2SAT 100
[2024-01-26] MEDS: SODIUM CHLORIDE 0.9% 50ML BAG 50 ML IV (10:33)
[2024-01-26] MEDS: IRON SUCROSE COMPLEX 200 MG in 0.9 % SODIUM CHLORIDE 100 ML 220 MG IV (10:33)
[2024-01-26 11:09] VITALS: BP 146/71; PULSE 70; RESP 18; O2SAT 100
== END 2024-01-26 11:09 | disposition home or self-care (01) ==
LOC: INF 10:12
PROVIDERS: PCP Internal Medicine; Visit Provider Internal Medicine Medical Oncology
DX: D50.0 Iron deficiency anemia secondary to blood loss (chronic) (principal)
CPT/HCPCS: 96365; J1756

== ENCOUNTER 2024-02-04 06:47 | Day surgery (SDC) | payer MEDICARE, SELFPAY ==
[2024-02-04 07:05] VITALS: BP 129/61; PULSE 69; RESP 18; TEMP 36.3; O2SAT 98; BMI 26.9
[2024-02-04] MEDS: LACTATED RINGERS 1000ML 1,000 ML 25 ML IV (07:05)
--- NOTE | 2024-02-04 07:11 | P.PNANES_ITS ---
[facility] Disclaimer: The information contained in this section may have been updated after the patient was seen, as this information can be updated by other users. Medical History Chronic Kidney Disease GERD (gastroesophageal reflux disease) Anemia Tinnitus Hearing loss Sick sinus syndrome Tachy-kirit syndrome Abnormal electrocardiogram [ECG] [EKG] Hyperlipidemia Coronary artery disease Paroxysmal atrial fibrillation SDH (subdural hematoma) Cataract BPH (benign prostatic hyperplasia) Hypertension [place] (acute kidney injury) CHF (congestive heart failure) Surgical History Hip joint replacement status Stented coronary artery Family History Other No significant family history Social History (Updated 02/04/24 @ 07:02 by Tran White RN) Smoking Status: Former smoker alcohol intake: never substance use type: denies use current occupational status: retired and other Travel in the last 8 weeks: None [facility] Anesthesia Checklist Patient Identification Patient Identification: Arm Band Structural Data Admitted From: Home Planned Operative Procedure/s: Colonoscopy Consent for Planned Operative Procedure(s) Verified: Yes Verified Documents: Surgical Consent and History and Physical NPO Status Verified Time NPO: 00:00 Additional verifications Anesthesia Reactions: No Airway Assessment Mallampati Score:: Class II C-Spine Mobility Assessed: Yes TMJ Mobility Assessed: Yes Dentition: Good Dentition Neurological Assessment Level of Consciousness: Awake, Alert and Appropriate Anesthesia Plan Anesthesia Risk discussed: Yes Anesthesia Plan: Verified ASA Class: III Anesthesia Type: MAC
[2024-02-04 07:30] VITALS: O2SAT 98
--- NOTE | 2024-02-04 08:30 | HMH.SCOPE ---
Procedure: Date: 02/04/24 Patient Date of :: 1940 Procedure Performed:: Total colonoscopy to terminal ileum with multiple polypectomy Indications:: Patient presents for colonoscopy. Patient is an 83-year-old male with history of hypertension, renal insufficiency, sick sinus syndrome, pacemaker placement, congestive heart failure, coronary artery disease with stenting, history of paroxysmal atrial fibrillation, stage IV chronic kidney disease. He has a history of previous subdural hematoma. He had been placed on Eliquis by cardiology in [place] several months ago. He had been diagnosed with anemia subsequently. He had developed progressive shortness of air and he was found to have a hemoglobin of 7.6 after evaluation by outpatient cardiology and he was sent to the emergency department at which time he was admitted on 12/28/2023. Baseline hemoglobin approximately 13. He underwent upper endoscopy on 12/29/2023 which revealed mild esophageal dysmotility, gastroesophageal junction at 45 cm, moderate nonerosive antral gastritis. He did not require any blood transfusion but did have iron infusion. He has followed up with cardiology who is considering watchman's device. Patient has an appointment with Dr. Sexton today on 01/12/2024. He did have CBC checked on 01/07/2024 which revealed a hemoglobin of 8.4. He feels better. His energy is better. He has never had prior colonoscopy. Of note, Dr. iMller Griffith is his 's cousin. . Performing Provider:: Rai Dai MD Referring Provider:: . Sedation:: MAC sedation . Procedure:: Patient history was obtained and appropriate physical examination was performed. Patient's medications and allergies were reviewed. Informed consent was obtained after explaining the benefits, alternatives, and risks of the procedure including, but not limited to, bleeding, perforation, missed lesions, and adverse reaction to anesthesia medications. Patient was transported to endoscopy procedure room. Patient was connected to monitoring devices. Throughout the procedure the patient's blood pressure, pulse, and oxygen saturations were monitored continuously. Patient identification and planned procedure were verified by the staff. Patient was positioned in lateral decubitus position. Digital anorectal exam was performed. Variable stiffness Olympus colonoscope was inserted and advanced under direct visualization to the cecum. Adequacy of the colonic preparation was noted. The colonoscope was advanced a short distance into the terminal ileum. The colonoscope was then slowly withdrawn while carefully examining the color, texture, anatomy, and integrity of the mucosoa circumferentially. Within the rectum retroflexion was performed. Colonoscope was then withdrawn. Impression: Colonic preparation was good although there was some liquid and occasionally particulate stool throughout the colon. This was able to be cleared. In the ascending colon distal to the ileocecal valve there was a moderate sessile elongated polyp removed with hot snare. In near the hepatic flexure there was a sessile polyp partially removed with hot snare. Residual polypoid tissue was removed with cold snare and biopsy forceps. At the splenic flexure there was a tiny diminutive polyp removed with biopsy forceps. In the descending colon there was a polyp removed with cold snare. Sigmoid colon there was a polyp removed with cold snare. In the sigmoid colon he had moderate diverticulosis. . Findings:: Polyps as noted above, several sessile polyps Sigmoid diverticulosis . Recommendations:: No evidence on colonoscopy that would explain his anemia. This could be multifactorial. Possibly related to stage IV kidney disease. Recommend repeat colonoscopy likely 2 years pending pathology. Complications:: None immediately apparent Estimated blood obtained (mL): 2 Colonoscopy Component Colonoscopy Component Was a colonoscopy performed during today's procedure?: Yes Recommended follow up colonoscopy of at least 10 years?: No If no, follow up colonoscopy recommended in ___ years?: 2 Reason for not recommending >/= 10 yr follow-up interval?: See above
[2024-02-04 08:32] VITALS: BP 80/54; PULSE 72; RESP 18; TEMP 36.5; O2SAT 98
[2024-02-04 08:42] VITALS: BP 83/46; PULSE 72; RESP 18; TEMP 36.5; O2SAT 98
[2024-02-04 08:52] VITALS: BP 92/52; PULSE 70; RESP 18; O2SAT 95
[2024-02-04 09:02] VITALS: BP 122/51; PULSE 72; RESP 18; O2SAT 99
== END 2024-02-04 09:02 | disposition home or self-care (01) ==
PROVIDERS: PCP Internal Medicine; Visit Provider Surgery
PROC: 0DJD8ZZ Inspection of Lower Intestinal Tract, Via Natural or Artificial Opening Endoscopic (ICD-10-PCS; CPT 45378; principal; 2024-02-04 07:30)
DX: Z12.11 Encounter for screening for malignant neoplasm of colon (principal); K57.90 Diverticulosis of intestine, part unspecified, without perforation or abscess without bleeding; D12.2 Benign neoplasm of ascending colon; D12.3 Benign neoplasm of transverse colon; D12.4 Benign neoplasm of descending colon; D12.5 Benign neoplasm of sigmoid colon; D64.9 Anemia, unspecified
CPT/HCPCS: 45380; 45385; 88305; J2704

== ENCOUNTER 2024-02-09 09:11 | Outpatient (CLI) | payer MEDICARE, SELFPAY ==
[2024-02-09 09:15] VITALS: BMI 28.2
--- NOTE | 2024-02-09 09:25 | PC.NURSE ---
0925-collected labs via venipuncture stick in right hand with butterfly needle.
[2024-02-09 09:35] LABS: Basophils # 0.1 K/mm3 (0-0.2); Basophils % 1.7 % (0.1-2.0); Eosinophils # 0.2 K/mm3 (0.0-0.4); Hemoglobin 10.7 g/dL (14.1-18.0); Lymphocytes # 0.9 K/mm3 (0.7-4.5); Lymphocytes % 15.8 % (10-50); Mean Corpuscular HGB Conc 30.6 g/dL (31.8-35.4); Mean Corpuscular Hemoglobin 25.4 pg (27.0-31.2); Monocytes # 0.3 K/mm3 (0.1-1.0); Monocytes % 5.7 % (1.7-9.3); Neutrophils % 72.8 % (37.0-80.0); Platelet Count 177 K/mm3 (142-424); Red Blood Count 4.22 M/mm3 (4.60-6.20); Red Cell Distribution Width 21.5 % (11.5-17.5); White Blood Count 5.5 K/mm3 (4.8-10.8)
== END 2024-02-09 09:26 | disposition home or self-care (01) ==
LOC: INF 09:12
PROVIDERS: PCP Internal Medicine; Visit Provider Internal Medicine Medical Oncology
DX: D50.0 Iron deficiency anemia secondary to blood loss (chronic) (principal)
CPT/HCPCS: 36415; 85025

== ENCOUNTER 2024-03-22 09:06 | Outpatient (CLI) | payer MEDICARE, SELFPAY ==
[2024-03-22 09:10] VITALS: BMI 23.3
--- NOTE | 2024-03-22 09:16 | PC.NURSE ---
0916-collected labs via venipuncture stick in right hand with butterfly needle;pt to appointment.
[2024-03-22 09:35] LABS: Basophils # 0.1 K/mm3 (0-0.2); Basophils % 1.6 % (0.1-2.0); Eosinophils # 0.2 K/mm3 (0.0-0.4); Eosinophils % 2.8 % (0.1-12.0); Hematocrit 38.2 % (42.0-52.0); Hemoglobin 12.3 g/dL (14.1-18.0); Lymphocytes # 1.9 K/mm3 (0.7-4.5); Lymphocytes % 31.1 % (10-50); Mean Corpuscular Volume 84.2 fl (80-94); Mean Platelet Volume 8.6 fl (7.4-10.4); Monocytes # 0.3 K/mm3 (0.1-1.0); Monocytes % 4.6 % (1.7-9.3); Neutrophils # 3.6 K/mm3 (1.8-7.8); Neutrophils % 59.8 % (37.0-80.0); Platelet Count 216 K/mm3 (142-424); Red Blood Count 4.54 M/mm3 (4.60-6.20); Red Cell Distribution Width 20.9 % (11.5-17.5)
[2024-03-22 09:41] LABS: Iron 92 ug/dL (49-181)
[2024-03-22 09:51] LABS: Total Iron Binding Capacity 313 ug/dL (261-462)
[2024-03-22 10:19] LABS: Ferritin 57.1 ng/ml (17.9-464)
== END 2024-03-22 09:17 | disposition home or self-care (01) ==
LOC: INF 09:07
PROVIDERS: PCP Internal Medicine; Visit Provider Internal Medicine Medical Oncology
DX: D50.9 Iron deficiency anemia, unspecified (principal)
CPT/HCPCS: 36415; 82728; 83540; 83550; 85025

== ENCOUNTER 2024-04-01 08:04 | Outpatient (CLI) | payer MEDICARE, SELFPAY ==
--- NOTE | 2024-04-01 08:10 | FL_ITS ---
FINAL REPORT CLINICAL HISTORY: anemia 1.05 min DAP 2246.70 FINDINGS: SMALL BOWEL FOLLOW THROUGH HISTORY: Anemia. PROCEDURE: The patient ingested barium. Spot and overhead films were obtained. A total of 17 images were saved. FINDINGS: The cooky packer film is unremarkable . The transit time to the colon is normal . Contrast reaches the colon at 1.5 hours. The mucosal fold pattern is normal . Spot images of the terminal ileum are unremarkable . Radiation exposure in DAP: 2246.70 uGy.m2 Fluoroscopy time: 1 minute 5 seconds IMPRESSION: Normal small bowel follow-through . Reviewed, Interpreted and Dictated by Rai Maldonado III, MD Transcribed by Leola Ramos PA-C Authenticated and [facility]
[2024-04-01] MEDS: DIATRIZOATE MEG 66% & DIATRIZOATE NA 10% 30ML UDC 15 ML PO (08:33)
[2024-04-01] MEDS: BARIUM SULFATE(LIQUID E-Z-PAQUE);355ML BOTTLE 355 ML PO (08:33)
== END 2024-04-01 23:59 | disposition home or self-care (01) ==
LOC: RAD 08:05
PROVIDERS: PCP Internal Medicine; Visit Provider Internal Medicine Medical Oncology
DX: D50.9 Iron deficiency anemia, unspecified (principal)
CPT/HCPCS: 74250; Q9963

== ENCOUNTER 2024-06-07 11:25 | Outpatient (CLI) | payer MEDICARE, SELFPAY ==
[2024-06-07 11:28] VITALS: BMI 26.9
--- NOTE | 2024-06-07 11:30 | PC.NURSE ---
STUCK PT WITH A BUTTERFLY NEEDLE IN THE LAC. BLOOD RETURN NOTED. COLLECTED PURPLE TOP, GOLD TOP, GREEN TOP, AND RED TOP AND SENT TO LAB. ORDERS PLACED. PT TOLERATED WELL. 2X2S AND COBAN APPLIED. BLEEDING CONTROLLED. NO QUESTIONS OR CONCERNS VOICED BY PT.
[2024-06-07 11:39] LABS: Basophils # 0.1 K/mm3 (0-0.2); Basophils % 1.3 % (0.1-2.0); Eosinophils # 0.2 K/mm3 (0.0-0.4); Eosinophils % 3.5 % (0.1-12.0); Hematocrit 40.5 % (42.0-52.0); Hemoglobin 12.7 g/dL (14.1-18.0); Lymphocytes # 1.5 K/mm3 (0.7-4.5); Lymphocytes % 24.2 % (10-50); Mean Corpuscular HGB Conc 31.4 g/dL (31.8-35.4); Mean Corpuscular Hemoglobin 29.1 pg (27.0-31.2); Mean Corpuscular Volume 92.5 fl (80-94); Mean Platelet Volume 8.5 fl (7.4-10.4); Monocytes # 0.4 K/mm3 (0.1-1.0); Monocytes % 6.4 % (1.7-9.3); Neutrophils # 3.9 K/mm3 (1.8-7.8); Neutrophils % 64.6 % (37.0-80.0); Platelet Count 188 K/mm3 (142-424); Red Blood Count 4.37 M/mm3 (4.60-6.20); Red Cell Distribution Width 15.6 % (11.5-17.5)
[2024-06-07 11:53] LABS: Iron 85 ug/dL (49-181)
[2024-06-07 12:02] LABS: Total Iron Binding Capacity 380 ug/dL (261-462)
[2024-06-07 12:30] LABS: Ferritin 37.2 ng/ml (17.9-464)
== END 2024-06-07 11:32 | disposition home or self-care (01) ==
LOC: INF 11:27
PROVIDERS: PCP Internal Medicine; Visit Provider Internal Medicine Medical Oncology
DX: D64.9 Anemia, unspecified (principal)
CPT/HCPCS: 36415; 82728; 83540; 83550; 85025

== ENCOUNTER 2024-07-25 12:10 | Outpatient (CLI) | payer MEDICARE, SELFPAY ==
[2024-07-25 17:01] LABS: Basophils # 0.1 K/mm3 (0-0.2); Basophils % 1.7 % (0.1-2.0); Eosinophils # 0.2 K/mm3 (0.0-0.4); Eosinophils % 3.4 % (0.1-12.0); Hematocrit 40.3 % (42.0-52.0); Hemoglobin 13.3 g/dL (14.1-18.0); Lymphocytes # 1.3 K/mm3 (0.7-4.5); Lymphocytes % 20.4 % (10-50); Mean Corpuscular Hemoglobin 29.5 pg (27.0-31.2); Mean Corpuscular Volume 89.4 fl (80-94); Mean Platelet Volume 9.5 fl (7.4-10.4); Monocytes # 0.4 K/mm3 (0.1-1.0); Monocytes % 6.5 % (1.7-9.3); Neutrophils # 4.5 K/mm3 (1.8-7.8); Neutrophils % 68.1 % (37.0-80.0); Platelet Count 179 K/mm3 (142-424); Red Blood Count 4.51 M/mm3 (4.60-6.20); Red Cell Distribution Width 14.6 % (11.5-17.5); White Blood Count 6.5 K/mm3 (4.8-10.8)
[2024-07-25 17:58] LABS: Erythrocyte Sedimentation Rate 17 mm/hr (0-20)
== END 2024-07-25 23:59 | disposition home or self-care (01) ==
LOC: LAB.DROPOF 07-26 12:10
PROVIDERS: PCP Internal Medicine; Visit Provider Internal Medicine
DX: R51.9 Headache, unspecified (principal); I10 Essential (primary) hypertension; H93.19 Tinnitus, unspecified ear; H61.23 Impacted cerumen, bilateral
CPT/HCPCS: 85025; 85651

== ENCOUNTER 2024-08-18 12:04 | Emergency (ER) | payer MEDICARE, SELFPAY ==
[2024-08-18 12:05] VITALS: BP 146/69; PULSE 73; RESP 20; TEMP 37.3; O2SAT 99; BMI 26.4
--- NOTE | 2024-08-18 12:13 | ED_ITS ---
Discharge Plan Disposition Patient Disposition: Home, Self-Care Condition: Good Prescriptions Prescriptions: New Paxlovid 300 mg (150 mg x 2)-100 mg tablets,dose pack See Rx Instructions .ROUTE .COMPLEX Qty: 30 0RF Rx Instructions: take TWO 150 mg tablets of nirmatrelvir with ONE 100 mg tablet of ritonavir twice daily for 5 days No Action doxycycline hyclate 100 mg capsule 100 mg PO BID Qty: 30 1RF amiodarone 200 mg tablet 200 mg .ROUTE .COMPLEX Qty: 90 1RF Rx Instructions: 200 mg; gabapentin 100 mg capsule 100 mg PO BID Qty: 180 0RF rosuvastatin 10 mg tablet See Rx Instructions .ROUTE .COMPLEX Qty: 90 1RF Dose Instruction: TAKE ONE TABLET BY MOUTH EVERY DAY AT BEDTIME Rx Instructions: TAKE ONE TABLET BY MOUTH EVERY DAY AT BEDTIME fenofibric acid (choline) 135 mg capsule,delayed release(DR/EC) See Rx Instructions .ROUTE .COMPLEX Qty: 90 1RF Dose Instruction: TAKE ONE CAPSULE BY MOUTH EVERY DAY Rx Instructions: TAKE ONE CAPSULE BY MOUTH EVERY DAY tamsulosin 0.4 mg capsule See Rx Instructions .ROUTE .COMPLEX Qty: 180 1RF Dose Instruction: TAKE ONE CAPSULE BY MOUTH TWICE DAILY Rx Instructions: TAKE ONE CAPSULE BY MOUTH TWICE DAILY famotidine 20 mg tablet See Rx Instructions .ROUTE .COMPLEX Qty: 180 1RF Dose Instruction: TAKE ONE TABLET BY MOUTH TWICE DAILY Rx Instructions: TAKE ONE TABLET BY MOUTH TWICE DAILY metoprolol succinate 50 mg tablet extended release 24 hr See Rx Instructions .ROUTE .COMPLEX Qty: 90 3RF Dose Instruction: TAKE ONE TABLET BY MOUTH EVERY DAY Rx Instructions: TAKE ONE TABLET BY MOUTH EVERY DAY Referrals Follow up/Referrals: Trae Lujan MD [Primary Care Provider] - See instructions Activity Restrictions/Add. Instructions Additional Instructions/Restrictions: Follow-up with your PCP if no improvement or worsening signs or symptoms or return to the ER as needed. Please take your Paxlovid as prescribed. Please speak to the pharmacist about the medication interactions with the current medicines that you are on. Clinical Impressions Clinical Impression: Acute COVID-19 Instructions Patient Instructions: DI for COVID-19 (Suspected or Confirmed ) Print Language Print Language: Khmer Discharge ED Provider: Darius Fleming General Adult HPI <DEBBY Blackwell - Last Filed: 08/18/24 13:40> General Chief complaint: Upper Respiratory Infection Stated complaint: covid postive Time Seen by Provider: 08/18/24 12:10 History of Present Illness HPI narrative: Patient presents for evaluation of being COVID-positive. Patient has had cough feeling poorly subjective fever for 2 days. He took a COVID test today at home which was positive. He came to the ER because he has a Watchman procedure scheduled for Thursday and wanted to confirm. He denies chest pain shortness of breath hemoptysis hematochezia melena nausea vomiting diarrhea. He is fully vaccinated against COVID. Related Data Previous Rx's ?Medication ?Instructions ?Recorded doxycycline hyclate 100 mg capsule 100 mg PO BID #30 caps 03/16/24 rosuvastatin 10 mg tablet See Rx Instructions .Route 04/04/24 .COMPLEX #90 tabs fenofibric acid (choline) 135 mg See Rx Instructions .Route 04/20/24 capsule,delayed release .COMPLEX #90 caps famotidine 20 mg tablet See Rx Instructions .Route 05/04/24 .COMPLEX #180 tabs tamsulosin 0.4 mg capsule See Rx Instructions .Route 05/04/24 .COMPLEX #180 caps amiodarone 200 mg tablet 200 mg .Route .COMPLEX #90 tabs 08/01/24 gabapentin 100 mg capsule 100 mg PO BID #180 caps 08/01/24 metoprolol succinate 50 mg See Rx Instructions .Route 08/15/24 tablet,extended release 24 hr .COMPLEX #90 tabs nirmatrelvir 300 mg (150 mg See Rx Instructions PO .COMPLEX 08/18/24 x2)-ritonavir 100 mg tablet,dose #30 tabs pack (Paxlovid) Allergies Allergy/AdvReac Type Severity Reaction Status Date / Time No Known Allergies Allergy Verified 08/11/24 08:51 [facility] <DEBBY Blackwell - Last Filed: 08/18/24 13:40> [facility] Disclaimer: The information contained in this section may have been updated after the patient was seen, as this information can be updated by other users. Medical History Chronic Kidney Disease GERD (gastroesophageal reflux disease) Anemia Iron deficiency anemia related to Eliquis therapy, resolved Tinnitus Hearing loss Sick sinus syndrome Tachy-kirit syndrome Abnormal electrocardiogram [ECG] [EKG] Hyperlipidemia Coronary artery disease Paroxysmal atrial fibrillation SDH (subdural hematoma) Cataract BPH (benign prostatic hyperplasia) Hypertension CASTILLO (acute kidney injury) CHF (congestive heart failure) Surgical History Hip joint replacement status Stented coronary artery Family History Other No significant family history Social History Smoking Status: Never smoker alcohol intake: never substance use type: denies use current occupational status: retired and other Other Medical History Have you received the Flu Vaccine for this season: No (Already received) Have you received the Pneumonia Vaccine: No <DEBBY Blackwell - Last Filed: 08/18/24 13:40> ROS Obtained: Yes Systems reviewed as appropriate & no additional complaints ex cept as documented Physical Exam <DEBBY Blackwell - Last Filed: 08/18/24 13:40> General General appearance: alert and in no apparent distress Respiratory Respiratory exam: Present normal lung sounds bilaterally Cardiovascular Cardiovascular exam: Present regular rate Neurological Exam Neurological exam: Present alert and oriented X3 Medical Decision Making <DEBBY Blackwell - Last Filed: 08/18/24 13:40> Medical Records Medical records reviewed: Yes I reviewed the patient's medical records. Screening: Per USPSTF and CDC recommendations, given the prevalence of disease in our region, it is our hospital?s policy to screen for HIV and viral Hepatitis for all patients aged 18 and over and those with ongoing risk factors. Carlos Inquiry Pt receiving controlled substance: No Vital Signs: 08/18/24 12:05 08/18/24 12:30 08/18/24 13:00 Temperature 99.1 F Temperature Source Oral Pulse Rate 70 79 Pulse Rate [Right Brachial] 73 Respiratory Rate 20 Blood Pressure 121/65 134/71 Blood Pressure [Right Arm] 146/69 H Blood Pressure Mean [Right Arm] 94 Blood Pressure Source [Right Arm] Automatic Cuff Blood Pressure Position [Right Arm] Supine 02 Sat by Pulse Oximetry 99 98 97 Oxygen Delivery Method Room Air Room Air 08/18/24 13:30 08/18/24 13:48 Temperature 99.1 F Temperature Source Pulse Rate 70 75 Pulse Rate [Right Brachial] Respiratory Rate 20 Blood Pressure 141/64 H 141/64 H Blood Pressure [Right Arm] Blood Pressure Mean [Right Arm] Blood Pressure Source [Right Arm] Blood Pressure Position [Right Arm] 02 Sat by Pulse Oximetry 97 Oxygen Delivery Method Room Air Room Air Lab Data Lab results reviewed: Yes I reviewed the patient's lab results. Lab Results 08/18/24 12:12: SARS-CoV-2 (PCR) Detected A, Influenza A Untype (PCR) Not detected, Influenza Type B (PCR) Not detected Orders (Tests/Meds): ORDERS Category Date Time Status Rapid PCR Covid and Flu A/B Stat Lab 08/18/24 12:12 Completed Medical Decision Narrative: In summary patient is a 83-year-old male who presents to the emergency department for evaluation of home COVID test being positive. Patient is hemodynamically stable with a blood pressure 146/69 pulse 73 respiratory rate 20 O2 sats 99% on room air upon arrival, febrile with a temperature of 99.1. Physical exam however shows that his breath sounds are clear and equal bilaterally to the bases with no increased work of breathing. Differential diagnosis includes COVID or other viral upper respiratory tract infection etc. Initial workup will be conducted with a rapid COVID and flu test at patient's request.. Initial interventions were considered however patient is minimally symptomatic and has no red flags for intervention thus it is deferred. Initial workup reviewed by me and patient is indeed COVID-positive flu negative.. Upon repeat evaluation patient remains with an oxygen saturation above 97% without increased work of breathing. Given this I will order Paxlovid and instructed patient to follow-up PCP for recheck. <Darius Fleming MD - Last Filed: 08/21/24 07:28> Vital Signs: 08/18/24 12:05 08/18/24 12:30 08/18/24 13:00 Temperature 99.1 F Temperature Source Oral Pulse Rate 70 79 Pulse Rate [Right Brachial] 73 Respiratory Rate 20 Blood Pressure 121/65 134/71 Blood Pressure [Right Arm] 146/69 H Blood Pressure Mean [Right Arm] 94 Blood Pressure Source [Right Arm] Automatic Cuff Blood Pressure Position [Right Arm] Supine 02 Sat by Pulse Oximetry 99 98 97 Oxygen Delivery Method Room Air Room Air 08/18/24 13:30 08/18/24 13:48 Temperature 99.1 F Temperature Source Pulse Rate 70 75 Pulse Rate [Right Brachial] Respiratory Rate 20 Blood Pressure 141/64 H 141/64 H Blood Pressure [Right Arm] Blood Pressure Mean [Right Arm] Blood Pressure Source [Right Arm] Blood Pressure Position [Right Arm] 02 Sat by Pulse Oximetry 97 Oxygen Delivery Method Room Air Room Air Lab Data Lab Results 08/18/24 12:12: SARS-CoV-2 (PCR) Detected A, Influenza A Untype (PCR) Not detected, Influenza Type B (PCR) Not detected Orders (Tests/Meds): ORDERS Category Date Time Status Rapid PCR Covid and Flu A/B Stat Lab 08/18/24 12:12 Completed Medical Decision Narrative: In summary patient is a 83-year-old male who presents to the emergency department for evaluation of home COVID test being positive. Patient is hemodynamically stable with a blood pressure 146/69 pulse 73 respiratory rate 20 O2 sats 99% on room air upon arrival, febrile with a temperature of 99.1. Physical exam however shows that his breath sounds are clear and equal bilaterally to the bases with no increased work of breathing. Differential diagnosis includes COVID or other viral upper respiratory tract infection etc. Initial workup will be conducted with a rapid COVID and flu test at patient's request.. Initial interventions were considered however patient is minimally symptomatic and has no red flags for intervention thus it is deferred. Initial workup reviewed by me and patient is indeed COVID-positive flu negative.. Upon repeat evaluation patient remains with an oxygen saturation above 97% without increased work of breathing. Given this I will order Paxlovid and instructed debby melendez to follow-up PCP for recheck. I independently evaluated and interviewed patient. Well-appearing overall, just congestion symptoms. No fevers. Physical exam benign. Essentially wants to know if he is COVID-positive because he has a Watchman procedure scheduled for next week on 08/23 and wants to call his operating physician if he has positive/confirmed. I was consulted by the KELVIN, and we discussed the complexity of the problems being addressed. I approved the treatment and management plan for this patient's care in the Emergency Department, thus performing a substantive portion of the medical decision making. Darius Fleming MD Critical Care <DEBBY Blackwell - Last Filed: 08/18/24 13:40> Critical Care Time Critical Care Time: No
[2024-08-18 12:20] LABS: Influenza A, PCR Not Detected (NotDetected); Influenza B, PCR Not Detected (NotDetected)
[2024-08-18 12:30] VITALS: BP 121/65; PULSE 70; O2SAT 98
[2024-08-18 13:00] VITALS: BP 134/71; PULSE 79; O2SAT 97
[2024-08-18 13:30] VITALS: BP 141/64; PULSE 70; O2SAT 97
[2024-08-18 13:33] LABS: Coronavirus 19, PCR Detected (NotDetected)
[2024-08-18 13:48] VITALS: BP 141/64; PULSE 75; RESP 20; TEMP 37.3; O2SAT 99
== END 2024-08-18 13:51 | disposition home or self-care (01) ==
PROVIDERS: Emergency Provider Emergency Medicine; PCP Internal Medicine
DX: U07.1 COVID-19 (principal); R05.9 Cough, unspecified; R50.9 Fever, unspecified
CPT/HCPCS: 87636; 99283

== ENCOUNTER 2025-05-25 12:45 | Outpatient (CLI) | payer MEDICARE, SELFPAY ==
[2025-05-25 15:34] LABS: Hematocrit 41.2 % (42.0-52.0); Hemoglobin 13.0 g/dL (14.1-18.0); Immature Granulocytes % 0.5 %; Mean Corpuscular HGB Conc 31.6 g/dL (31.8-35.4); Mean Corpuscular Hemoglobin 28.2 pg (27.0-31.2); Mean Corpuscular Volume 89.4 fl (80-94); Nucleated Red Blood Cells % 0 %; Platelet Count 188 K/mm3 (142-424); Red Blood Count 4.61 M/mm3 (4.60-6.20); Red Cell Distribution Width-SD 49.0 fL; White Blood Count 5.8 K/mm3 (4.8-10.8)
[2025-05-25 20:15] LABS: Alanine Aminotransferase 21 U/L (12-78); Albumin Level 4.5 g/dl (3.5-5.0); Albumin/Globulin Ratio 1.6 (1.1-1.8); Alkaline Phosphatase 45 U/L (38-126); Anion Gap 16.8 mEq/L (5-15); Aspartate Amino Transferase 34 U/L (17-59); Bilirubin,Total 0.6 mg/dl (0.2-1.3); Blood Urea Nitrogen 24 mg/dl (9-20); Calcium 9.2 mg/dl (8.4-10.2); Carbon Dioxide 24 mmol/L (22.0-30.0); Chloride 104 mmol/L (98-107); Cholesterol 135 mg/dl (140-200); Creatinine,Serum 1.70 mg/dl (0.66-1.25); Estimated Glomerular Filt Rate 39 ml/min (>60); GFR (African American) 47 ML/MIN (>60); Globulin 2.8 g/dL (1.3-3.2); Glucose 82 mg/dl (74-100); HDL Cholesterol 48 mg/dl (40-60); Potassium 4.8 mmoL/L (3.5-5.1); Sodium 140 mmol/L (136-145); Total Protein,Serum 7.3 g/dl (6.3-8.2); Triglycerides 93 mg/dl (30-150)
[2025-05-25 20:26] LABS: Free T4 (Free Thyroxine) 1.82 ng/dl (0.78-2.19)
[2025-05-25 22:25] LABS: Thyroid Stimulating Hormone 1.14 uIU/mL (0.465-4.68)
--- OUTSIDE RECORDS SUMMARY | 2025-05-26 11:07 | XMS_ITS | Clinical Summary ---
Author Organization [facility] Address [address] [place] [address] Care Team Providers Care Risk Assessment Consultant Name Role Phone Trae Lujan MD Primary Care Provider [phone] Daniele Licea MD Unavailable [phone] Allergies Active Allergy Reactions Criticality Noted Date Comments Polyethylene Glycol Shortness of breath High 024 Medications amiodarone (Pacerone) 200 MG tablet Take 1 tablet (200 mg) by mouth 2 (two) times a day. 3 Active metoprolol succinate XL (Toprol-XL) 25 MG 24 hr tablet Take 1 tablet (25 mg) by mouth 1 (one) time each day. 3 Active gabapentin (Neurontin) 100 MG capsule TAKE ONE CAPSULE BY MOUTH TWICE DAILY MAY CAUSE DROWSINESS Active tamsulosin (Flomax) 0.4 MG 24 hr capsule Take 1 capsule (0.4 mg) by mouth 2 (two) times a day. Active rosuvastatin (Crestor) 10 MG tablet Take 1 tablet (10 mg) by mouth every night. Active nitroglycerin (Nitrostat) 0.[address] 1 tablet (0.4 mg) under the tongue. Active Ferrous Sulfate (Iron) 28 MG tablet Take 28 mg by mouth 1 (one) time each day. Active Ascorbic Acid (vitamin C) 250 MG tablet Take 2 tablets (500 mg) by mouth 1 (one) time each day. Active Choline Fenofibrate (Fenofibric Acid) 135 MG capsule delayed-release Take 135 mg by mouth 1 (one) time each day. Active aspirin 81 MG EC tablet Take 1 tablet (81 mg) by mouth 1 (one) time each day. 30 tablet 11 5 10/19/19 26 Active famotidine (Pepcid) 20 MG tablet Take 1 tablet by mouth 2 times a day. 5 Active Active Problems Problem Noted Date Diagnosed Date Persistent atrial fibrillation 10/19/2024 Paroxysmal atrial fibrillation 10/05/2024 Atrial flutter 09/19/2024 Anemia 07/14/2024 Dyspnea 07/14/2024 Gastritis 07/14/2024 GI bleed 07/14/2024 Hearing loss 07/14/2024 Iron deficiency anemia due to chronic blood loss 07/14/2024 Tachy-kirit syndrome 07/14/2024 Tinnitus 07/14/2024 Obstructive sleep apnea on CPAP 09/25/2023 Overview (09/25/2023): Obstructive sleep apnea/CPAP nightly. Lumbar disc disease 09/25/2023 Overview (09/25/2023): Lumbar disc disease under medical treatment, summer 2013. Hypertension 09/25/2023 Hyperlipidemia 09/25/2023 CHF (congestive heart failure) 09/25/2023 Chest pain 09/25/2023 BPH (benign prostatic hyperplasia) 09/25/2023 Benign essential hypertension 09/25/2023 CASTILLO (acute kidney injury) 09/25/2023 Viral syndrome 09/25/2023 Subdural hematoma 09/25/2023 Overview (09/25/2023): 1. History of subdural hematoma, May 2010. a. Status post radha hole, Dr. Abarca. Stented coronary artery 09/25/2023 Renal insufficiency 09/25/2023 PAF (paroxysmal atrial fibrillation) 09/25/2023 Atrial fibrillation with rapid ventricular respo nse 09/25/2023 Arteriosclerosis of coronary artery 09/25/2023 Overview (09/25/2023): 1. Coronary artery disease, [place] vessels. a. Inferior wall STEMI, March 2010. b. [facility], 04/15/2010: PTCA and BMS to RCA, [facility] in [place]; normal LV function. c. [facility], 12/27/2010: Inferior wall ischemia, ejection fraction of 65%. d. [facility], 01/22/2011: Minor nonobstructive coronary artery disease; ejection fraction of 65% with moderate inferobasilar hypokinesia. Pacemaker 09/08/2023 A-fib 09/08/2023 Coronary artery disease invo lving [place] coronary artery of [place] heart without angina pectoris 09/08/2023 Arthritis of right hip 08/04/2016 Status post total replacement of right hip 08/04 Encounters Date Type Department Care Team Description 05/02/2025 Telephone [facility] [address] [place] [address] Jillian Arce from Last 3 Months Immunizations Immunization Administration Dates Next Due Influenza Vaccine, Quadrivalent, Adjuvanted 04/2021 Influenza, high-dose, quadrivalent 06/29/2023 Influenza, seasonal, injectable, preservative fr ee 06/07/2020 Influenza, trivalent, adjuvanted 09/19/2024,06/22 Moderna Covid-19 Vaccine 12y +, Douglas Protein, Preservative free 06/29/2023 Zoster, Recombinant 07/08/2024,04/28/2024 Family History Medical History Relation Name Comments No Known Problems Father No Known Problems Mother Relation Name Status Comments Father Mother Social History Tobacco Use Types Packs/Day Years Used Date Smoking Tobacco: Former Cigarettes Q uit: 12/03/2019 Smokeless Tobacco: Never Tobacco Cessation:Counseling Given: Not Answered Alcohol Use Standard Drinks/Week Comments Never 0 (1 standard drink = 0.6 oz pur e alcohol) PHQ-2 Answer Date Recorded Patient Health Questionnaire-2 Score 0 02/14/2025 PHQ-9 Answer Date Recorded Patient Health Questionnaire-9 Score 0 02/14/2025 Sex and Gender Information Value Date Recorded Sex Assigned at Not on file Legal Sex Male 8:19 PM EDT Gender Identity Not on file Sexual Orientation Not on file Last Filed Vital Signs Vital Sign Reading Time Taken Comments Blood Pressure 146/70 02/14/2025 11:31 AM EDT Pulse 72 02/14/2025 11:31 AM EDT Temperature 36.4 C (97.6 F) 10/19/2024 9:47 AM EST Respiratory Rate 10 10/19/2024 1:30 PM EST Oxygen Saturation 99% 02/14/2025 11: 31 AM EDT Inhaled Oxygen Concentration - - Weight 96.5 kg (212 lb 11.9 oz) 025 11:26 AM EDT Height 188 cm (6' 2 ) 02/14/2025 11:26 AM EDT Body Mass Index 27.31 02/14/2025 11:26 AM EDT Plan of Treatment Upcoming Encounters Date Type Department Care Team ([facility] st Contact Info) Description 08/22/2025 10:00 AM EST Office Visit [facility] [place] [address], [address] [place] [address] Travis James MD [address] [place] [address] Health Maintenance Due Date Last Done Comments [facility]-Medicare Annual Wellness (AWV) 1942 [facility]-/Child/Adol SDOH Screenings 1942 [facility]- SDOH Screenings 1960 [facility]-Adult SDOH Screenings 1960 [facility]-DTaP,Tdap,and Td Vaccines (1 - Tdap) 1961 [facility]-Pneumococcal Vaccine: 50+ Years (1 of 2 - PCV) 1961 [facility]-RSV Vaccine: 60+ Years or (1 - 1-dose 75+ series) 2017 [facility]-CSVST-21 Vaccine (8 - Moderna risk season) 2024 05/26/2024, 06/29/2023, 05/29/2022, Additional history exists [facility]-Influenza Vaccine (#1) 05/22/202509/19, 06/29/2023, 07/29/2021, Additional history exists [facility]-Depression Screening 02/14/2026 02/14/2025, 01/20 [facility]-Zoster Vaccines Completed 07/08/2024, [facility]-Obesity Intervention Completed 025, 10/06/2024, 10/06/2024, Additional history exists HPV Vaccines Aged Out No longer eligi ble based on patient's age to complete this topic [facility]-HIB Vaccines Aged Out No longer e ligible based on patient's age to complete this topic [facility]-Hepatitis A Vaccines Aged Out No longer eligible based on patient's age to complete this topic [facility]-IPV Vaccines Aged Out No longer e ligible based on patient's age to complete this topic [facility]-Rotavirus Vaccines Aged Out No lo nger eligible based on patient's age to complete this topic Medical Devices Implanted Type Area Client Service Manager Device Identifier Shelf Expiration Date Model / Serial / Lot Pacemaker Pacemaker Left: Chest Device Watchman Flx Pro Michelle Closure 27mm - [id number] Implanted:Qt y: 1 on 10/05/2024 by Yves Us MD at [facility] [place] [employer]-[id number] 07/07/2027 [id number] / / [id number] Device Watchman Flx Pro Procedure - [id number] Implanted:Qt y: 1 on 10/05/2024 by Yves Us MD at [facility] [place] [employer]-13 [id number] 07/07/2027 [id number] / / [id number] Device Watchman Flx Pro Michelle Closure 27mm - [id number] Implanted:Qt y: 1 on 10/19/2024 by Yves Us MD at [facility] [place] [employer]-13 [id number] 06/16/2027 [id number] / / [id number] Device Watchman Flx Pro Procedure - [id number] Implanted:Qt y: 1 on 10/19/2024 by Yves Us MD at [facility] [place] [employer]-13 [id number] / / Insurance [place] [id number] [facility] MEDIC[facility] Advance Directives * Full Code (Latest Code Status on File) Date Activated Date Inactivated Comments 10/19/2024 9:42 AM 10/19/2024 6:56 PM Question Answer Comments Patient has decision-making capacity? Yes * Full Code Date Activated Date Inactivated Comments 10/05/2024 11:35 AM 10/05/2024 7:42 PM Question Answer Comments Patient has decision-making capacity? Yes Care Teams Risk Assessment Consultant Relationship Specialty Start Date End Date Trae Lujan MD [address] [place] [address] PCP - General 02/10/23 Daniele Licea MD [address] [facility] [address] [place] [address] Surgeon Neurosurgery 09/25/23
--- OUTSIDE RECORDS SUMMARY | 2025-05-26 11:07 | XMS_ITS | Clinical Summary ---
Author Organization [facility] Address [address] [id number] Care Team Providers Care Manager Progressive Care Name Role Phone Unavailable Primary Care Provider Unavailabl e Social History Tobacco Use Types Packs/Day Years Used Date Smoking Tobacco: Never Assessed Sex and Gender Information Value Date Recorded Sex Assigned at Not on file Legal Sex Male 4:45 PM EST Gender Identity Not on file Sexual Orientation Not on file Plan of Treatment Health Maintenance Due Date Last Done Comments Tdap/Td Vaccine >11 yo (1 - Tdap) 1961 Pneumococcal Vaccines >50 yo (1 of 1 - PCV) 1992 Shingles (Shingrix) (1 of 2) 1992 Annual SDOH Screening 09/21/2024 Influenza Vaccine (#1) 2025 Haemophilus Influenzae Type B (Hib) Vaccine Aged Out No longer eligible b ased on patient's age to complete this topic Hepatitis A (HepA) Vaccine Aged Out N o longer eligible based on patient's age to complete this topic Hepatitis B (HepB) Vaccine Aged Out N o longer eligible based on patient's age to complete this topic Meningococcal ACWY Aged Out No longer eligible based on patient's age to complete this topic Polio (IPV) Aged Out No longer eligi ble based on patient's age to complete this topic Rotavirus (RV) Vaccine Aged Out No lo nger eligible based on patient's age to complete this topic
--- OUTSIDE RECORDS SUMMARY | 2025-05-26 11:07 | XMS_ITS | Clinical Summary ---
Author Organization [facility] Address [address] [place] [id number] Care Team Providers Care Inspector Packer Glass Container Name Role Phone Trae Lujan MD Primary Care Provider [phone] Allergies No known active allergies Medications metoprolol tartrate (LOPRESSOR) 25 MG tablet Take 25 mg by mouth 2 (Two) Times a Day. Active famotidine (PEPCID) 20 MG tablet Take 20 mg by mouth 2 (Two) Times a Day. Active choline fenofibrate (TRILIPIX) 135 MG capsule Take 135 mg by mouth Daily. Active pregabalin (LYRICA) 75 MG capsule Take 75 mg by mouth Daily. Active pramipexole (MIRAPEX) 0.25 MG tablet Take 0.25 mg by mouth Daily. Active vitamin B-12 (CYANOCOBALAMIN) 1000 MCG tablet Take 1,000 mcg by mouth Daily. Active sildenafil (VIAGRA) 100 MG tablet Take 100 mg by mouth Daily As Needed for erectile dysfunction. Active nitroglycerin (NITROSTAT) 0.[address] 0.4 mg under the tongue As Needed for chest pain (Never used). Take no more than 3 doses in 15 minutes. Active tamsulosin (FLOMAX) 0.4 MG capsule 24 hr capsule Take 1 capsule by mouth Every Night. Active rosuvastatin (CRESTOR) 10 MG tablet Take 10 mg by mouth Daily. Active aspirin 81 MG tablet Take 1 tablet by mouth Daily. Resume in 1 month 6 Active aspirin EC 325 MG EC tablet Take 1 tablet by mouth Daily. For 1 month 30 tablet 6 Active docusate sodium 100 MG capsule Take 100 mg by mouth 2 (Two) Times a Day As Needed for constipation. 60 capsule 6 Active lisinopril (PRINIVIL,ZESTRI L) 20 MG tablet Take 20 mg by mouth 2 (Two) Times a Day. 8 Active Active Problems Problem Noted Date Diagnosed Date Arthritis of right hip 08/04/2016 Status post total replacement of right hip 08/04 Coronary artery disease involving lovelock coronar y artery Overview (06/25/2016): 1. Coronary artery disease, lovelock vessels. a. Inferior wall STEMI, March 2010. b. [facility], 04/15/2010: PTCA and BMS to RCA, [facility] in [place]; normal LV function. c. [facility], 12/27/2010: Inferior wall ischemia, ejection fraction of 65%. d. [facility], 01/22/2011: Minor nonobstructive coronary artery disease; ejection fraction of 65% with moderate inferobasilar hypokinesia. Subdural hematoma Overview (06/25/2016): 1. History of subdural hematoma, May 2010. a. Status post radha hole, Dr. Abarca. Benign essential hypertension Hyperlipidemia Obstructive sleep apnea on CPAP Overview (06/25/2016): Obstructive sleep apnea/CPAP nightly. Lumbar disc disease Overview (06/25/2016): Lumbar disc disease under medical treatment, summer 2013. Family History Medical History Relation Name Comments No Known Problems Father Stroke Mother Relation Name Status Comments Father Mother Social History Tobacco Use Types Packs/Day Years Used Date Smoking Tobacco: Former Cigarettes 0.3 34 1 - 07/03/2010 Smokeless Tobacco: Never Alcohol Use Standard Drinks/Week Comments No 0 (1 standard drink = 0.6 oz pur e alcohol) Abuse Screen Answer Date Recorded Unsafe at Home or Work/School Not on file Feels Threatened by Someone? Not on file 05/2023 Does Anyone Keep You from Co ntacting Others or Doint Things Outside the Home? Not on file 06/29/2023 Physical Sign of Abuse Present Not on file 1 Housing Stability Answer Date Recorded Current Living Arrangements Not on file 05/2023 Potentially Unsafe Housing Conditions Not on gab e 06/29/2023 Family and Community Support Answer Dipak e Recorded Help with Day-to-Day Activities Not on file 06/29/2023 Lonely or Isolated Not on file 06/29/2023 Employment Answer Date Recorded Do you want help finding or keeping work or a michael b? Not on file 06/29/2023 Disabilities Answer Date Recorded Concentrating, Remembering, or Making Decisions Difficulty Not on file 06/29/2023 Doing Errands Independently Difficulty Not on fi le 06/29/2023 Education Answer Date Recorded Help with school or training? Not on file Preferred Language Not on file 06/29/2023 Sex and Gender Information Value Date Recorded Sex Assigned at Not on file Legal Sex Male 1:14 PM EDT Gender Identity Not on file Sexual Orientation Not on file Last Filed Vital Signs Vital Sign Reading Time Taken Comments Blood Pressure 166/75 10/14/2017 2:38 PM EST Pulse 65 10/14/2017 2:38 PM EST Temperature 36.7 C (98.1 F) 08/05/2016 9:00 AM EST Respiratory Rate 16 08/05/2016 9:00 AM EST Oxygen Saturation 98% 08/05/2016 9:00 AM EST Inhaled Oxygen Concentration - - Weight 101 kg (222 lb 14.2 oz) 10/14/2017 2:38 P M EST Height 186 cm (6' 1.23 ) 10/14/2017 2:38 PM EST Body Mass Index 29.22 10/14/2017 2:38 PM EST Plan of Treatment Health Maintenance Due Date Last Done Comments LIPID PANEL 1942 TDAP/TD VACCINES (1 - Tdap) 1961 COLOGUARD 1987 COLON CANCER SCREENING 5 YEAR SIGMOIDOSCOPY 1987 COLONOSCOPY [address] CANCER SCREENING 1987 CT COLONOGRAPHY 1987 FECAL OCCULT BLOOD TEST 1987 FIT Testing (1 year) 1987 Pneumococcal Vaccine 50+ (1 of 1 - PCV) 1992 ZOSTER VACCINE (1 of 2) 1992 ANNUAL PHYSICAL 10/14/2017 RSV Vaccine - Adults (1 - 1-dose 75+ series) 02/01/201 8 COVID-19 Vaccine ( season) 2025 INFLUENZA VACCINE 06/21/2025 Medical Devices Implanted Type Area Auditing Manager Device Identifier Shelf Expiration Date Model / Serial / Lot Cup Acet Pinn Sector W Griptn 58mm - [id number] Implanted:Qt y: 1 on 08/04/2016 by Leonides Jose MD at [facility] Implant Right: Acetabulum DEPUY [id number] 05/21/2026 [id number] / / [id number] Scrw Canc Pinn 6.5x25mm - [id number] Implanted:Qt y: 1 on 08/04/2016 by Leonides Jose MD at [facility] Implant Right: Acetabulum DEPUY [id number] 05/21/2026 [id number] / / [id number] Liner Acet Altrx Pinn Ntrl [id number] - [id number] Implanted:Qt y: 1 on 08/04/2016 by Leonides Jose MD at [facility] Implant Right: Acetabulum DEPUY 05/21/2021 [id number] / / [id number] Stem Fem Corail Cmtls W/Col Amt Sz13 - [id number] Implanted:Qt y: 1 on 08/04/2016 by Leonides Jose MD at [facility] Implant Right: Hip DEPUY [id number] 05/21/2021 [id number] / / [id number] Hd Fem Bioloxdelta/ Art Ceram 36mm Pls5 - [id number] Implanted:Qt y: 1 on 08/04/2016 by Leonides Jose MD at [facility] Implant Right: Hip DEPUY 05/21/2021 [id number] / / [id number] Totl Hip Coa Depuy - [id number] Implanted:Qt y: 1 on 08/04/2016 by Leonides Jose MD at [facility] Implant Right: Acetabulum DEPUY CAPHIPTOTAL DEP7 / / [facility] Advance Directives * Full Code (Latest Code Status on File) Date Activated Date Inactivated Comments 08/04/2016 12:34 PM 08/05/2016 4:28 PM Care Teams Inspector Packer Glass Container Relationship Specialty Start Date End Date Trae Lujan MD [address] [facility] [address] [place] [address] PCP - General Internal Medicine 07/03/16
--- OUTSIDE RECORDS SUMMARY | 2025-05-26 11:07 | XMS_ITS | Encounter Summary ---
Author Organization [facility] Address [address] [place] [address] Care Team Providers Care Foreclosure Paralegal Name Role Phone Trae Lujan MD Primary Care Provider [phone] Daniele Licea MD Unavailable [phone] Encounter Details Date Type Department Care Team (Late st Contact Info) Description 05/02/2025 Telephone [facility] [place] [address] [place] [address] [place] [address] Social History Tobacco Use Types Packs/Day Years Used Date Smoking Tobacco: Former Cigarettes Q uit: 12/03/2019 Smokeless Tobacco: Never Alcohol Use Standard Drinks/Week Comments Never 0 [...] on file Sexual Orientation Not on file documented as of this encounter Miscellaneous Notes * Telephone Encounter - Jillian Arce - 05/02/2025 1:39 PM EDT Patient called for 6 month post Watchman telephone follow up. Patient denies any CV, bleeding or neurologic events since last contact. No hospitalizations since last contact. Currently taking Clopidogrel 75 mg and EC ASA 81 mg daily. Instructed to discontinue taking Plavix and continue EC ASA. Will contact patient at 1 year post Watchman. documented in this encounter Plan of Treatment Upcoming Encounters Date Type Department Care Team (Late st Contact Info) Description 08/22/2025 10:00 AM EST Office Visit [facility] [place] [address], [address] [place] [address] Travis James MD [address] [place] [address] documented as of this encounter Visit Diagnoses Not on filedocumented in this encounter Additional Health Concerns Assessment Noted Time PHQ-9 Depression Total Score: 0 02/15/20 25 11:29 AM EDT A fall risk assessment has been complete d for the patient 02/14/2025 11:31 AM EDT A Body Mass Index follow-up plan has been documented for the patient 02/14/2025 1:04 PM EDT documented as of this encounter Care Teams Foreclosure Paralegal Relationship Specialty Start Date End Date Trae Lujan MD [address] [facility] [address] [place] [address] PCP - General 02/10/23 Daniele Licea MD [address] [place] [address] Surgeon Neurosurgery 09/25/23 documented as of this encounter
--- OUTSIDE RECORDS SUMMARY | 2025-06-05 15:53 | XMS_ITS | Clinical Summary ---
Author Organization [facility] Address [address] [place] [id number] Care Team Providers Care Optical Technician Name Role Phone Unavailable Primary Care Provider [...] 1992 Shingles (Shingrix) (1 of 2) 1992 RSV 50+ and (1 - 1 -dose 75+ series) 2017 Annual SDOH Screening 09/21/2024 Influenza Vaccine (#1) [...]
--- OUTSIDE RECORDS SUMMARY | 2025-06-05 15:53 | XMS_ITS | Encounter Summary ---
Author Organization [facility] Address [address] [place] [address] Care Team Providers Care Race Starter Name Role Phone Trae Lujan MD Primary Care Provider [phone] Daniele Licea MD Unavailable [phone] Encounter Details Date Type Department Care Team (Late st Contact Info) Description 05/02/2025 Telephone [facility] [place] [address] [place] [address] [place] [address] Social History Tobacco Use Types Packs/Day Years [...] Description 08/22/2025 10:00 AM EST Office Visit [facility] [place] [address], [address] [place] [address] Travis James MD [address] [place] [address] documented as of this encounter [...] documented as of this encounter Care Teams Race Starter Relationship Specialty Start Date End Date Trae Lujan MD [address] [facility] [address] [place] [address] PCP - General 02/10/23 Daniele Licea MD [address] [place] [address] Surgeon Neurosurgery 09/25/23 documented as of this encounter
--- OUTSIDE RECORDS SUMMARY | 2025-06-05 15:53 | XMS_ITS | Clinical Summary ---
Author Organization [facility] Address [address] [place] [address] Care Team Providers Care Central Communications Specialist Name Role Phone Trae Lujan MD Primary Care Provider [phone] Daniele Licea MD Unavailable [phone] Allergies Active Allergy Reactions Criticality Noted Date [...] 09/25/2023 Overview (09/25/2023): 1. Coronary artery disease, prairie band vessels. a. Inferior wall STEMI, March 2010. b. [facility], 04/15/2010: PTCA and BMS to RCA, [facility] in [place]; normal LV function. c. [facility], 12/27/2010: Inferior wall ischemia, ejection fraction of 65%. d. [facility], 01/22/2011: Minor nonobstructive coronary artery disease; ejection fraction of 65% with moderate inferobasilar hypokinesia. Pacemaker 09/08/2023 A-fib 09/08/2023 Coronary artery disease invo lving prairie band coronary artery of prairie band heart without angina pectoris 09/08/2023 Arthritis of right hip 08/04/2016 Status post total replacement of right hip 08/04 Encounters Date Type Department Care Team Description 05/02/2025 Telephone [facility] [place] [address] [place] [address] Jillian Arce from Last 3 Months Immunizations [...] Upcoming Encounters Date Type Department Care Team ([facility] st Contact Info) Description 08/22/2025 10:00 AM EST Office Visit [facility] [place] [address], [address] [place] [address] Travis James MD [address] [place] [address] Health Maintenance Due Date Last Done Comments [facility]-Medicare Annual Wellness (AWV) 1940 [facility]-Infant/Child/Adol SDOH Screenings 1942 [facility]- SDOH Screenings 1960 [facility]-Adult SDOH Screenings 1960 [facility]-DTaP,Tdap,and Td Vaccines (1 - Tdap) 1961 [facility]-Pneumococcal Vaccine: 50+ Years (1 of 2 - PCV) 1961 [facility]-RSV Vaccine: 60+ Years or (1 - 1-dose 75+ series) 2017 [id number] Vaccine (8 - Moderna risk season) 2025 05/26/2024, 06/29/2023, 05/29/2022, Additional history exists [facility]-Influenza [...] this topic Medical Devices Implanted Type Area Mortgage Manager Device Identifier Shelf Expiration Date Model / Serial / Lot Pacemaker Pacemaker Left: Chest Device Watchman Flx Pro Michelle Closure 27mm - [id number] Implanted:Qt y: 1 on 10/05/2024 by Yves Us MD at [facility] Shopdeca-13 [id number] 07/07/2027 [id number] / / [id number] Device Watchman Flx Pro Procedure - [id number] Implanted:Qt y: 1 on 10/05/2024 by Yves Us MD at [facility] [employer]-13 [id number] 07/07/2027 [id number] / / [id number] Device Watchman Flx Pro Michelle Closure 27mm - [id number] Implanted:Qt y: 1 on 10/19/2024 by Yves Us MD at [facility] [employer]-13 [id number] 06/16/2027 [id number] / / [id number] Device Watchman Flx Pro Procedure - [id number] Implanted:Qt y: 1 on 10/19/2024 by Yves Us MD at [facility] [employer]-13 [id number] / / Insurance [place] [id number] [facility] MEDICARE Advance Directives * Full Code (Latest Code Status on File) Date Activated Date Inactivated Comments 10/19/2024 9:42 AM 10/19/2024 6:56 PM Question Answer Comments Patient has decision-making capacity? Yes * Full Code Date Activated Date Inactivated Comments 10/05/2024 11:35 AM 10/05/2024 7:42 PM Question Answer Comments Patient has decision-making capacity? Yes Care Teams Central Communications Specialist Relationship Specialty Start Date End Date Trae Lujan MD [address] [facility] [address] [place] [address] PCP - General 02/10/23 Daniele Licea MD [address] [facility] [address] [facility] [address] [place] [address] Surgeon Neurosurgery 09/25/23
--- OUTSIDE RECORDS SUMMARY | 2025-06-05 15:53 | XMS_ITS | Clinical Summary ---
Author Organization [facility] Address [address] [place] [id number] Care Team Providers Care Synthetic Chemist Name Role Phone Trae Lujan MD Primary Care Provider [phone] Allergies No known active allergies Medications metoprolol [...] right hip 08/04 Coronary artery disease involving [place] coronar y artery Overview (06/25/2016): 1. Coronary artery disease, [place] vessels. a. Inferior wall STEMI, March 2010. b. [facility], 04/15/2010: PTCA and BMS to RCA, [facility] in [place]; normal LV function. c. [facility], 12/27/2010: Inferior wall ischemia, ejection fraction of 65%. d. [facility], 01/22/2011: Minor nonobstructive coronary artery [...] VACCINE 06/21/2025 Medical Devices Implanted Type Area Hull Builder Device Identifier Shelf Expiration Date Model / Serial / Lot Cup Acet Pinn Sector W Griptn 58mm - [id number] Implanted:Qt y: 1 on 08/04/2016 by Leonides Jose MD at [facility] Implant Right: Acetabulum DEPUY [id number] 05/21/2026 [id number] / / [id number] Scrw Canc Pinn 6.5x25mm - [id number] Implanted:Qt y: 1 on 08/04/2016 by Leonides Jose MD at [facility] Implant Right: Acetabulum DEPUY [id number] 05/21/2026 [id number] / / [id number] Liner Acet Altrx Pinn Ntrl [id number] - [id number] Implanted:Qt y: 1 on 08/04/2016 by Leonides Jose MD at [facility] Implant Right: Acetabulum DEPUY 05/21/2021 [id number] / / [id number] Stem Fem Corail Cmtls W/Col Amt Sz13 - [id number] Implanted:Qt y: 1 on 08/04/2016 by Leonides Jose MD at [facility] Implant Right: Hip DEPUY [id number] 05/21/2021 [id number] / / [id number] Hd Fem Bioloxdelta/ Art Ceram 36mm Pls5 - [id number] Implanted:Qt y: 1 on 08/04/2016 by Leonides Jose MD at [facility] Implant Right: Hip DEPUY 05/21/2021 [id number] / / [id number] Totl Hip Coa Depuy - [id number] Implanted:Qt y: 1 on 08/04/2016 by Leonides Jose MD at [facility] Implant Right: Acetabulum DEPUY CAPHIPTOTAL DEP7 / / [facility] Advance Directives * Full Code (Latest Code Status on File) Date Activated Date Inactivated Comments 08/04/2016 12:34 PM 08/05/2016 4:28 PM Care Teams Synthetic Chemist Relationship Specialty Start Date End Date Trae Lujan MD [address] [facility] [address] [place] [address] PCP - General Internal Medicine 07/03/16
== END 2025-05-25 23:59 | disposition home or self-care (01) ==
LOC: LAB.DROPOF 06-05 15:51
PROVIDERS: PCP Internal Medicine; Visit Provider Internal Medicine
DX: I12.9 Hypertensive chronic kidney disease with stage 1 through stage 4 chronic kidney disease, or unspecified chronic kidney disease (principal); N18.4 Chronic kidney disease, stage 4 (severe); N40.0 Benign prostatic hyperplasia without lower urinary tract symptoms; D64.9 Anemia, unspecified; E78.2 Mixed hyperlipidemia; I48.0 Paroxysmal atrial fibrillation; K29.70 Gastritis, unspecified, without bleeding; D50.0 Iron deficiency anemia secondary to blood loss (chronic)
CPT/HCPCS: 80053; 80061; 84439; 84443; 85025